=== PATIENT | male | born 1940 | race Caucasian/White ===

== ENCOUNTER 2016-09-14 12:00 | Inpatient (IN) | payer MEDICARE, OTHER ==
[2016-09-14] MEDS ORDERED: SODIUM CHLORIDE 0.9% 1,000 ML IV ONE ×4 (13:31→18:15)
[2016-09-14] MEDS ORDERED: HYDROmorphone 1 MG/ML SYRINGE IVP STA (13:32)
[2016-09-14] MEDS ORDERED: ONDANSETRON 4 MG/2 ML VIAL IVP STA (13:56)
[2016-09-14] MEDS ORDERED: ONDANSETRON 4 MG/2 ML VIAL ONE (14:01)
[2016-09-14] MEDS ORDERED: IOPAMIDOL-300 100 ML VIAL IVP ONE ×2 (15:03)
[2016-09-14] MEDS ORDERED: PIPERACILLIN/TAZOBACTAM 4.5 GM in SODIUM CHLORIDE 0.9% MINIBAG 100 ML IV STA (15:25)
[2016-09-14] MEDS ORDERED: HYDROmorphone PCA 10 MG IV PRN ×2 (16:23→18:52)
[2016-09-14] MEDS ORDERED: SODIUM CHLORIDE FLUSH 0.9% 10 ML SYRINGE IVP PRN (16:23)
[2016-09-14] MEDS ORDERED: ONDANSETRON 4 MG/2 ML VIAL IVP PRN ×2 (16:23→18:51)
[2016-09-14] MEDS ORDERED: LIDOCAINE MPF 1%-EPI 1:200000 30 ML VIAL SUBQ ONE ×2 (16:57)
[2016-09-14] MEDS ORDERED: BUPIVACAINE 0.25% PF 10 ML VIAL SUBQ ONE ×2 (16:57)
[2016-09-14] MEDS ORDERED: MIDAZOLAM 2 MG/2 ML VIAL IVP ONE (17:00)
[2016-09-14] MEDS ORDERED: LIDOCAINE-MPF 2% 5 ML VIAL IM ONE (17:00)
[2016-09-14] MEDS ORDERED: ONDANSETRON 4 MG/2 ML VIAL IVP ONE (17:00)
[2016-09-14] MEDS ORDERED: PROPOFOL 200 MG/20 ML VIAL IVP ONE (17:00)
[2016-09-14] MEDS ORDERED: fentaNYL 100 MCG/2 ML VIAL IVP ONE (17:00)
[2016-09-14] MEDS ORDERED: LACTATED RINGERS 1,000 ML IV SCH ×2 (17:00)
[2016-09-14] MEDS ORDERED: SUCCINYLCHOLINE 200 MG/10 ML VIAL IVP ONE (17:00)
[2016-09-14] MEDS ORDERED: DEXAMETHASONE 4 MG/ML VIAL IVP ONE (17:00)
[2016-09-14] MEDS ORDERED: ROCURONIUM 50 MG/5 ML VIAL IVP ONE (17:00)
[2016-09-14] MEDS ORDERED: PIPERACILLIN/TAZOBACTAM 3.375 GM in SODIUM CHLORIDE 0.9% MINIBAG 100 ML IV SCH ×4 (18:00)
[2016-09-14] MEDS ORDERED: HYDROmorphone 1 MG/ML SYRINGE ONE (18:45)
[2016-09-14] MEDS: HYDROmorphone 1 MG/ML SYRINGE ONE ×4 (18:46→19:11)
[2016-09-14] MEDS ORDERED: ALBUTEROL NEB 2.5 MG/3 ML INH ONE (18:52)
[2016-09-14] MEDS ORDERED: ALBUTEROL NEB 2.5 MG/3 ML INH PRN (18:53)
[2016-09-14] MEDS ORDERED: ALBUTEROL NEB 2.5 MG/3 ML INH STA (19:26)
[2016-09-14] MEDS: ACETAMINOPHEN 1,000 MG/100 ML 100 ML IV SCH (20:31)
[2016-09-14] MEDS ORDERED: LEVALBUTEROL 1.25 MG INH PRN (20:38)
[2016-09-14] MEDS: LACTATED RINGERS 1,000 ML IV SCH (20:41)
[2016-09-14] MEDS: PIPERACILLIN/TAZOBACTAM 3.375 GM in SODIUM CHLORIDE 0.9% MINIBAG 100 ML IV SCH (20:41)
[2016-09-14] MEDS: SODIUM CHLORIDE FLUSH 0.9% 10 ML SYRINGE IVP SCH (20:41)
[2016-09-14] MEDS: IPRATROPIUM 0.2 MG/ML NEB INH SCH (21:56)
[2016-09-14] MEDS ORDERED: SODIUM CHLORIDE FLUSH 0.9% 10 ML SYRINGE IVP SCH (22:00)
[2016-09-14] MEDS: HYDROmorphone PCA 10 MG IV PRN (22:22)
[2016-09-15] MEDS: PIPERACILLIN/TAZOBACTAM 3.375 GM in SODIUM CHLORIDE 0.9% MINIBAG 100 ML IV SCH ×4 (01:13→19:27)
[2016-09-15] MEDS: ACETAMINOPHEN 1,000 MG/100 ML 100 ML IV SCH ×4 (01:13→18:50)
[2016-09-15] MEDS: metroNIDAZOLE 500 MG/100 ML 100 ML IV SCH ×4 (06:11→23:59)
[2016-09-15] MEDS: SODIUM CHLORIDE FLUSH 0.9% 10 ML SYRINGE IVP SCH ×3 (06:11→19:30)
[2016-09-15] MEDS: BUDESONIDE 0.5 MG/2 ML NEB INH SCH ×2 (08:02→21:26)
[2016-09-15] MEDS: IPRATROPIUM 0.2 MG/ML NEB INH SCH ×4 (08:02→21:26)
[2016-09-15] MEDS: LACTATED RINGERS 1,000 ML IV SCH ×3 (09:23→20:53)
[2016-09-15] MEDS ORDERED: IPRATROPIUM 0.2 MG/ML NEB INH ONE (11:49)
[2016-09-15] MEDS ORDERED: LEVALBUTEROL 1.25 MG INH ONE (11:49)
[2016-09-15] MEDS: LEVALBUTEROL 1.25 MG INH SCH ×3 (11:51→21:41)
[2016-09-16] MEDS: ACETAMINOPHEN 1,000 MG/100 ML 100 ML IV SCH ×4 (00:28→20:16)
[2016-09-16] MEDS: PIPERACILLIN/TAZOBACTAM 3.375 GM in SODIUM CHLORIDE 0.9% MINIBAG 100 ML IV SCH ×4 (00:28→17:42)
[2016-09-16] MEDS: PANTOPRAZOLE 40 MG VIAL IVP SCH (06:25)
[2016-09-16] MEDS: metroNIDAZOLE 500 MG/100 ML 100 ML IV SCH ×4 (06:26→23:16)
[2016-09-16] MEDS: SODIUM CHLORIDE FLUSH 0.9% 10 ML SYRINGE IVP SCH ×3 (06:26→23:16)
[2016-09-16] MEDS: LACTATED RINGERS 1,000 ML IV SCH ×2 (06:27→20:16)
[2016-09-16] MEDS: HYDROmorphone PCA 10 MG IV PRN (07:07)
[2016-09-16] MEDS: BUDESONIDE 0.5 MG/2 ML NEB INH SCH ×2 (07:35→22:48)
[2016-09-16] MEDS: LEVALBUTEROL 1.25 MG INH SCH ×4 (07:35→22:48)
[2016-09-16] MEDS: IPRATROPIUM 0.2 MG/ML NEB INH SCH ×4 (07:36→22:48)
[2016-09-16] MEDS: SODIUM CHLORIDE FLUSH 0.9% 10 ML SYRINGE IVP PRN (12:44)
[2016-09-16] MEDS: ONDANSETRON 4 MG/2 ML VIAL IVP PRN (23:16)
[2016-09-17] MEDS: PIPERACILLIN/TAZOBACTAM 3.375 GM in SODIUM CHLORIDE 0.9% MINIBAG 100 ML IV SCH ×4 (00:45→19:57)
[2016-09-17] MEDS: ACETAMINOPHEN 1,000 MG/100 ML 100 ML IV SCH ×4 (00:45→19:56)
[2016-09-17] MEDS: metroNIDAZOLE 500 MG/100 ML 100 ML IV SCH ×4 (05:08→23:50)
[2016-09-17] MEDS: PANTOPRAZOLE 40 MG VIAL IVP SCH (06:21)
[2016-09-17] MEDS: LACTATED RINGERS 1,000 ML IV SCH ×3 (06:22→18:24)
[2016-09-17] MEDS: SODIUM CHLORIDE FLUSH 0.9% 10 ML SYRINGE IVP SCH ×3 (06:22→23:15)
[2016-09-17] MEDS: BUDESONIDE 0.5 MG/2 ML NEB INH SCH ×2 (07:00→22:03)
[2016-09-17] MEDS: IPRATROPIUM 0.2 MG/ML NEB INH SCH ×4 (07:00→22:03)
[2016-09-17] MEDS: LEVALBUTEROL 1.25 MG INH SCH ×4 (07:00→22:03)
[2016-09-17] MEDS: PHENOL THROAT SPRAY 177 ML MM PRN (08:53)
[2016-09-17] MEDS ORDERED: SODIUM PHOSPHATE 20 MMOL in SODIUM CHLORIDE 0.9% 250 ML IV ONE (10:30)
[2016-09-17] MEDS: diphenhydrAMINE 25 MG CAPSULE PO PRN (22:00)
[2016-09-18] MEDS: ACETAMINOPHEN 1,000 MG/100 ML 100 ML IV SCH ×4 (01:49→18:47)
[2016-09-18] MEDS: PIPERACILLIN/TAZOBACTAM 3.375 GM in SODIUM CHLORIDE 0.9% MINIBAG 100 ML IV SCH ×5 (02:42→19:09)
[2016-09-18] MEDS: LACTATED RINGERS 1,000 ML IV SCH ×4 (05:46→22:05)
[2016-09-18] MEDS: PANTOPRAZOLE 40 MG VIAL IVP SCH (07:03)
[2016-09-18] MEDS: SODIUM CHLORIDE FLUSH 0.9% 10 ML SYRINGE IVP SCH ×3 (07:04→22:06)
[2016-09-18] MEDS: metroNIDAZOLE 500 MG/100 ML 100 ML IV SCH ×3 (07:05→18:00)
[2016-09-18] MEDS: IPRATROPIUM 0.2 MG/ML NEB INH SCH ×3 (09:00→20:30)
[2016-09-18] MEDS: LEVALBUTEROL 1.25 MG INH SCH (09:00)
[2016-09-18] MEDS: BUDESONIDE 0.5 MG/2 ML NEB INH SCH (09:00)
[2016-09-18] MEDS ORDERED: IOPAMIDOL-300 100 ML VIAL IVP ONE (09:54)
[2016-09-18] MEDS ORDERED: LACTATED RINGERS 1,000 ML IV ONE ×4 (13:25→14:01)
[2016-09-18] MEDS ORDERED: PROPOFOL 200 MG/20 ML VIAL IVP ONE (13:30)
[2016-09-18] MEDS ORDERED: MIDAZOLAM 2 MG/2 ML VIAL IVP ONE (13:30)
[2016-09-18] MEDS ORDERED: ROCURONIUM 50 MG/5 ML VIAL IVP ONE (13:30)
[2016-09-18] MEDS ORDERED: fentaNYL 250 MCG/5 ML VIAL IVP ONE (13:30)
[2016-09-18] MEDS ORDERED: BUPIVACAINE 0.25%-EPI 1:200000 PF 30 ML VIAL SUBQ ONE (13:30)
[2016-09-18] MEDS ORDERED: SUCCINYLCHOLINE 200 MG/10 ML VIAL IVP ONE (13:30)
[2016-09-18] MEDS ORDERED: SUFENTA/BUPIV 0.4 MCG/0.0625% 150 ML EP ONE (15:19)
[2016-09-18] MEDS ORDERED: SUFENTA/BUPIV 0.4 MCG/0.0625% EPIDURAL 150 ML EP PRN (16:29)
[2016-09-18] MEDS ORDERED: ONDANSETRON 4 MG/2 ML VIAL IVP PRN (16:29)
[2016-09-18] MEDS ORDERED: NALBUPHINE 20 MG/ML AMP IVP PRN (16:29)
[2016-09-18] MEDS ORDERED: LORazepam 2 MG/ML SYRINGE IVP PRN (16:41)
[2016-09-18] MEDS: PROPOFOL 1000 MG/100 ML 100 ML IV SCH (17:20)
[2016-09-18] MEDS: TPN (CLINIMIX E 5/15) 2,000 ML with MULTIVITAMIN 10 ML, TRACE ELEMENTS V CONC 1 ML IV SCH ×3 (19:06)
[2016-09-18] MEDS: FAT EMULSION 20% 250 ML IV SCH (19:09)
[2016-09-18] MEDS ORDERED: LEVALBUTEROL 1.25 MG INH ONE (19:41)
[2016-09-18] MEDS ORDERED: FLUOCINONIDE 0.05% CREAM 15 GM TUBE TOP PRN (21:00)
[2016-09-19] MEDS: metroNIDAZOLE 500 MG/100 ML 100 ML IV SCH ×5 (00:06→23:47)
[2016-09-19] MEDS: INSULIN REGULAR HUMAN 100 UNIT/1 ML 10 ML MDV SUBQ SCH ×5 (00:14→23:52)
[2016-09-19] MEDS: ACETAMINOPHEN 1,000 MG/100 ML 100 ML IV SCH ×4 (01:14→18:07)
[2016-09-19] MEDS: PIPERACILLIN/TAZOBACTAM 3.375 GM in SODIUM CHLORIDE 0.9% MINIBAG 100 ML IV SCH ×4 (01:14→18:07)
[2016-09-19] MEDS: LACTATED RINGERS 1,000 ML IV SCH (01:20)
[2016-09-19] MEDS: SUFENTA/BUPIV 0.4 MCG/0.0625% 150 ML EP PRN ×2 (04:19→15:45)
[2016-09-19] MEDS: SODIUM CHLORIDE FLUSH 0.9% 10 ML SYRINGE IVP SCH ×3 (05:52→21:41)
[2016-09-19] MEDS ORDERED: POTASSIUM PHOSPHATE 21 MMOL in SODIUM CHLORIDE 0.9% 250 ML IV SCH (06:22)
[2016-09-19] MEDS: PROPOFOL 1000 MG/100 ML 100 ML IV SCH ×3 (06:40→20:12)
[2016-09-19] MEDS: PANTOPRAZOLE 40 MG VIAL IVP SCH ×2 (06:47→06:54)
[2016-09-19] MEDS: ALBUTEROL NEB 2.5 MG/3 ML INH PRN (07:40)
[2016-09-19] MEDS: IPRATROPIUM 0.2 MG/ML NEB INH SCH ×4 (07:40→20:19)
[2016-09-19] MEDS: TPN (CLINIMIX E 5/15) 2,000 ML with MULTIVITAMIN 10 ML, TRACE ELEMENTS V CONC 1 ML IV SCH ×6 (08:00→18:37)
[2016-09-19] MEDS: CHLORHEXIDINE GLUCONATE 15 ML UDC PO SCH ×3 (09:26→21:41)
[2016-09-19] MEDS: PHENOL THROAT SPRAY 177 ML MM PRN (15:29)
[2016-09-19] MEDS: FAT EMULSION 20% 250 ML IV SCH (18:37)
[2016-09-20] MEDS: ACETAMINOPHEN 1,000 MG/100 ML 100 ML IV SCH ×4 (01:15→18:28)
[2016-09-20] MEDS: PROPOFOL 1000 MG/100 ML 100 ML IV SCH ×4 (01:27→15:02)
[2016-09-20] MEDS: PIPERACILLIN/TAZOBACTAM 3.375 GM in SODIUM CHLORIDE 0.9% MINIBAG 100 ML IV SCH ×5 (01:28→17:45)
[2016-09-20] MEDS: LACTATED RINGERS 1,000 ML IV SCH (02:45)
[2016-09-20] MEDS: metroNIDAZOLE 500 MG/100 ML 100 ML IV SCH ×4 (05:39→23:47)
[2016-09-20] MEDS: SODIUM CHLORIDE FLUSH 0.9% 10 ML SYRINGE IVP SCH ×3 (06:55→21:30)
[2016-09-20] MEDS: PANTOPRAZOLE 40 MG VIAL IVP SCH (06:55)
[2016-09-20] MEDS: INSULIN REGULAR HUMAN 100 UNIT/1 ML 10 ML MDV SUBQ SCH ×3 (07:03→18:27)
[2016-09-20] MEDS: ALBUTEROL NEB 2.5 MG/3 ML INH PRN (07:12)
[2016-09-20] MEDS: IPRATROPIUM 0.2 MG/ML NEB INH SCH ×3 (07:12→15:09)
[2016-09-20] MEDS: SUFENTA/BUPIV 0.4 MCG/0.0625% 150 ML EP PRN ×2 (08:36→19:23)
[2016-09-20] MEDS: POTASSIUM CHLOR 20 MEQ/100 ML 100 ML IV SCH ×2 (08:42→09:40)
[2016-09-20] MEDS: CHLORHEXIDINE GLUCONATE 15 ML UDC PO SCH ×2 (09:40→21:26)
[2016-09-20] MEDS ORDERED: POTASSIUM PHOSPHATE 15 MMOL in SODIUM CHLORIDE 0.9% 250 ML IV ONE (10:00)
[2016-09-20] MEDS ORDERED: CALCIUM GLUCONATE 1,000 MG in SODIUM CHLORIDE 0.9% 50 ML IV ONE (10:20)
[2016-09-20] MEDS: SODIUM CHLORIDE FLUSH 0.9% 10 ML SYRINGE IVP PRN (15:03)
[2016-09-20] MEDS: HEPARIN 5,000 UNIT/ML VIAL SUBQ SCH ×2 (15:05→21:30)
[2016-09-20] MEDS ORDERED: ALTEPLASE 2 MG VIAL IC ONE (15:51)
[2016-09-20] MEDS: TPN (CLINIMIX E 5/15) 2,000 ML with MULTIVITAMIN 10 ML, TRACE ELEMENTS V CONC 1 ML, POT... IV SCH ×5 (19:33)
[2016-09-20] MEDS: diphenhydrAMINE INJ 50 MG/ML VIAL IVP PRN (21:30)
[2016-09-21] MEDS: INSULIN REGULAR HUMAN 100 UNIT/1 ML 10 ML MDV SUBQ SCH ×4 (00:03→19:22)
[2016-09-21] MEDS: HEPARIN 5,000 UNIT/ML VIAL SUBQ SCH ×3 (05:34→21:12)
[2016-09-21] MEDS: metroNIDAZOLE 500 MG/100 ML 100 ML IV SCH ×4 (05:34→23:10)
[2016-09-21] MEDS: LACTATED RINGERS 1,000 ML IV SCH (05:34)
[2016-09-21] MEDS: SODIUM CHLORIDE FLUSH 0.9% 10 ML SYRINGE IVP SCH ×3 (05:34→21:27)
[2016-09-21] MEDS: ACETAMINOPHEN 1,000 MG/100 ML 100 ML IV SCH ×4 (06:44→18:32)
[2016-09-21] MEDS: PANTOPRAZOLE 40 MG VIAL IVP SCH (06:44)
[2016-09-21] MEDS: PIPERACILLIN/TAZOBACTAM 3.375 GM in SODIUM CHLORIDE 0.9% MINIBAG 100 ML IV SCH ×5 (07:24→18:36)
[2016-09-21] MEDS: SUFENTA/BUPIV 0.4 MCG/0.0625% 150 ML EP PRN ×2 (07:24→18:25)
[2016-09-21] MEDS: POTASSIUM CHLOR 10 MEQ/100 ML 100 ML IV SCH ×4 (07:54→19:21)
[2016-09-21] MEDS: IPRATROPIUM 0.2 MG/ML NEB INH SCH ×5 (09:25→23:28)
[2016-09-21] MEDS: CHLORHEXIDINE GLUCONATE 15 ML UDC PO SCH ×2 (09:52→21:16)
[2016-09-21] MEDS: PHENOL THROAT SPRAY 177 ML MM PRN ×2 (11:17→15:11)
[2016-09-21] MEDS ORDERED: MIN OIL/DIMETHICON/COCONUT OIL 92 GM TUBE TOP ONE (12:02)
[2016-09-21] MEDS ORDERED: MIN OIL/DIMETHICON/COCONUT OIL 92 GM TUBE TOP PRN (12:15)
[2016-09-21] MEDS: TPN (CLINIMIX E 5/15) 2,000 ML with MULTIVITAMIN 10 ML, TRACE ELEMENTS V CONC 1 ML, POT... IV SCH ×5 (19:15)
[2016-09-21] MEDS: diphenhydrAMINE INJ 50 MG/ML VIAL IVP PRN (21:16)
[2016-09-21] MEDS ORDERED: SODIUM CHLORIDE INHALATION 3 ML NEB ONE (23:07)
[2016-09-22] MEDS: ACETAMINOPHEN 1,000 MG/100 ML 100 ML IV SCH ×4 (00:17→19:44)
[2016-09-22] MEDS: PIPERACILLIN/TAZOBACTAM 3.375 GM in SODIUM CHLORIDE 0.9% MINIBAG 100 ML IV SCH ×4 (00:30→19:44)
[2016-09-22] MEDS: INSULIN REGULAR HUMAN 100 UNIT/1 ML 10 ML MDV SUBQ SCH ×4 (00:42→18:34)
[2016-09-22] MEDS ORDERED: FUROSEMIDE 20 MG/2 ML VIAL IVP SCH (02:13)
[2016-09-22] MEDS ORDERED: VANCOMYCIN INJ 1.25 GM in SODIUM CHLORIDE 0.9% 500 ML IV SCH (03:00)
[2016-09-22] MEDS ORDERED: VANCOMYCIN PER PHARMACY 1 GM in SODIUM CHLORIDE 0.9% 250 ML IV SCH (03:00)
[2016-09-22] MEDS: HEPARIN 5,000 UNIT/ML VIAL SUBQ SCH ×3 (05:29→21:23)
[2016-09-22] MEDS: LACTATED RINGERS 1,000 ML IV SCH (05:31)
[2016-09-22] MEDS: SUFENTA/BUPIV 0.4 MCG/0.0625% 150 ML EP PRN ×2 (05:34→18:31)
[2016-09-22] MEDS: metroNIDAZOLE 500 MG/100 ML 100 ML IV SCH ×4 (05:37→23:24)
[2016-09-22] MEDS: SODIUM CHLORIDE FLUSH 0.9% 10 ML SYRINGE IVP SCH ×3 (06:26→21:24)
[2016-09-22] MEDS: PANTOPRAZOLE 40 MG VIAL IVP SCH (07:02)
[2016-09-22] MEDS ORDERED: POTASSIUM PHOSPHATE 15 MMOL in SODIUM CHLORIDE 0.9% 250 ML IV ONE (08:00)
[2016-09-22] MEDS: CHLORHEXIDINE GLUCONATE 15 ML UDC PO SCH ×2 (09:36→21:24)
[2016-09-22] MEDS: IPRATROPIUM 0.2 MG/ML NEB INH SCH ×4 (09:45→19:00)
[2016-09-22] MEDS: ALBUTEROL NEB 2.5 MG/3 ML INH PRN (09:45)
[2016-09-22] MEDS: LEVALBUTEROL 1.25 MG INH SCH (11:31)
[2016-09-22] MEDS: VANCOMYCIN INJ 1 GM, VANCOMYCIN INJ 500 MG in SODIUM CHLORIDE 0.9% 500 ML IV SCH (13:58)
[2016-09-22] MEDS: TPN (CLINIMIX E 5/15) 2,000 ML with MULTIVITAMIN 10 ML, TRACE ELEMENTS V CONC 1 ML, POT... IV SCH ×5 (18:30)
[2016-09-22] MEDS: diphenhydrAMINE INJ 50 MG/ML VIAL IVP PRN (21:24)
[2016-09-23] MEDS: PIPERACILLIN/TAZOBACTAM 3.375 GM in SODIUM CHLORIDE 0.9% MINIBAG 100 ML IV SCH ×4 (00:53→18:37)
[2016-09-23] MEDS: ACETAMINOPHEN 1,000 MG/100 ML 100 ML IV SCH ×4 (01:38→18:37)
[2016-09-23] MEDS: VANCOMYCIN INJ 1 GM, VANCOMYCIN INJ 500 MG in SODIUM CHLORIDE 0.9% 500 ML IV SCH ×2 (01:38→13:43)
[2016-09-23] MEDS: INSULIN REGULAR HUMAN 100 UNIT/1 ML 10 ML MDV SUBQ SCH ×4 (01:39→17:43)
[2016-09-23] MEDS: HEPARIN 5,000 UNIT/ML VIAL SUBQ SCH ×3 (06:00→21:39)
[2016-09-23] MEDS: metroNIDAZOLE 500 MG/100 ML 100 ML IV SCH ×3 (06:02→17:46)
[2016-09-23] MEDS: PANTOPRAZOLE 40 MG VIAL IVP SCH (06:59)
[2016-09-23] MEDS: SODIUM CHLORIDE FLUSH 0.9% 10 ML SYRINGE IVP SCH ×3 (06:59→21:39)
[2016-09-23] MEDS: PROPOFOL 1000 MG/100 ML 100 ML IV SCH ×2 (07:21→17:01)
[2016-09-23] MEDS ORDERED: FLUTICASONE NASAL SPRAY NAS SCH ×2 (09:00)
[2016-09-23] MEDS: IPRATROPIUM 0.2 MG/ML NEB INH SCH ×4 (09:58→19:00)
[2016-09-23] MEDS: CHLORHEXIDINE GLUCONATE 15 ML UDC PO SCH ×2 (09:59→20:29)
[2016-09-23] MEDS: NICOTINE 21 MG PATCH TOP SCH (10:09)
[2016-09-23] MEDS: SUFENTA/BUPIV 0.4 MCG/0.0625% 150 ML EP PRN ×2 (12:49→22:13)
[2016-09-23] MEDS: TPN (CLINIMIX E 5/15) 2,000 ML with MULTIVITAMIN 10 ML, TRACE ELEMENTS V CONC 1 ML, POT... IV SCH ×5 (18:37)
[2016-09-23] MEDS: LACTATED RINGERS 1,000 ML IV SCH (21:39)
[2016-09-23] MEDS: diphenhydrAMINE INJ 50 MG/ML VIAL IVP PRN (21:39)
[2016-09-24] MEDS: metroNIDAZOLE 500 MG/100 ML 100 ML IV SCH ×4 (00:02→18:15)
[2016-09-24] MEDS: ACETAMINOPHEN 1,000 MG/100 ML 100 ML IV SCH ×2 (00:02→06:10)
[2016-09-24] MEDS: INSULIN REGULAR HUMAN 100 UNIT/1 ML 10 ML MDV SUBQ SCH ×4 (00:06→18:16)
[2016-09-24] MEDS: PIPERACILLIN/TAZOBACTAM 3.375 GM in SODIUM CHLORIDE 0.9% MINIBAG 100 ML IV SCH ×4 (00:07→19:17)
[2016-09-24] MEDS: VANCOMYCIN INJ 1 GM, VANCOMYCIN INJ 500 MG in SODIUM CHLORIDE 0.9% 500 ML IV SCH ×2 (01:38→13:34)
[2016-09-24] MEDS: HEPARIN 5,000 UNIT/ML VIAL SUBQ SCH ×3 (06:10→22:17)
[2016-09-24] MEDS: PANTOPRAZOLE 40 MG VIAL IVP SCH (06:11)
[2016-09-24] MEDS: SODIUM CHLORIDE FLUSH 0.9% 10 ML SYRINGE IVP SCH ×3 (06:11→20:15)
[2016-09-24] MEDS ORDERED: MAGNESIUM SULFATE 2 GRAM 50 ML IV ONE (08:00)
[2016-09-24] MEDS ORDERED: oxyCOD/ACETAMIN 5 MG/325 MG TABLET PO PRN (08:07)
[2016-09-24] MEDS: IPRATROPIUM 0.2 MG/ML NEB INH SCH ×3 (08:44→20:00)
[2016-09-24] MEDS ORDERED: TRIAMCINOLONE 55 MCG NASAL SPRAY NAS SCH (09:00)
[2016-09-24] MEDS: CHLORHEXIDINE GLUCONATE 15 ML UDC PO SCH ×2 (09:02→20:27)
[2016-09-24] MEDS: NICOTINE 21 MG PATCH TOP SCH (09:17)
[2016-09-24] MEDS: oxyCOD/ACETAMIN 5 MG/325 MG TABLET PO PRN ×3 (13:10→20:27)
[2016-09-24] MEDS ORDERED: SODIUM CHLORIDE 0.9% 250 ML IV ONE (18:05)
[2016-09-24] MEDS: TPN (CLINIMIX E 5/15) 2,000 ML with MULTIVITAMIN 10 ML, TRACE ELEMENTS V CONC 1 ML, POT... IV SCH ×5 (19:06)
[2016-09-24] MEDS: SODIUM CHLORIDE FLUSH 0.9% 10 ML SYRINGE IVP PRN (19:08)
[2016-09-24] MEDS: FLUTICASONE NASAL SPRAY NAS SCH (20:28)
[2016-09-25] MEDS: oxyCOD/ACETAMIN 5 MG/325 MG TABLET PO PRN ×6 (00:09→19:57)
[2016-09-25] MEDS: metroNIDAZOLE 500 MG/100 ML 100 ML IV SCH ×4 (00:10→18:16)
[2016-09-25] MEDS ORDERED: FUROSEMIDE 20 MG/2 ML VIAL IVP SCH (01:12)
[2016-09-25] MEDS ORDERED: FUROSEMIDE 20 MG/2 ML VIAL IVP ONE (01:14)
[2016-09-25] MEDS: PIPERACILLIN/TAZOBACTAM 3.375 GM in SODIUM CHLORIDE 0.9% MINIBAG 100 ML IV SCH ×4 (01:16→19:26)
[2016-09-25] MEDS: INSULIN REGULAR HUMAN 100 UNIT/1 ML 10 ML MDV SUBQ SCH ×4 (01:19→18:21)
[2016-09-25] MEDS: VANCOMYCIN INJ 1 GM, VANCOMYCIN INJ 500 MG in SODIUM CHLORIDE 0.9% 500 ML IV SCH ×2 (01:48→14:15)
[2016-09-25] MEDS: SODIUM CHLORIDE FLUSH 0.9% 10 ML SYRINGE IVP PRN (04:40)
[2016-09-25] MEDS: HEPARIN 5,000 UNIT/ML VIAL SUBQ SCH ×3 (05:34→21:14)
[2016-09-25] MEDS: SODIUM CHLORIDE FLUSH 0.9% 10 ML SYRINGE IVP SCH ×3 (05:43→23:06)
[2016-09-25] MEDS: IPRATROPIUM 0.2 MG/ML NEB INH SCH ×4 (07:00→19:00)
[2016-09-25] MEDS: CHLORHEXIDINE GLUCONATE 15 ML UDC PO SCH ×2 (09:27→21:27)
[2016-09-25] MEDS: NICOTINE 21 MG PATCH TOP SCH (09:27)
[2016-09-25] MEDS: FUROSEMIDE 20 MG TABLET PO SCH (10:30)
[2016-09-25] MEDS: TPN (CLINIMIX E 5/15) 2,000 ML with MULTIVITAMIN 10 ML, TRACE ELEMENTS V CONC 1 ML, POT... IV SCH ×5 (19:26)
[2016-09-25] MEDS: FAT EMULSION 20% 250 ML IV SCH (19:26)
[2016-09-25] MEDS: FLUTICASONE NASAL SPRAY NAS SCH (21:15)
[2016-09-25] MEDS: diphenhydrAMINE 25 MG CAPSULE PO PRN (21:30)
[2016-09-26] MEDS: INSULIN REGULAR HUMAN 100 UNIT/1 ML 10 ML MDV SUBQ SCH ×5 (00:19→21:14)
[2016-09-26] MEDS: oxyCOD/ACETAMIN 5 MG/325 MG TABLET PO PRN ×6 (00:34→20:24)
[2016-09-26] MEDS: PIPERACILLIN/TAZOBACTAM 3.375 GM in SODIUM CHLORIDE 0.9% MINIBAG 100 ML IV SCH ×4 (01:05→18:37)
[2016-09-26] MEDS: VANCOMYCIN INJ 1 GM, VANCOMYCIN INJ 500 MG in SODIUM CHLORIDE 0.9% 500 ML IV SCH ×2 (01:30→13:38)
[2016-09-26] MEDS: HEPARIN 5,000 UNIT/ML VIAL SUBQ SCH ×3 (06:04→21:02)
[2016-09-26] MEDS: SODIUM CHLORIDE FLUSH 0.9% 10 ML SYRINGE IVP SCH ×3 (06:17→21:03)
[2016-09-26] MEDS: SODIUM CHLORIDE FLUSH 0.9% 10 ML SYRINGE IVP PRN (06:17)
[2016-09-26] MEDS: metroNIDAZOLE 500 MG/100 ML 100 ML IV SCH ×4 (06:38→17:31)
[2016-09-26] MEDS ORDERED: POLYETHYLENE GLYCOL 3350 17 GM PACKET PO PRN (09:04)
[2016-09-26] MEDS: IPRATROPIUM 0.2 MG/ML NEB INH SCH ×2 (09:07→16:55)
[2016-09-26] MEDS: NICOTINE 21 MG PATCH TOP SCH (09:15)
[2016-09-26] MEDS: FUROSEMIDE 20 MG TABLET PO SCH (09:15)
[2016-09-26] MEDS: CHLORHEXIDINE GLUCONATE 15 ML UDC PO SCH ×2 (09:15→20:25)
[2016-09-26] MEDS: MORPHINE 2 MG/ML SYRINGE IVP PRN ×3 (11:08→18:41)
[2016-09-26] MEDS: DOCUSATE SODIUM 100 MG CAPSULE PO SCH ×2 (14:43→20:27)
[2016-09-26] MEDS: METOCLOPRAMIDE 10 MG TABLET PO SCH ×2 (16:08→20:25)
[2016-09-26] MEDS ORDERED: DEXTROSE 5% 1,000 ML IV PRN (17:07)
[2016-09-26] MEDS ORDERED: DEXTROSE 50% ABBOJECT 25 GM/50 ML SYRINGE IVP PRN (17:07)
[2016-09-26] MEDS ORDERED: DEXTROSE GEL 37.5 GM TUBE PO PRN (17:07)
[2016-09-26] MEDS ORDERED: GLUCAGON 1 MG/ML VIAL SUBQ PRN (17:07)
[2016-09-26] MEDS: TPN (CLINIMIX E 5/15) 2,000 ML with MULTIVITAMIN 10 ML, TRACE ELEMENTS V CONC 1 ML, POT... IV SCH ×5 (18:32)
[2016-09-26] MEDS: FAT EMULSION 20% 250 ML IV SCH (18:34)
[2016-09-26] MEDS: FLUTICASONE NASAL SPRAY NAS SCH (20:28)
[2016-09-27] MEDS: metroNIDAZOLE 500 MG/100 ML 100 ML IV SCH ×4 (00:23→17:20)
[2016-09-27] MEDS: oxyCOD/ACETAMIN 5 MG/325 MG TABLET PO PRN ×3 (00:23→17:19)
[2016-09-27] MEDS: PIPERACILLIN/TAZOBACTAM 3.375 GM in SODIUM CHLORIDE 0.9% MINIBAG 100 ML IV SCH ×4 (00:23→18:40)
[2016-09-27] MEDS: SODIUM CHLORIDE FLUSH 0.9% 10 ML SYRINGE IVP PRN ×2 (00:24→04:23)
[2016-09-27] MEDS ORDERED: VANCOMYCIN 1 GM VIAL ONE (01:42)
[2016-09-27] MEDS ORDERED: SODIUM CHLORIDE 0.9% 500 ML IV ONE (01:43)
[2016-09-27] MEDS: VANCOMYCIN INJ 1 GM, VANCOMYCIN INJ 500 MG in SODIUM CHLORIDE 0.9% 500 ML IV SCH ×3 (01:57→14:56)
[2016-09-27] MEDS: DOCUSATE SODIUM 100 MG CAPSULE PO SCH ×3 (06:11→21:17)
[2016-09-27] MEDS: METOCLOPRAMIDE 10 MG TABLET PO SCH (06:31)
[2016-09-27] MEDS: SODIUM CHLORIDE FLUSH 0.9% 10 ML SYRINGE IVP SCH ×3 (06:31→21:17)
[2016-09-27] MEDS: HEPARIN 5,000 UNIT/ML VIAL SUBQ SCH ×3 (06:31→21:12)
[2016-09-27] MEDS: IPRATROPIUM 0.2 MG/ML NEB INH SCH ×2 (07:55→08:09)
[2016-09-27] MEDS ORDERED: IOPAMIDOL-300 100 ML VIAL IVP ONE (08:46)
[2016-09-27] MEDS: INSULIN REGULAR HUMAN 100 UNIT/1 ML 10 ML MDV SUBQ SCH ×2 (09:15→12:40)
[2016-09-27] MEDS: NICOTINE 21 MG PATCH TOP SCH (09:26)
[2016-09-27] MEDS: CHLORHEXIDINE GLUCONATE 15 ML UDC PO SCH ×2 (09:26→21:10)
[2016-09-27] MEDS: FUROSEMIDE 20 MG TABLET PO SCH (09:26)
[2016-09-27] MEDS ORDERED: IPRATROPIUM 0.2 MG/ML NEB INH PRN (10:04)
[2016-09-27] MEDS: FLUTICASONE NASAL SPRAY NAS SCH (21:12)
[2016-09-28] MEDS: VANCOMYCIN INJ 1 GM, VANCOMYCIN INJ 500 MG in SODIUM CHLORIDE 0.9% 500 ML IV SCH (01:26)
[2016-09-28] MEDS: PIPERACILLIN/TAZOBACTAM 3.375 GM in SODIUM CHLORIDE 0.9% MINIBAG 100 ML IV SCH ×4 (01:26→19:08)
[2016-09-28] MEDS: metroNIDAZOLE 500 MG/100 ML 100 ML IV SCH ×2 (01:28→05:53)
[2016-09-28] MEDS: DOCUSATE SODIUM 100 MG CAPSULE PO SCH ×3 (05:52→16:16)
[2016-09-28] MEDS: SODIUM CHLORIDE FLUSH 0.9% 10 ML SYRINGE IVP SCH ×3 (05:53→21:16)
[2016-09-28] MEDS: NICOTINE 21 MG PATCH TOP SCH (08:40)
[2016-09-28] MEDS: FUROSEMIDE 20 MG TABLET PO SCH (08:41)
[2016-09-28] MEDS: CHLORHEXIDINE GLUCONATE 15 ML UDC PO SCH ×2 (08:41→21:16)
[2016-09-28] MEDS: HEPARIN 5,000 UNIT/ML VIAL SUBQ SCH ×3 (08:41→21:12)
[2016-09-28] MEDS ORDERED: ACETAMINOPHEN 325 MG TABLET PO PRN (09:06)
[2016-09-28] MEDS: TAMSULOSIN 0.4 MG CAPSULE PO SCH (21:12)
[2016-09-28] MEDS: FLUTICASONE NASAL SPRAY NAS SCH (21:13)
[2016-09-29] MEDS: PIPERACILLIN/TAZOBACTAM 3.375 GM in SODIUM CHLORIDE 0.9% MINIBAG 100 ML IV SCH ×2 (01:47→06:42)
[2016-09-29] MEDS ORDERED: NICOTINE 14 MG PATCH TOP ONE (05:50)
[2016-09-29] MEDS: NICOTINE 14 MG PATCH TOP SCH (05:52)
[2016-09-29] MEDS: HEPARIN 5,000 UNIT/ML VIAL SUBQ SCH ×3 (06:42→21:01)
[2016-09-29] MEDS: SODIUM CHLORIDE FLUSH 0.9% 10 ML SYRINGE IVP SCH ×3 (06:43→21:03)
[2016-09-29] MEDS: DOCUSATE SODIUM 100 MG CAPSULE PO SCH ×3 (06:54→20:54)
[2016-09-29] MEDS: CHLORHEXIDINE GLUCONATE 15 ML UDC PO SCH ×2 (08:46→21:14)
[2016-09-29] MEDS ORDERED: TAMSULOSIN 0.4 MG CAPSULE PO SCH (09:00)
[2016-09-29] MEDS: CEFUROXIME AXETIL 250 MG TABLET PO SCH ×2 (10:55→21:03)
[2016-09-29] MEDS ORDERED: CHOLESTYRAMINE 4 GM PACKET PO SCH (12:00)
[2016-09-29] MEDS: FLUTICASONE NASAL SPRAY NAS SCH (21:02)
[2016-09-29] MEDS: TAMSULOSIN 0.4 MG CAPSULE PO SCH (21:03)
[2016-09-29] MEDS: SODIUM CHLORIDE FLUSH 0.9% 10 ML SYRINGE IVP PRN (21:03)
[2016-09-30] MEDS: diphenhydrAMINE 25 MG CAPSULE PO PRN (00:11)
[2016-09-30] MEDS: DOCUSATE SODIUM 100 MG CAPSULE PO SCH ×3 (05:38→22:39)
[2016-09-30] MEDS: SODIUM CHLORIDE FLUSH 0.9% 10 ML SYRINGE IVP SCH ×3 (06:38→21:03)
[2016-09-30] MEDS: CHLORHEXIDINE GLUCONATE 15 ML UDC PO SCH ×2 (09:26→21:08)
[2016-09-30] MEDS: CEFUROXIME AXETIL 250 MG TABLET PO SCH ×2 (09:28→21:01)
[2016-09-30] MEDS: NICOTINE 14 MG PATCH TOP SCH (09:28)
[2016-09-30] MEDS: KETOROLAC 10 MG TABLET PO PRN ×2 (11:02→17:05)
[2016-09-30] MEDS: ONDANSETRON 4 MG/2 ML VIAL IVP PRN (21:01)
[2016-09-30] MEDS: TAMSULOSIN 0.4 MG CAPSULE PO SCH (21:02)
[2016-09-30] MEDS: SODIUM CHLORIDE FLUSH 0.9% 10 ML SYRINGE IVP PRN (21:03)
[2016-09-30] MEDS: SODIUM/POTASSIUM/MAG SULFATES 354 ML PREP KIT PO SCH (21:39)
[2016-10-01] MEDS: SODIUM CHLORIDE FLUSH 0.9% 10 ML SYRINGE IVP SCH ×3 (00:50→17:41)
[2016-10-01] MEDS: FLUTICASONE NASAL SPRAY NAS SCH ×2 (05:23→20:37)
[2016-10-01] MEDS: SODIUM CHLORIDE FLUSH 0.9% 10 ML SYRINGE IVP PRN (06:24)
[2016-10-01] MEDS: DOCUSATE SODIUM 100 MG CAPSULE PO SCH ×3 (09:58→20:38)
[2016-10-01] MEDS: SODIUM/POTASSIUM/MAG SULFATES 354 ML PREP KIT PO SCH (12:19)
[2016-10-01] MEDS: CEFUROXIME AXETIL 250 MG TABLET PO SCH ×2 (12:20→20:36)
[2016-10-01] MEDS: NICOTINE 14 MG PATCH TOP SCH (12:20)
[2016-10-01] MEDS: CHLORHEXIDINE GLUCONATE 15 ML UDC PO SCH ×2 (12:21→20:37)
[2016-10-01] MEDS: ONDANSETRON 4 MG/2 ML VIAL IVP PRN (12:27)
[2016-10-01] MEDS ORDERED: LACTATED RINGERS 1,000 ML IV ONE (14:07)
[2016-10-01] MEDS ORDERED: KETAMINE 500 MG/10 ML VIAL IVP ONE (14:20)
[2016-10-01] MEDS ORDERED: MIDAZOLAM 2 MG/2 ML VIAL IVP ONE (14:20)
[2016-10-01] MEDS ORDERED: LIDOCAINE-MPF 2% 5 ML VIAL IM ONE (14:20)
[2016-10-01] MEDS: TAMSULOSIN 0.4 MG CAPSULE PO SCH (20:36)
[2016-10-01] MEDS: diphenhydrAMINE 25 MG CAPSULE PO PRN (20:45)
[2016-10-02] MEDS: DOCUSATE SODIUM 100 MG CAPSULE PO SCH (06:06)
[2016-10-02] MEDS: SODIUM CHLORIDE FLUSH 0.9% 10 ML SYRINGE IVP SCH (06:07)
[2016-10-02] MEDS: NICOTINE 14 MG PATCH TOP SCH (08:47)
[2016-10-02] MEDS: CEFUROXIME AXETIL 250 MG TABLET PO SCH (08:47)
[2016-10-02] MEDS: CHLORHEXIDINE GLUCONATE 15 ML UDC PO SCH (08:49)
== END 2016-10-02 11:59 | disposition home health service (06) | DRG 329 ==
PROC: 0DN80ZZ Release Small Intestine, Open Approach (ICD-10-PCS; principal; 2016-09-14 16:00)
PROC: 0DB80ZZ Excision of Small Intestine, Open Approach (ICD-10-PCS; principal; 2016-09-14 16:00)
PROC: 0DJD0ZZ Inspection of Lower Intestinal Tract, Open Approach (ICD-10-PCS; 2016-09-18)
PROC: 3E0436Z Introduction of Nutritional Substance into Central Vein, Percutaneous Approach (ICD-10-PCS; 2016-09-18)
PROC: 02H633Z Insertion of Infusion Device into Right Atrium, Percutaneous Approach (ICD-10-PCS; 2016-09-18)
PROC: 5A1945Z Respiratory Ventilation, 24-96 Consecutive Hours (ICD-10-PCS; 2016-09-18)
PROC: 0DJD8ZZ Inspection of Lower Intestinal Tract, Via Natural or Artificial Opening Endoscopic (ICD-10-PCS; 2016-09-18)
PROC: 0W3P8ZZ Control Bleeding in Gastrointestinal Tract, Via Natural or Artificial Opening Endoscopic (ICD-10-PCS; 2016-10-01)
DX: K65.9 Peritonitis, unspecified (principal); K56.5 Intestinal adhesions [bands] with obstruction (postinfection); F17.200 Nicotine dependence, unspecified, uncomplicated; K65.1 Peritoneal abscess; K63.1 Perforation of intestine (nontraumatic); Z79.82 Long term (current) use of aspirin; K55.021 Focal (segmental) acute infarction of small intestine; K55.21 Angiodysplasia of colon with hemorrhage; J96.21 Acute and chronic respiratory failure with hypoxia; T81.4XXA Infection following a procedure, initial encounter; J44.9 Chronic obstructive pulmonary disease, unspecified; Y83.8 Other surgical procedures as the cause of abnormal reaction of the patient, or of later complication, without mention of misadventure at the time of the procedure; B96.20 Unspecified Escherichia coli [E. coli] as the cause of diseases classified elsewhere; Z16.30 Resistance to unspecified antimicrobial drugs; K57.30 Diverticulosis of large intestine without perforation or abscess without bleeding; Y92.230 Patient room in hospital as the place of occurrence of the external cause; R00.0 Tachycardia, unspecified; G47.30 Sleep apnea, unspecified; Z99.81 Dependence on supplemental oxygen; F17.210 Nicotine dependence, cigarettes, uncomplicated; K21.9 Gastro-esophageal reflux disease without esophagitis; I72.2 Aneurysm of renal artery; R41.0 Disorientation, unspecified; T40.605A Adverse effect of unspecified narcotics, initial encounter; N50.89 Other specified disorders of the male genital organs; R19.7 Diarrhea, unspecified; D75.1 Secondary polycythemia; R91.8 Other nonspecific abnormal finding of lung field; Z79.2 Long term (current) use of antibiotics; Z79.891 Long term (current) use of opiate analgesic; Z79.51 Long term (current) use of inhaled steroids; Z79.899 Other long term (current) drug therapy; Z78.1 Physical restraint status

== ENCOUNTER 2016-10-22 09:20 | Outpatient (CLI) | payer MEDICARE, OTHER | END 2016-10-22 09:21 | disposition home or self-care (01) | DX: K63.1 Perforation of intestine (nontraumatic) (principal) ==

== ENCOUNTER 2017-01-31 11:52 | Inpatient (IN) | payer MEDICARE, OTHER ==
[2017-01-31 12:47] LABS: BASOPHILS # (AUTO) 0.1 10^3/uL (0.0-0.1); BASOPHILS % (AUTO) 0.3 %; EOSINOPHILS % (AUTO) 0.3 %; HCT - HEMATOCRIT 47.8 % (42.0-52.0); HGB - HEMOGLOBIN 15.5 g/dL (14.0-18.0); LYMPHOCYTES # (AUTO) 0.7 10^3/uL (1.5-3.5); LYMPHOCYTES % (AUTO) 4.6 %; MEAN CORPUSCULAR HEMOGLOBIN 27.4 pg (27.0-31.0); MEAN CORPUSCULAR HGB CONC 32.5 g/dL (32.0-36.0); MEAN CORPUSCULAR VOLUME 84.4 fL (80.0-94.0); MEAN PLATELET VOLUME 7.9 fL (7.4-11.4); MONOCYTES # (AUTO) 0.7 10^3/uL (0.0-1.0); MONOCYTES % (AUTO) 4.5 %; NEUTROPHILS % (AUTO) 90.3 %; RED BLOOD COUNT 5.67 10^6/uL (4.70-6.10); RED CELL DISTRIBUTION WIDTH 14.9 % (12.0-15.0); UNCORRECTED WHITE BLOOD COUNT 15.5 x10^3/uL; WHITE BLOOD COUNT 15.5 x10^3/uL (4.8-10.8)
[2017-01-31 13:02] LABS: ALBUMIN/GLOBULIN RATIO 1.2 (1.0-2.2); BILIRUBIN,TOTAL 1.4 mg/dL (0.2-1.0); CALCIUM 9.7 mg/dL (8.5-10.3); CREATININE 0.9 mg/dL (0.6-1.2); POTASSIUM 3.8 mmol/L (3.5-5.0); TOTAL PROTEIN 8.4 g/dL (6.7-8.2)
--- NOTE | 2017-01-31 13:27 | ED Physician Documentation ---
PD HPI ABD PAIN - Stated complaint Stated Complaint: ABD PX - Chief complaint Chief Complaint: Abd Pain - History obtained from History obtained from: Patient - History of Present Illness Timing - onset: Yesterday Timing - details: Gradual onset, Still present Quality: Cramping, Aching, Pain Location: Periumbilical, Other (upper abdomen) Radiation: No: Chest, Lower back Improved by: Vomiting. No: Eating Worsened by: Eating Associated symptoms: Nausea, Vomiting (twice). No: Fever, Hematemesis, Diarrhea , Constipation (last BM yeserday), Melena Recently seen: Surgery (September done here at [facility], for diverticular adhesions and bowel obstruction and had partial small bowel resection. Had been healing okay. Otherwise had normal diet recently.) Review of Systems Constitutional: denies: Fever, Chills Nose: denies: Rhinorrhea / runny nose, Congestion Throat: denies: Sore throat Respiratory: reports: Dyspnea (chronic, at baseline), Cough (chronic), Wheezing. denies: Hemoptysis GI: reports: Abdominal Pain, Abdominal Swelling, Nausea, Vomiting. denies: Diarrhea : denies: Dysuria, Frequency Neurologic: denies: Generalized weakness, Near syncope Endocrine: denies: Weight loss Immunocompromised: denies: Immunocompromised PD PAST MEDICAL HISTORY - Past Medical History Past Medical History: Yes Cardiovascular: None Respiratory: COPD (home oxygen and nebulizers; chronic cough and wheezing. ) Neuro: None Endocrine/Autoimmune: None GI: GERD : None HEENT: Chronic vision loss Psych: None Musculoskeletal: None Derm: None - Past Surgical History Past Surgical History: Yes General: Cholecystectomy - Present Medications Home Medications: Ambulatory Orders Medication Instructions Recorded Confirmed Albuterol [Proventil Hfa] 2 puffs INH Q4H PRN 12/18/12 01/31/17 Tiotropium [Spiriva] 1 puffs INH DAILY 12/18/12 01/31/17 Fluticasone/Salmeterol [Advair 1 puffs INH BID 10/14/15 01/31/17 500-50 Diskus] Albuterol 2.5 mg INH RTQ4H PRN 09/15/16 01/31/17 Fluticasone [Flonase] 2 sprays BHUPINDER BID 09/15/16 01/31/17 Guaifenesin [Guaifenesin ER] 600 mg PO Q12H PRN 09/15/16 01/31/17 Acetaminophen [Tylenol] 650 mg PO Q4HR PRN #0 tablet 10/02/16 01/31/17 Azithromycin 250 mg PO MOWEFR 01/31/17 01/31/17 Omeprazole [PriLOSEC] 20 mg PO QDAC 01/31/17 01/31/17 Trilogy 1 tab PO DAILY 01/31/17 01/31/17 - Allergies Allergies/Adverse Reactions: Allergies Allergy/AdvReac Type Severity Reaction Status Date / Time penicillin G Allergy Unknown Rash Verified 01/31/17 12:02 - Social History Does the pt smoke?: Yes Smoking Status: Current every day smoker Does the pt drink ETOH?: No Does the pt have substance abuse?: No - Immunizations Immunizations are current?: No - POLST Patient has POLST: No PD ED PE NORMAL - Vitals Vital signs reviewed: Yes - General General: Alert and oriented X 3, No acute distress, Well developed/nourished - HEENT HEENT: Atraumatic, PERRL (nonicteric), Ears normal, Pharynx benign - Neck Neck: Supple, no meningeal sign, No adenopathy - Cardiac Cardiac: RRR, No murmur - Respiratory Respiratory: No: Clear bilaterally (diffuse wheezing without wet sounds. ) - Abdomen Abdomen: Soft, No organomegaly, Other (mild distendsion upper abd with increased bowel sounds. Tender upper to mid abdomen without guarding nor percussion tenderness. Not tender lower abd. ) - Male Male : Deferred - Rectal Rectal: Deferred - Back Back: No CVA TTP - Derm Derm: Normal color, Warm and dry - Extremities Extremities: Normal ROM s pain, No edema, No calf tenderness / cord - Neuro Neuro: Alert and oriented X 3, No motor deficit, Normal speech Results - Vitals Vitals: Vital Signs - 24 hr 01/31/17 01/31/17 01/31/17 11:59 13:30 14:21 Temperature 36.8 C Heart Rate 101 H 90 92 Respiratory 20 18 18 Rate Blood Pressure 155/100 H 135/78 H O2 Saturation 90 L 96 01/31/17 15:00 Temperature Heart Rate 90 Respiratory 18 Rate Blood Pressure 134/75 H O2 Saturation 94 Oxygen O2 Source [With Activity] 11L via oxymizer O2 Source [Without Activity] Oxymizer O2 Source Nasal cannula - Labs Labs: Laboratory Tests 01/31/17 01/31/17 01/31/17 12:35 12:35 13:55 WBC 15.5 H RBC 5.67 Hgb 15.5 Hct 47.8 MCV 84.4 MCH 27.4 MCHC 32.5 RDW 14.9 Plt Count 249 MPV 7.9 Neut # 14.0 H Lymph # 0.7 L [place] # 0.7 Eos # 0.0 Baso # 0.1 Absolute Nucleated RBC 0.01 Nucleated RBCs 0.0 Sodium 142 Potassium 3.8 Chloride 101 Carbon Dioxide 32 Anion Gap 9.0 BUN 15 Creatinine 0.9 Estimated GFR (MDRD) 82 L Glucose 151 H Lactic Acid Calcium 9.7 Magnesium 1.9 Total Bilirubin 1.4 H AST 24 ALT 24 Alkaline Phosphatase 86 Total Protein 8.4 H Albumin 4.5 Globulin 4.0 Albumin/Globulin Ratio 1.2 Lipase 22 01/31/17 14:05 WBC RBC Hgb Hct MCV MCH MCHC RDW Plt Count MPV Neut # Lymph # [place] # Eos # Baso # Absolute Nucleated RBC Nucleated RBCs Sodium Potassium Chloride Carbon Dioxide Anion Gap BUN Creatinine Estimated GFR (MDRD) Glucose Lactic Acid 0.8 Calcium Magnesium Total Bilirubin AST ALT Alkaline Phosphatase Total Protein Albumin Globulin Albumin/Globulin Ratio Lipase - Rads (name of study) abd CT Radiology: Prelim report reviewed (partial small bowel obstruction with transition at prior anastomosis. some omental dedma. Diverticulosis without obvious -itis. No abscess nor fluid collection. ) PD MEDICAL DECISION MAKING - ED course Complexity details: considered differential (partial SBO with transition at anastomosis site. Some omental edema. Elevated WBC but normal lactate. Presume medical treatment initially, will consult Janee, dry wall installations mechanic. ), d/w patient, d/ w window covering sales consultant (Dr. Weller, then hospitalist. ) Departure - Departure Disposition: 66 [facility] DC/Xfer Clinical Impression: Partial small bowel obstruction, Severe chronic obstructive pulmonary disease Abdominal pain Qualifiers: Abdominal location: upper abdomen, unspecified Qualified Code(s): R10.10 - Upper abdominal pain, unspecified Condition: Stable Record reviewed to determine appropriate education?: Yes
[2017-01-31] MEDS ORDERED: HYDROmorphone 1 MG/ML SYRINGE IVP STA (13:55)
[2017-01-31] MEDS ORDERED: ONDANSETRON 4 MG/2 ML VIAL IVP STA (13:55)
[2017-01-31] MEDS ORDERED: IPRATROPIUM/ALBUTEROL 3 ML NEB INH STA (13:56)
[2017-01-31] MEDS ORDERED: IPRATROPIUM/ALBUTEROL 3 ML NEB INH ONE (14:09)
[2017-01-31] MEDS ORDERED: HYDROmorphone 1 MG/ML SYRINGE ONE (14:10)
[2017-01-31] MEDS ORDERED: ONDANSETRON 4 MG/2 ML VIAL ONE (14:10)
[2017-01-31] MEDS ORDERED: IOPAMIDOL-300 100 ML VIAL IVP ONE (14:44)
--- NOTE | 2017-01-31 15:15 | CT Preliminary Report ---
Exam: CT Abdomen/Pelvis W/ IMPRESSION: 1. Partial small bowel obstruction mid small bowel, transition point at the anastomotic site subjacen t to the umbilicus. 2. Colonic diverticulosis. 3. Small amount of edema or fibrosis anterior lateral left omentum. 4. No abscess nor focal fluid collections. 5. Left nephrolithiasis. 6. Right posterior lung base infiltrate. [facility] SITE ID: [id number]
--- NOTE | 2017-01-31 15:31 | CT Report ---
EXAM: CT ABDOMEN AND PELVIS EXAM DATE: 01/31/2017 02:52 PM. CLINICAL HISTORY: Abdominal pain since yesterday, worsening, mid/upper abdomen. COMPARISONS: 09/27/2016. TECHNIQUE: Routine helical CT imaging was performed through the abdomen and pelvis. IV contrast: 100 mL Isovue-300. Enteric contrast: No. Reconstructions: Coronal and sagittal. In accordance with CT protocol optimization, one or more of the following dose reduction techniques w ere utilized for this exam: automated exposure control, adjustment of mA and/or KV based on patient s ize, or use of iterative reconstructive technique. FINDINGS: Lung Bases: Segmental reticular nodular infiltrate posterior basilar segment right lower lobe. Liver: Normal. No masses. Gallbladder/Bile Ducts: Cholecystectomy. No biliary duct dilatation. Spleen: Normal. Pancreas: Normal. Adrenal Glands: Normal. Kidneys: No hydronephrosis. Several 2 cm and smaller renal cysts bilaterally. 2 mm stone left mid charlee al calyx. Peritoneal Cavity/Bowel: Interval removal of the percutaneous drains and resolution of the postoperat luann omental, mesenteric and subcutaneous edema at the infraumbilical operative site. Interval development of moderate dilatation proximal half of the small bowel measuring 3.6 cm in diam eter, without bowel wall thickening. Transition point is at the level of the sutures subjacent to the anterior ventral wall, level of the umbilicus, axial image 48, sagittal image 43. Small bowel distal to this region is very small in caliber. Colon is of normal caliber. Multiple diverticuli. No free air nor free fluid. Small amount of stable linear omental stranding anterior left lateral region. No focal fluid collecti ons. The appendix is well visualized and normal. Pelvic Organs: Normal. The bladder and visualized pelvic organs are within normal limits. Vasculature: Stable 3.2 cm infrarenal abdominal aortic aneurysm over 5 cm length. Bones: No significant abnormality. Other: None. IMPRESSION: 1. Partial small bowel obstruction mid small bowel, transition point at the anastomotic site subjacen t to the umbilicus. 2. Colonic diverticulosis. 3. Small amount of edema or fibrosis anterior lateral left omentum. 4. No abscess nor focal fluid collections. 5. Left nephrolithiasis. 6. Right posterior lung base infiltrate. [facility] Referring Provider Line: [phone] SITE ID: [id number]
[2017-01-31] MEDS ORDERED: cefTRIAXone 1 GM in SODIUM CHLORIDE 0.9% MINIBAG 100 ML IV STA (15:34)
[2017-01-31] MEDS ORDERED: cefTRIAXone 1 GM VIAL ONE (15:43)
[2017-01-31] MEDS ORDERED: SODIUM CHLORIDE FLUSH 0.9% 10 ML SYRINGE IVP PRN (16:08)
--- NOTE | 2017-01-31 17:04 | CONSULTATION NOTE ---
Surgery Consult - Admit Date Hospital Admission Date: 01/31/17 - Consult Date Consult Date: 01/31/17 Requesting Provider: ED Attending - Home Meds/Allergies Home Medications: Patient History Medication Instructions Recorded Confirmed Albuterol [Proventil Hfa] 2 puffs INH Q4H PRN 12/18/12 01/31/17 Tiotropium [Spiriva] 1 puffs INH DAILY 12/18/12 01/31/17 Fluticasone/Salmeterol [Advair 1 puffs INH BID 10/14/15 01/31/17 500-50 Diskus] Albuterol 2.5 mg INH RTQ4H PRN 09/15/16 01/31/17 Fluticasone [Flonase] 2 sprays BHUPINDER BID 09/15/16 01/31/17 Guaifenesin [Guaifenesin ER] 600 mg PO Q12H PRN 09/15/16 01/31/17 Azithromycin 1 tab PO DAILY 01/31/17 01/31/17 Omeprazole [PriLOSEC] 20 mg PO QDAC 01/31/17 01/31/17 Trilogy 1 tab PO DAILY 01/31/17 Allergies/Adverse Reactions: Allergies Allergy/AdvReac Type Severity Reaction Status Date / Time penicillin G Allergy Unknown Rash Verified 01/31/17 12:02 - Consultation Note Consultation Note: PD HPI ABD PAIN - Stated complaint Stated Complaint: ABD PX - Chief complaint Chief Complaint: Abd Pain - History obtained from History obtained from: Patient, Spouse - History of Present Illness 76 yo male with pmhx of COPD on O2, s/p Ex lab with small bowel resection & anastomosis 2nd to small bowel obstruction with perforation 09/14/16. Patient has been doing well until around 2 weeks ago when he started feeling tired. As per his , the respiratory therapist who he sees thought he heard some abnormal lung sounds and instructed patient to see customer service analyst which he did not. Patient states difficulty breathing did not worsen, and abdominal pain began yesterday with some nausea without vomiting. last BM yesterday- Loose. reports since previous cholecystectomy stools had been hard and then was placed on stool softeners and had had loose stools since even after he stopped taking the stool softener which was around Sep 2016. He denies fevers, no chills or NS, notes mild SOB. States abdominal pain gone since ER gave pain medication. Previous pain described as constant 8/10 constant B/L mid abdomen x 1 day. No new foods or recent travels. Review of Systems Constitutional: denies: Fever, Chills Nose: denies: Rhinorrhea / runny nose, Congestion Throat: denies: Sore throat Respiratory: reports: Dyspnea (chronic, at baseline), Cough (chronic), Wheezing. denies: Hemoptysis GI: reports: Abdominal Pain, Abdominal Swelling, Nausea, Vomiting. denies: Diarrhea : denies: Dysuria, Frequency Neurologic: denies: Generalized weakness, Near syncope Endocrine: denies: Weight loss Immunocompromised: denies: Immunocompromised PD PAST MEDICAL HISTORY - Past Medical History Past Medical History: Yes Cardiovascular: None Respiratory: COPD (home oxygen and nebulizers; chronic cough and wheezing. ) Neuro: None Endocrine/Autoimmune: None GI: GERD : None HEENT: Chronic vision loss Psych: None Musculoskeletal: None Derm: None - Past Surgical History Past Surgical History: Yes General: Cholecystectomy - Present Medications Home Medications: Ambulatory Orders Medication Instructions Recorded Confirmed Albuterol [Proventil Hfa] 2 puffs INH Q4H PRN 12/18/12 01/31/17 Tiotropium [Spiriva] 1 puffs INH DAILY 12/18/12 01/31/17 Fluticasone/Salmeterol [Advair 50 - 500 mcg INH BID 10/14/15 01/31/17 500-50 Diskus] Albuterol 1 vial INH RTQ4H PRN 09/15/16 01/31/17 Fluticasone [Flonase] 2 sprays BHUPINDER BID 09/15/16 01/31/17 Guaifenesin [Guaifenesin ER] 600 mg PO Q12H PRN 09/15/16 01/31/17 Acetaminophen [Tylenol] 650 mg PO Q4HR PRN #0 tablet 10/02/16 01/31/17 Ipratropium [Atrovent] 0.5 mg INH Q6H PRN #0 neb 10/02/16 01/31/17 Omeprazole [PriLOSEC] 20 mg PO BID #0 10/02/16 01/31/17 Azithromycin 1 tab PO DAILY 01/31/17 01/31/17 Trilogy 1 tab PO DAILY 01/31/17 - Allergies Allergies/Adverse Reactions: Allergies Allergy/AdvReac Type Severity Reaction Status Date / Time penicillin G Allergy Unknown Rash Verified 01/31/17 12:02 - Social History Does the pt smoke?: Yes Smoking Status: Current every day smoker Does the pt drink ETOH?: No Does the pt have substance abuse?: No - Immunizations Immunizations are current?: No - POLST Patient has POLST: No PD ED PE NORMAL - Vitals Vital signs reviewed: Yes - General General: Alert and oriented X 3, NAD - HEENT HEENT: Atraumatic, PERRL (nonicteric), Ears normal, Pharynx benign - Neck Neck: Supple, no meningeal sign, No adenopathy - Cardiac Cardiac: RRR, No murmur - Respiratory Respiratory: No: Clear bilaterally (diffuse wheezing without wet sounds. ) - Abdomen Abdomen: +Bs, Obese, mild distention, NTTP no rebound or guarding - Male Male : No gross deformities - Rectal Rectal: Good tone, Stool in vault, Guaiac negative - Back Back: No CVA TTP - Derm Derm: Normal color, Warm and dry - Extremities Extremities: Normal ROM s pain, No edema, No calf tenderness / cord - Neuro Neuro: Alert and oriented X 3, No motor deficit, Normal speech Results - Vitals Vitals: Vital Signs - 24 hr 01/31/17 01/31/17 11:59 14:21 Temperature 36.8 C Heart Rate 101 H 92 Respiratory 20 18 Rate Blood Pressure 155/100 H O2 Saturation 90 L Oxygen O2 Source [With Activity] 11L via oxymizer O2 Source [Without Activity] Oxymizer O2 Source Nasal cannula - Labs Labs: Laboratory Tests 01/31/17 01/31/17 01/31/17 12:35 12:35 13:55 WBC 15.5 H RBC 5.67 Hgb 15.5 Hct 47.8 MCV 84.4 MCH 27.4 MCHC 32.5 RDW 14.9 Plt Count 249 MPV 7.9 Neut # 14.0 H Lymph # 0.7 L [place] # 0.7 Eos # 0.0 Baso # 0.1 Absolute Nucleated RBC 0.01 Nucleated RBCs 0.0 Sodium 142 Potassium 3.8 Chloride 101 Carbon Dioxide 32 Anion Gap 9.0 BUN 15 Creatinine 0.9 Estimated GFR (MDRD) 82 L Glucose 151 H Lactic Acid Calcium 9.7 Magnesium 1.9 Total Bilirubin 1.4 H AST 24 ALT 24 Alkaline Phosphatase 86 Total Protein 8.4 H Albumin 4.5 Globulin 4.0 Albumin/Globulin Ratio 1.2 Lipase 22 01/31/17 14:05 WBC RBC Hgb Hct MCV MCH MCHC RDW Plt Count MPV Neut # Lymph # [place] # Eos # Baso # Absolute Nucleated RBC Nucleated RBCs Sodium Potassium Chloride Carbon Dioxide Anion Gap BUN Creatinine Estimated GFR (MDRD) Glucose Lactic Acid 0.8 Calcium Magnesium Total Bilirubin AST ALT Alkaline Phosphatase Total Protein Albumin Globulin Albumin/Globulin Ratio Lipase - Rads (name of study) abd CT Radiology: IMPRESSION: 1. Partial small bowel obstruction mid small bowel, transition point at the anastomotic site subjacent to the umbilicus. 2. Colonic diverticulosis. 3. Small amount of edema or fibrosis anterior lateral left omentum. 4. No abscess nor focal fluid collections. 5. Left nephrolithiasis. 6. Right posterior lung base infiltrate. A/p 76 male with multiple medical problems with partial small bowel obstruction and right posterior lung base infiltrate, leukocytosis with normalized lactic acid Recommend NPO IVF NG tube to low wall suction Small Bowel Follow Through with gastrograffin in am. ABX for infiltrate Primary medical team to manage AM labs Surgery will follow
[2017-01-31] MEDS ORDERED: guaiFENesin 600 MG TABLET PO PRN (17:46)
[2017-01-31] MEDS ORDERED: ALBUTEROL NEB 2.5 MG/3 ML INH PRN (17:46)
[2017-01-31] MEDS: SODIUM CHLORIDE FLUSH 0.9% 10 ML SYRINGE IVP SCH (18:25)
[2017-01-31] MEDS: SODIUM CHLORIDE 0.9% 1,000 ML IV SCH (18:25)
[2017-01-31] MEDS: ONDANSETRON 4 MG/2 ML VIAL IVP PRN (18:30)
[2017-01-31] MEDS: IPRATROPIUM 0.2 MG/ML NEB INH SCH (20:40)
[2017-01-31] MEDS: BUDESONIDE 0.5 MG/2 ML NEB INH SCH (20:40)
[2017-01-31] MEDS: FAMOTIDINE 20 MG/50 ML 50 ML IV SCH (20:58)
[2017-01-31] MEDS: FLUTICASONE NASAL SPRAY NAS SCH (20:58)
[2017-01-31] MEDS ORDERED: FAMOTIDINE 20 MG in SODIUM CHLORIDE 0.9% 50 ML IV SCH (21:00)
[2017-01-31] MEDS ORDERED: MIN OIL/DIMETHICON/COCONUT OIL 92 GM TUBE TOP PRN (23:23)
[2017-02-01] MEDS: HYDROmorphone 1 MG/ML SYRINGE IVP PRN ×3 (04:40→17:35)
[2017-02-01] MEDS: ONDANSETRON 4 MG/2 ML VIAL IVP PRN ×3 (04:49→17:41)
[2017-02-01] MEDS: SODIUM CHLORIDE 0.9% 1,000 ML IV SCH ×2 (04:53→17:35)
[2017-02-01] MEDS: SODIUM CHLORIDE FLUSH 0.9% 10 ML SYRINGE IVP SCH ×3 (05:11→23:01)
--- NOTE | 2017-02-01 06:49 | HISTORY & PHYSICAL EXAMINATION ---
DATE OF ADMISSION: 01/31/2017 CHIEF COMPLAINT: Developed abdominal pain yesterday and had nausea without vomiting starting today. HISTORY OF PRESENT ILLNESS: The patient is a 76-year-old male who was inpatient herein 09/2016 and had a small bowel resection and anastomosis due to a bowel obstruction with a perforation. This was on 09/14/2016. He had been discharged home and was doing fine with normal daily loose bowel movements, which he says has been loose ever since Dr. Ray stopped his cholestyramine (status post cholecystectomy). Evidently he had some lower GI bleeding, and in exploring possible causes, evidently cholestyramine can cause this and Dr. Ray advised stopping. His last bowel movement was yesterday, which he describes as explosive, loose material with some solid material, which is his baseline now. As noted, later in day he developed diffuse abdominal pain and nausea today. All he had to eat today was a mandarin orange. He reports that he does continue to have flatus, although he has not had a bowel movement today. He had no associated fever, denies rigoberto blood or black stool. He had not had any vomiting until transfer from the ER to the med/surg floor and during the stretcher ride, he did vomit approximately 50 mL of very light brown clear liquid, which he denied was feculent tasting; however, the nurses indicated that it was feculent smelling. In the emergency room, a CT of the abdomen and pelvis showed moderate dilatation in the proximal half of the small bowel, 3.6 cm in diameter with no bowel wall thickening. There is a transition point at the level of suture, adjacent to the anterior ventral wall. The distal bowel is decompressed. There is no free air or free fluid. There is also a small amount of omental stranding that is stable in the left lateral region with no fluid collections. He had a mild leukocytosis with a white count of 15.5 . In the emergency room, he was nontoxic appearing with stable vital signs with a heart rate near 90 and systolic blood pressure actually elevated at 155/100. The patient is admitted to the floor for management of the small bowel obstruction, initially to be conservative management with n.p.o. and ideally nasogastric tube. At this time, the patient is very resistant to a nasogastric tube, so Dr. Weller has ordered a small bowel through tomorrow's Gastrografin. PAST MEDICAL HISTORY Includes 1. Advanced COPD with most recent FEV-1 in our system of 3.06, which is 38% predicted. FEV/FVC 35%. This was done in 2012. I do not know if there are more recent ones. He is home O2 6 liters and has been increased from 5 liters since the time of his abdominal surgery in 09/2016. 2. He is on home triology 100 at night for the advanced COPD with hypercarbia. 3. Chronic tobacco use. He continues with at least 1 pack per day WHILE wearing 02 4. Gastroesophageal reflux disease. 5. History of erythrocytosis and leukocytosis, RAMONA-2 negative. SURGICAL HISTORY 1. Cholecystectomy. 2. Small bowel resection. 3. Lysis of adhesions as above in 09/2016. ALLERGIES 1. HE IS ALLERGIC TO PENICILLIN. 2. HE ALSO REPORTS HAVING BEEN TOLD BY DR. RAY TO "NEVER TAKE ASPIRIN," ALTHOUGH HE HAS HAD NO UPPER GI BLEEDS. HABITS: He smokes at least a pack a day. He has been smoking since he was 11. He never drank alcohol ever despite having been in the , in the [place], for many years. 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 He was born in [place]. He has been to his for nearly 50 years and has lived on [facility] for over 30 years. He has a son in [place]. There is no history of illicit use. FAMILY HISTORY: His parents, both mom and dad, in their 80s. Mother had ovarian cancer and father reportedly had stomach cancer. His son has type 1 diabetes and he has no siblings. REVIEW OF SYSTEMS GENERAL: He reports an unintentional weight loss of approximately 30 pounds over an unclear time period, although he is still very klein. No fever, night sweats, or lymphadenopathy. HEAD, EYES, EARS, NOSE, THROAT: He does have trifocals at home. Denies any vision changes. CARDIOVASCULAR: He denies any chest pain or near syncope. No edema or orthopnea and he denies any history of vascular disease despite his long history of smoking. RESPIRATORY: Prolonged smoking history as above. He denies any change in his chronic cough. He denies having a daily sputum production. What he does cough, he swallows. When he has had exacerbations in the past, he has had change in his sputum color and amount. He denies any increased wheezing or change in his baseline dyspnea. Per his , he ambulates only short distances. He has been on prophylactic azithromycin per Dr. Barber of Pulmonary. He evidently is supposed to be only taking it Saturday, Saturday, and Saturday; however, he has been taking it daily with the reporting he feels better taking it daily, although it was not prescribed that way. GASTROINTESTINAL: As per the HPI. GENITOURINARY: He denies any dysuria, frequency, or hesitancy. MUSCULOSKELETAL: He reports having some paresthesias in his left lower extremity ever since being in an ICU bed for approximately 10 days last September or October. There have been no associated falls or stumbles. SKIN: He denies any rash. NEUROLOGICAL: No weakness, discoordination, or paresthesia other than that mentioned above in the left lower extremity. No memory confusion or loss of consciousness. PSYCHIATRIC: Denies any mood disturbance. ENDOCRINE: No polyuria or polydipsia. HEME: No easy bruising or bleeding. PHYSICAL EXAMINATION VITAL SIGNS: In the emergency room, afebrile at 36.8, heart rate at noon of 101 , blood pressure 135/100, respiratory rate 20 with an oxygen saturation of 90% on 5 liters of nasal canula. On presentation to the floor, 37.2, heart rate 94, blood pressure 180/103. That is shortly after vomiting. Respiratory rate 24, oxygen saturation 94% on 6 liters. GENERAL: The patient was initially seen being wheeled down the hallway on a stretcher requesting a bag to vomit into and he was seen vomiting approximately 50-75 mL of clear light brown fluid. He was in no acute distress. Once he was seen in his room, he was able to stand up for a weight with no acute distress. He is a short, balding older gentleman who is quite animated. His is at bedside. HEAD, EYES, EARS, NOSE, THROAT: His pupils are equal. Extraocular movements are intact. His sclerae are anicteric. His oral mucosa is slightly dry, particularly his tongue. He does have both upper and lower dentures. NECK: Supple. There is no appreciable lymphadenopathy. His carotids bilaterally are +2 with no appreciable bruits. LUNGS: His respirations at rest are unlabored at 6 liters nasal canula. There is no audible wheezing. His breath sounds are quite distant to auscultation with no appreciable crackles or rhonchi. ABDOMEN: His abdomen is very generous and rounded. When asked if he feels distended or if this is "his normal belly," he laughs and says he has actually lost weight, but denies any distention. He has rare, but occasional bowel sounds. He is nontender to palpation. Emesis is as noted above. EXTREMITIES: Notable for no edema. Peripheral pulses including dorsalis pedis bilaterally are +2. SKIN: Warm and dry. DIAGNOSTIC IMAGING STUDIES CT of the abdomen on 01/31/2017: 1. Partial small bowel obstruction, mid small bowel with transition point, anastomotic site, subadjacent to the umbilicus. 2. Colonic diverticulosis. 3. A small amount of edema or fibrosis anterolateral omentum. 4. No abscess. 5. Left nephrolithiasis. Note, the nephrolithiasis is a 2 mm stone in the left mid renal calyx. 6. A right posterior lung base infiltrate. There is no EKG done today. Prior EKG from 09/2016 was normal sinus tach at the time with a left anterior fascicular block. An echocardiogram from 10/2015 shows normal LV size and function with an EF of 60-65%, grade 1 diastolic dysfunction. No wall motion abnormalities. Trace mitral regurg, trace to mild tricuspid regurg. DIAGNOSTIC LABORATORY STUDIES TODAY: White count 15.5, hemoglobin 15.5, hematocrit 47.8, platelets 249,000. Chemistry: Sodium 142, potassium 3.8, chloride 101, bicarb 32, BUN 15, creatinine 0.9, glucose 151, lactate 0.8, mag 1.9. Total bili was 1.4, AST 24, ALT 24, alkaline phosphatase 86. Total protein is slightly elevated at 8.4. Albumin is 4.5. No UA was done. ASSESSMENT AND PLAN 1. partial bowel obstruction, very close to the prior anastomotic site. This has already been evaluated by Dr. Wleler. Initially, he is being managed conservatively with bowel rest and ideally a NG-tube, which he is currently refusing, and he will have a small bowel followthrough with Gastrografin tomorrow. He will receive IV fluid overnight and will have serial abdominal exams. 2. Advanced chronic obstructive pulmonary disease. He will continue on his home flow of 6 liters nasal canula. He is on prophylactic azithromycin, which he has been taking daily, but is supposed to be Saturday, Saturday, Saturday. We will revert to the Saturday, Saturday, Saturday dosing, which the pharmacist has confirmed and reconciled with his lead sustainability specialist. He will continue on his home triology and his is bringing that in. At home, he is on Spiriva and he will be on Atrovent nebs scheduled here with nena Zhang. At this time, he does not have change in his respiratory status nor in his sputum production. Has no fevers or no changes suggestive of a COPD exacerbation or pneumonia although the chest xray suggests an infiltrate. He will be watched closely; however, his condition does not warrant antibiotics at this time. I suspect that his leukocytosis is related to problem #1, small bowel obstruction. 3. Leukocytosis. As above. Suspect this is related to small bowel obstruction. We will recheck a CBC in the morning. 4. Gastroesophageal reflux disease. He will continue on proton pump inhibitor with our formulary being Protonix here rather than omeprazole. 5. Chronic tobacco use. The patient is well aware of the risks of smoking with oxygen on, as well as of the progressive changes in his pulmonary status with continued smoking. However, he elects to continue doing this. 6. COR STATUS. AT THIS TIME, HE IS STILL A FULL COR AND WOULD LIKE A TRIAL OF INTUBATION, BUT WOULD NOT "WANT TO BE ON IT FOR LONG-TERM." 7. Deep venous thrombosis prophylaxis. He will be on SCDs, as he has had a history of a lower GI bleed in the past. JOB #: [id number] EXT JOB #:[id number] MTDKenneth
[2017-02-01] MEDS: BUDESONIDE 0.5 MG/2 ML NEB INH SCH ×2 (07:50→20:20)
[2017-02-01] MEDS: IPRATROPIUM/ALBUTEROL 3 ML NEB INH PRN (07:50)
[2017-02-01 08:00] LABS: HGB - HEMOGLOBIN 14.4 g/dL (14.0-18.0); MEAN CORPUSCULAR HEMOGLOBIN 27.4 pg (27.0-31.0); MEAN CORPUSCULAR VOLUME 85.8 fL (80.0-94.0); MEAN PLATELET VOLUME 8.2 fL (7.4-11.4); RED BLOOD COUNT 5.25 10^6/uL (4.70-6.10); RED CELL DISTRIBUTION WIDTH 14.7 % (12.0-15.0); WHITE BLOOD COUNT 18.3 x10^3/uL (4.8-10.8)
[2017-02-01 08:01] LABS: CREATININE 0.8 mg/dL (0.6-1.2); POTASSIUM 4.4 mmol/L (3.5-5.0)
[2017-02-01] MEDS ORDERED: TRILOGY PO SCH (09:00)
[2017-02-01] MEDS ORDERED: AZITHROMYCIN 250 MG TABLET PO SCH (09:00)
[2017-02-01] MEDS ORDERED: POLYETHYLENE GLYCOL 3350 17 GM PACKET PO SCH (09:00)
[2017-02-01] MEDS ORDERED: ENOXAPARIN 30 MG/0.3 ML SYRINGE SUBQ SCH (09:00)
[2017-02-01] MEDS: FAMOTIDINE 20 MG/50 ML 50 ML IV SCH ×2 (09:17→20:47)
[2017-02-01] MEDS: ENOXAPARIN 40 MG/0.4 ML SYRINGE SUBQ SCH (09:19)
--- NOTE | 2017-02-01 09:28 | PROVIDER PROGRESS NOTE ---
Subjective - Prog Note Date Prog Note Date: 02/01/17 Prog Note Time: 09:23 - Subjective Subjective: Denies any further emesis overnight (declined NG tube last pm after admit) reports flatus, no stool overnight No abdominal pain, does not feel distended "I could use a neb, but not urgently (when I mentioned he sounded alittle wheezy ) Asking if Dr Holbrook will see him Current Medications - Current Medications Current Medications: Active Medications Generic Name Dose Route Start Last Admin Trade Name Freq PRN Reason Stop Dose Admin Albuterol 2.5 mg 01/31/17 17:46 INH Q4H PRN Wheezing Albuterol/Ipratropium 3 ml 01/31/17 18:10 02/01/17 07:50 Duoneb INH 3 ml Q4HR PRN Administration Wheezing Budesonide 0.5 mg 01/31/17 19:00 02/01/17 07:50 Pulmicort INH 0.5 mg RTBID ROM Administration Enoxaparin Sodium 40 mg 02/01/17 09:00 02/01/17 09:19 Lovenox SUBQ 40 mg DAILY ROM Administration Fluticasone Propionate 2 sprays 01/31/17 21:00 01/31/17 20:58 Flonase BHUPINDER Not Given QPM ROM Hydromorphone HCl 1 mg 01/31/17 22:42 02/01/17 04:40 Dilaudid Inj IVP 1 mg Q4H PRN Administration PAIN Sodium Chloride 1,000 mls @ 100 mls/hr 01/31/17 16:11 02/01/17 04:53 Normal Saline 0.9% IV 100 mls/hr .Q10H ROM Administration Famotidine 50 mls @ 100 mls/hr 01/31/17 21:00 02/01/17 09:17 Pepcid 20 Mg/50 Ml IV 100 mls/hr Q12H ROM Administration Azithromycin 250 mg/ Sodium 250 mls @ 83.33 mls/hr 02/01/17 09:00 Chloride IV DAILY ROM Ipratropium [place] 0.5 mg 01/31/17 19:00 01/31/17 20:40 Atrovent INH Not Given RTQID ROM Mineral Oil 1 applic 01/31/17 23:23 Cavilon TOP PRN PRN Skin Care Nicotine 1 patch 02/01/17 19:00 Nicoderm TOP DAILY ROM Ondansetron HCl 4 mg 01/31/17 16:12 02/01/17 04:49 Zofran Inj IVP 4 mg Q6HR PRN Administration Nausea / Vomiting Sodium Chloride 10 ml 01/31/17 16:08 Normal Saline Flush 0.9% IVP PRN PRN NEEDED PER PROVIDER ORDERS Sodium Chloride 10 ml 01/31/17 22:00 02/01/17 05:11 Normal Saline Flush 0.9% IVP Not Given Q8HR ROM Albuterol [Proventil Hfa] 2 puffs INH Q4H PRN 12/18/12 Tiotropium [Spiriva] 1 puffs INH DAILY 12/18/12 Fluticasone/Salmeterol [Advair 500-50 Diskus] 1 puffs INH BID 10/14/15 Albuterol 2.5 mg INH RTQ4H PRN 09/15/16 Fluticasone [Flonase] 2 sprays BHUPINDER QPM 09/15/16 Guaifenesin [Guaifenesin ER] 600 mg PO Q12H PRN 09/15/16 Azithromycin 250 mg PO MOWEFR 01/31/17 Omeprazole [PriLOSEC] 20 mg PO QDAC 01/31/17 Trilogy 1 tab PO DAILY 01/31/17 Objective - Vital Signs/Intake & Output Reviewed Vital Signs: Yes Vital Signs: Vital Signs x48h Temp Pulse Resp BP Pulse Ox 02/01/17 08:00 36.6 C 92 20 137/82 H 93 02/01/17 04:52 37.1 C 101 H 20 153/82 H 93 Intake & Output: Intake & Output 01/29/17 01/30/17 01/31/17 02/01/17 23:59 23:59 23:59 23:59 Intake Total 795 Output Total 650 225 Balance -650 570 - Objective General Appearance: positive: No acute distress, Alert, Other (doesnt really remember me from yesterday,) Respiratory: positive: No respiratory distress, Breath sounds nml (trilogy machine (from home) at bedside) Cardiovascular: positive: Regular rate & rhythm, No murmur Abdomen: positive: Other (obese protuberant abdomen but not taut , not distended (per patient), infrequent but positive bowel sounds, no high pitched rushing, no pain on palpation.) Skin: positive: Warm, Dry Neurologic/Psychiatric: positive: Oriented x3 (although he doesnt much remember me from yesterday) - Lab Results Fish Bones: 02/01/17 07:35 02/01/17 07:35 Other Labs: Lab Results x24hrs 02/01/17 02/01/17 Range/Units 07:35 07:35 WBC 18.3 H (4.8-10.8) x10^3/uL RBC 5.25 (4.70-6.10) 10^6/uL Hgb 14.4 (14.0-18.0) g/dL Hct 45.0 (42.0-52.0) % MCV 85.8 (80.0-94.0) fL MCH 27.4 (27.0-31.0) pg MCHC 32.0 (32.0-36.0) g/dL RDW 14.7 (12.0-15.0) % Plt Count 239 (130-450) 10^3/uL MPV 8.2 (7.4-11.4) fL Sodium 141 (135-145) mmol/L Potassium 4.4 (3.5-5.0) mmol/L Chloride 102 (101-111) mmol/L Carbon Dioxide 32 (21-32) mmol/L Anion Gap 7.0 (6-13) BUN 21 H (6-20) mg/dL Creatinine 0.8 (0.6-1.2) mg/dL Estimated GFR (MDRD) 94 (>89) Glucose 133 H (70-100) mg/dL Calcium 9.0 (8.5-10.3) mg/dL Assessment/Plan - Problem List (1) Partial small bowel obstruction Impression: After discussion with Dr. Batista/ general surgery, patient did agree to NG tube , ~ 300 cc output initially followed by gastrograffin Small bowel follow thru still in progress Dr. Batista following (2) Severe chronic obstructive pulmonary disease Impression: stable, continues home Trilogy (chronic hypoxemic and hypercarbic respiratory failure ) continue home flow 02 6liters continue M/W/F azithromycin (NOT daily as he was taking; [facility] and re:long half life etc. and Dr Montesinos recs Do NOT suspect COPD exacerbation/ nor pneumonia at this time (3) Leukocytosis Impression: slightly increased today still supsect r/t bowel process (little improvement overnight since refused NG ) rather than pneumonia or COPD exacerbation recheck in am now that had definitive treatament for #1 (4) Tobacco use Impression: smokes 1-1.5 ppd doing fine with 14 mg nicoderm patch well aware he shouldnt be smoking (5) GERD (gastroesophageal reflux disease) Impression: stable on PPI (on omeprazole at home) (6) DVT prophylaxis Impression: SCD's (reports hx of GI Bleed,was told not to be on ASA(not entirely clear on this as he says it was lower abdomen)
[2017-02-01] MEDS: AZITHROMYCIN INJ 250 MG in SODIUM CHLORIDE 0.9% 250 ML IV SCH (09:47)
--- NOTE | 2017-02-01 12:30 | PROVIDER PROGRESS NOTE ---
Subjective - General Admit Date: 01/31/17 Procedure Date: 09/14/16 Post Op Days: 140 - Review of Systems General: positive: Malaise Pulmonary: positive: No symptoms Cardiovascular: positive: No symptoms Gastrointestinal: positive: Nausea, Abdominal pain, Flatus, Other (burping, but also passing flatus; refused NG and now has nausea unrelieved by meds, but no emesis; also starting to have some mild abdominal pain.). negative: Vomiting Objective - Patient Data Reviewed Vital Signs: Yes Vital Signs: Vital Signs x48h Temp Pulse Pulse Resp BP Pulse Ox 02/01/17 08:00 36.6 C 92 20 137/82 H 93 02/01/17 07:50 92 16 02/01/17 04:52 37.1 C 101 H 20 153/82 H 93 Weight: Weight 01/30/17 01/31/17 02/01/17 23:59 23:59 23:59 Weight (kg) 90 kg Intake & Output: Intake and Output Totals x24h 01/30/17 01/31/17 02/01/17 23:59 23:59 23:59 Intake Total 795 Output Total 650 425 Balance -650 370 - Lab Results Lab Results: 02/01/17 07:35 02/01/17 07:35 Other Lab Results: Lab Results x24hrs 02/01/17 02/01/17 Range/Units 07:35 07:35 WBC 18.3 H (4.8-10.8) x10^3/uL RBC 5.25 (4.70-6.10) 10^6/uL Hgb 14.4 (14.0-18.0) g/dL Hct 45.0 (42.0-52.0) % MCV 85.8 (80.0-94.0) fL MCH 27.4 (27.0-31.0) pg MCHC 32.0 (32.0-36.0) g/dL RDW 14.7 (12.0-15.0) % Plt Count 239 (130-450) 10^3/uL MPV 8.2 (7.4-11.4) fL Sodium 141 (135-145) mmol/L Potassium 4.4 (3.5-5.0) mmol/L Chloride 102 (101-111) mmol/L Carbon Dioxide 32 (21-32) mmol/L Anion Gap 7.0 (6-13) BUN 21 H (6-20) mg/dL Creatinine 0.8 (0.6-1.2) mg/dL Estimated GFR (MDRD) 94 (>89) Glucose 133 H (70-100) mg/dL Calcium 9.0 (8.5-10.3) mg/dL - Current Medications Current Medications: Current Medications Generic Name Dose Route Start Last Admin Trade Name Freq PRN Reason Stop Dose Admin Albuterol/Ipratropium 3 ml 01/31/17 18:10 02/01/17 07:50 Duoneb INH 3 ml Q4HR PRN Administration Wheezing Budesonide 0.5 mg 01/31/17 19:00 02/01/17 07:50 Pulmicort INH 0.5 mg RTBID ROM Administration Enoxaparin Sodium 40 mg 02/01/17 09:00 02/01/17 09:19 Lovenox SUBQ 40 mg DAILY ROM Administration Fluticasone Propionate 2 sprays 01/31/17 21:00 01/31/17 20:58 Flonase BHUPINDER Not Given QPM ROM Hydromorphone HCl 1 mg 01/31/17 22:42 02/01/17 10:27 Dilaudid Inj IVP 1 mg Q4H PRN Administration PAIN Sodium Chloride 1,000 mls @ 100 mls/hr 01/31/17 16:11 02/01/17 04:53 Normal Saline 0.9% IV 100 mls/hr .Q10H ROM Administration Famotidine 50 mls @ 100 mls/hr 01/31/17 21:00 02/01/17 09:17 Pepcid 20 Mg/50 Ml IV 100 mls/hr Q12H ROM Administration Azithromycin 250 mg/ Sodium 250 mls @ 83.33 mls/hr 02/01/17 09:00 02/01/17 09: 47 Chloride IV 83.33 mls/hr DAILY ROM Administration Ipratropium [place] 0.5 mg 01/31/17 19:00 01/31/17 20:40 Atrovent INH Not Given RTQID ROM Ondansetron HCl 4 mg 01/31/17 16:12 02/01/17 10:27 Zofran Inj IVP 4 mg Q6HR PRN Administration Nausea / Vomiting Sodium Chloride 10 ml 01/31/17 16:08 02/01/17 10:28 Normal Saline Flush 0.9% IVP 10 ml PRN PRN Administration NEEDED PER PROVIDER ORDERS Sodium Chloride 10 ml 01/31/17 22:00 02/01/17 05:11 Normal Saline Flush 0.9% IVP Not Given Q8HR ROM - Physical Exam General Appearance: positive: No acute distress Abdomen: positive: Tenderness (mild diffuse tenderness, no peritoneal signs; obese, appears somewhat distended although he states not much different from normal;), Abnml bowel sounds (few faint hypoactive BS). negative: Guarding, Rebound Neurologic/Psychiatric: positive: Oriented x3 Impression/Plan - Problem List Problem List: A/P: SBO After lengthy discussion with him and his , he has agreed to go ahead with NGT placement. Will give him a dose of Ativan before hand. He will then have the gastrograffin SBFT done. I explained to him and his that this is both therapeutic and diagnostic. He should also be ambulating in the halls as much as possible.
[2017-02-01] MEDS ORDERED: PHENOL THROAT SPRAY 177 ML MM PRN (12:44)
[2017-02-01] MEDS ORDERED: LORazepam 2 MG/ML SYRINGE IVP SCH (13:00)
--- NOTE | 2017-02-01 14:41 | XRAY Report ---
UPRIGHT ABDOMEN: 02/01/2017 CLINICAL INDICATION: Nasogastric tube placement. COMPARISON: CT of 01/31/2017. FINDINGS: Frontal view of the lower chest and upper abdomen demonstrates a nasogastric tube terminat ing in the stomach. Linear atelectasis is seen at the bases. Postoperative changes are noted in the u pper abdomen. IMPRESSION: NASOGASTRIC TUBE TERMINATING IN THE STOMACH. JOB #: [id number] EXT JOB #:[id number]
[2017-02-01] MEDS: NICOTINE 14 MG PATCH TOP SCH (18:56)
[2017-02-01] MEDS: IPRATROPIUM 0.2 MG/ML NEB INH SCH ×3 (20:20→22:31)
[2017-02-01] MEDS: FLUTICASONE NASAL SPRAY NAS SCH (20:47)
[2017-02-01] MEDS ORDERED: DIATR MEGLU/DIATRIZOATE SODIUM 120 ML BOTTLE PO ONE (22:16)
--- NOTE | 2017-02-01 22:34 | XRAY Preliminary Report ---
Exam: [place] Small Bowel Follow Through IMPRESSION: High-grade mid small bowel obstruction. These findings were reported to Dr. Castillo at 22:[address] [place] [address] SITE ID: [id number]
--- NOTE | 2017-02-01 22:52 | XRAY Report ---
EXAM: SMALL BOWEL FOLLOW-THROUGH EXAM DATE: 02/01/2017 03:00 PM. CLINICAL HISTORY: Partial small bowel obstruction. COMPARISONS: CT abdomen and pelvis . TECHNIQUE: Routine small bowel follow-through technique. FINDINGS: There is a nasogastric tube with the tip in the proximal stomach. Surgical clips seen in th e right upper quadrant. Gastrografin was given through the nasogastric tube. Reflux of contrast was s een in the esophagus. At 15 minutes, the majority of contrast was still in the proximal stomach with increased reflux of contrast into the esophagus. There appears to be a small hiatal hernia seen on th e 30-minute image. On the 30-minute image, there are multiple proximal small bowel loops which are fi lled with contrast and these are moderately dilated. On the 60-minute image the contrast was still in the stomach and in the dilated small bowel loops in the upper abdomen and left side of the abdomen, appear to progress to the small bowel, only a small amount compared to the prior. At the 120-minute i mage, there is still contrast in the stomach. The contrast had progressed more distally in the small bowel loops with more small bowel loops opacified in the pelvis. On the 360-minute image, there is st ill contrast in the stomach. Multiple moderately dilated small bowel loops are seen in the abdomen an d pelvis more on the left side. This appears similar compared to the 120-minute image without signifi cant progression of contrast. No contrast is seen in the distal small bowel loops. No contrast is see n in the colon. These findings are consistent with high-grade mid small bowel obstruction. The small bowel follow-through was ended after viewing the 360-minute image. IMPRESSION: 1. High-grade mid small bowel obstruction. These findings were reported to Dr. Castillo at 22:24 on 01/05 [facility] Referring Provider Line: [phone] SITE ID: [id number]
[2017-02-02] MEDS: SODIUM CHLORIDE 0.9% 1,000 ML IV SCH ×3 (06:15→22:08)
[2017-02-02] MEDS: SODIUM CHLORIDE FLUSH 0.9% 10 ML SYRINGE IVP SCH ×3 (06:21→20:37)
--- NOTE | 2017-02-02 07:31 | XRAY Preliminary Report ---
Exam: XR Abdomen 2 View IMPRESSION: 1. Dilated small bowel within the left hemiabdomen. This may be due to ileus and/or partial obstructi on. 2. [place] of gas projecting underneath the right hemidiaphragm. I suspect that this is gas within t he right lower lobe outlined by atelectasis. Pneumoperitoneum difficult to exclude with certainty. Fu rther assessment could be considered with a CT abdomen and pelvis. 3. Bibasilar airspace disease, left greater than right. [facility] SITE ID: [id number]
--- NOTE | 2017-02-02 07:34 | XRAY Report ---
EXAM: ABDOMEN RADIOGRAPHY EXAM DATE: 02/02/2017 07:00 AM. CLINICAL HISTORY: Small bowel obstruction . COMPARISON: None. TECHNIQUE: 2 views. A total of 5 exposures are provided for review. FINDINGS: Lung Bases: There is bibasilar airspace disease, left greater than right. Bowel Gas Pattern: Dilated loops of bowel with no within the left lower quadrant. Differential air-fl uid levels are seen. Oral contrast material opacifies the colon and rectum. Free Air: There is collection of gas underneath the right hemidiaphragm. I suspect that this is gas w ithin the right lung base region outlined by atelectasis. However, pneumoperitoneum difficult to excl ude with certainty. Other: Orogastric tube tip projects over the upper stomach. Right upper quadrant clips indicate prio r cholecystectomy. IMPRESSION: 1. Dilated small bowel within the left hemiabdomen. This may be due to ileus and/or partial obstructi on. 2. Dickens of gas projecting underneath the right hemidiaphragm. I suspect that this is gas within t he right lower lobe outlined by atelectasis. Pneumoperitoneum difficult to exclude with certainty. Fu rther assessment could be considered with a CT abdomen and pelvis. 3. Bibasilar airspace disease, left greater than right. [facility] Referring Provider Line: [phone] SITE ID: [id number]
[2017-02-02] MEDS: IPRATROPIUM 0.2 MG/ML NEB INH SCH ×4 (07:55→20:54)
[2017-02-02] MEDS: IPRATROPIUM/ALBUTEROL 3 ML NEB INH PRN ×4 (07:55→20:54)
[2017-02-02] MEDS: BUDESONIDE 0.5 MG/2 ML NEB INH SCH ×2 (07:55→20:54)
[2017-02-02] MEDS: FAMOTIDINE 20 MG/50 ML 50 ML IV SCH ×2 (08:11→20:37)
[2017-02-02] MEDS: NICOTINE 14 MG PATCH TOP SCH (08:27)
[2017-02-02] MEDS: ENOXAPARIN 40 MG/0.4 ML SYRINGE SUBQ SCH (08:27)
--- NOTE | 2017-02-02 08:46 | PROVIDER PROGRESS NOTE ---
Subjective - General Admit Date: 01/31/17 Procedure Date: 09/14/16 Post Op Days: 141 - Review of Systems General: positive: Other (thirsty; feeling much better than yesterday) Pulmonary: positive: No symptoms Cardiovascular: positive: No symptoms Gastrointestinal: positive: Flatus, Other (He had several episodes of emesis during the SBFT, but then had 14 BM's last night; is pain free today and feeling much better. No further emesis after his bowels started to move.). negative: Vomiting Objective - Patient Data Reviewed Vital Signs: Yes Vital Signs: Vital Signs x48h Temp Pulse Pulse Resp BP Pulse Ox 02/02/17 08:04 84 20 02/02/17 07:28 36.9 C 81 16 117/66 94 02/02/17 05:00 37.0 C 85 16 137/83 H 92 02/02/17 01:00 37.3 C 109 H 16 146/92 H 93 Weight: Weight 01/31/17 02/01/17 02/02/17 23:59 23:59 23:59 Weight (kg) 90 kg Intake & Output: Intake and Output Totals x24h 01/31/17 02/01/17 02/02/17 23:59 23:59 23:59 Intake Total 1681 772 Output Total 650 825 850 Balance -650 708 -78 - Lab Results Lab Results: 02/01/17 07:35 02/01/17 07:35 - Imaging Results Radiology Imaging: positive: Final report received (still with some mild dilation and air fluid levels, but now has contrast through to rectum (I agree that the air seen at the R hemidiaphragm is in the lung because pts abdomen is completely benign)) - Current Medications Current Medications: Current Medications Generic Name Dose Route Start Last Admin Trade Name Freq PRN Reason Stop Dose Admin Albuterol/Ipratropium 3 ml 01/31/17 18:10 02/02/17 07:55 Duoneb INH 3 ml Q4HR PRN Administration Wheezing Budesonide 0.5 mg 01/31/17 19:00 02/02/17 07:55 Pulmicort INH 0.5 mg RTBID ROM Administration Enoxaparin Sodium 40 mg 02/01/17 09:00 02/02/17 08:27 Lovenox SUBQ Not Given DAILY ROM Fluticasone Propionate 2 sprays 01/31/17 21:00 02/01/17 20:47 Flonase BHUPINDER 2 sprays QPM ROM Administration Hydromorphone HCl 1 mg 01/31/17 22:42 02/01/17 17:35 Dilaudid Inj IVP 1 mg Q4H PRN Administration PAIN Sodium Chloride 1,000 mls @ 100 mls/hr 01/31/17 16:11 02/02/17 07:44 Normal Saline 0.9% IV Not Given .Q10H ROM Famotidine 50 mls @ 100 mls/hr 01/31/17 21:00 02/02/17 08:11 Pepcid 20 Mg/50 Ml IV 100 mls/hr Q12H ROM Administration Azithromycin 250 mg/ Sodium 250 mls @ 83.33 mls/hr 02/01/17 09:00 02/01/17 09: 47 Chloride IV 83.33 mls/hr DAILY ROM Administration Ipratropium [place] 0.5 mg 01/31/17 19:00 02/02/17 07:55 Atrovent INH Not Given RTQID [facility] Nicotine 1 patch 02/01/17 19:00 02/02/17 08:27 Nicoderm TOP Not Given DAILY [facility] Ondansetron HCl 4 mg 01/31/17 16:12 02/01/17 17:41 Zofran Inj IVP 4 mg Q6HR PRN Administration Nausea / Vomiting Sodium Chloride 10 ml 01/31/17 16:08 02/01/17 10:28 Normal Saline Flush 0.9% IVP 10 ml PRN PRN Administration NEEDED PER PROVIDER ORDERS Sodium Chloride 10 ml 01/31/17 22:00 02/02/17 06:21 Normal Saline Flush 0.9% IVP Not Given Q8HR [facility] - Physical Exam General Appearance: positive: No acute distress, Alert Abdomen: positive: Non-tender (soft, less distended from yesterday; not tender even to deep palpation; bowel sounds improved) Impression/Plan - Problem List Problem List: A/P: Resolving SBO Would continue to decompress today and encourage ambulation in the halls, since there is still some dilation of the bowel on today's xray. D/C NGT tomorrow morning if still doing well and can start clears when NGT is out.
[2017-02-02 08:50] LABS: BASOPHILS # (AUTO) 0.1 10^3/uL (0.0-0.1); BASOPHILS % (AUTO) 0.4 %; EOSINOPHILS % (AUTO) 0.1 %; HCT - HEMATOCRIT 42.3 % (42.0-52.0); HGB - HEMOGLOBIN 13.5 g/dL (14.0-18.0); LYMPHOCYTES # (AUTO) 0.8 10^3/uL (1.5-3.5); LYMPHOCYTES % (AUTO) 6.9 %; MEAN CORPUSCULAR HEMOGLOBIN 27.2 pg (27.0-31.0); MEAN CORPUSCULAR HGB CONC 31.9 g/dL (32.0-36.0); MEAN CORPUSCULAR VOLUME 85.3 fL (80.0-94.0); MEAN PLATELET VOLUME 7.8 fL (7.4-11.4); MONOCYTES # (AUTO) 0.8 10^3/uL (0.0-1.0); MONOCYTES % (AUTO) 6.7 %; NEUTROPHILS # (AUTO) 10.5 10^3/uL (1.5-6.6); NEUTROPHILS % (AUTO) 85.9 %; RED BLOOD COUNT 4.96 10^6/uL (4.70-6.10); RED CELL DISTRIBUTION WIDTH 15.1 % (12.0-15.0); UNCORRECTED WHITE BLOOD COUNT 12.2 x10^3/uL; WHITE BLOOD COUNT 12.2 x10^3/uL (4.8-10.8)
[2017-02-02] MEDS: AZITHROMYCIN INJ 250 MG in SODIUM CHLORIDE 0.9% 250 ML IV SCH (09:09)
--- NOTE | 2017-02-02 13:54 | PROVIDER PROGRESS NOTE ---
Subjective - Prog Note Date Prog Note Date: 02/02/17 Prog Note Time: 08:50 - Subjective Pt reports feeling: Improved Subjective: Patient reports feelin gMUCH better and wanting NGT out and hoping to go home. D/W surgery and want to keep NGT x1 more day, pt agreeable. He reports no nausea. Had 14+ BMs last night. No CP, SOB or fever/chills. Tolerating NG discomfort. Current Medications - Current Medications Current Medications: Current Medications Generic Name Dose Route Start Last Admin Trade Name Freq PRN Reason Stop Dose Admin Albuterol/Ipratropium 3 ml 01/31/17 18:10 02/02/17 11:19 Duoneb INH 3 ml Q4HR PRN Administration Wheezing Budesonide 0.5 mg 01/31/17 19:00 02/02/17 07:55 Pulmicort INH 0.5 mg RTBID ROM Administration Enoxaparin Sodium 40 mg 02/01/17 09:00 02/02/17 08:27 Lovenox SUBQ Not Given DAILY ROM Fluticasone Propionate 2 sprays 01/31/17 21:00 02/01/17 20:47 Flonase BHUPINDER 2 sprays QPM ROM Administration Hydromorphone HCl 1 mg 01/31/17 22:42 02/01/17 17:35 Dilaudid Inj IVP 1 mg Q4H PRN Administration PAIN Sodium Chloride 1,000 mls @ 100 mls/hr 01/31/17 16:11 02/02/17 07:44 Normal Saline 0.9% IV Not Given .Q10H ROM Famotidine 50 mls @ 100 mls/hr 01/31/17 21:00 02/02/17 08:11 Pepcid 20 Mg/50 Ml IV 100 mls/hr Q12H ROM Administration Azithromycin 250 mg/ Sodium 250 mls @ 83.33 mls/hr 02/01/17 09:00 02/02/17 09: 09 Chloride IV 83.33 mls/hr DAILY ROM Administration Ipratropium [place] 0.5 mg 01/31/17 19:00 02/02/17 11:19 Atrovent INH Not Given RTQID ROM Nicotine 1 patch 02/01/17 19:00 02/02/17 08:27 Nicoderm TOP Not Given DAILY ROM Ondansetron HCl 4 mg 01/31/17 16:12 02/01/17 17:41 Zofran Inj IVP 4 mg Q6HR PRN Administration Nausea / Vomiting Sodium Chloride 10 ml 01/31/17 16:08 02/01/17 10:28 Normal Saline Flush 0.9% IVP 10 ml PRN PRN Administration NEEDED PER PROVIDER ORDERS Sodium Chloride 10 ml 01/31/17 22:00 02/02/17 13:38 Normal Saline Flush 0.9% IVP Not Given Q8HR [facility] Objective - Vital Signs/Intake & Output Reviewed Vital Signs: Yes Vital Signs: Vital Signs x48h Temp Pulse Pulse Resp BP Pulse Ox 02/02/17 11:29 86 20 02/02/17 11:23 37.1 C 82 20 117/68 93 02/02/17 08:04 84 20 02/02/17 07:28 36.9 C 81 16 117/66 94 Intake & Output: Intake & Output 01/30/17 01/31/17 02/01/17 02/02/17 23:59 23:59 23:59 23:59 Intake Total 1681 1022 Output Total 650 825 850 Balance -650 856 172 - Objective General Appearance: positive: No acute distress, Alert Eyes Bilateral: positive: PERRL, EOMI ENT: positive: Pharynx nml Neck: positive: Nml inspection, No JVD Respiratory: positive: Chest non-tender, No respiratory distress, Breath sounds nml Cardiovascular: positive: Regular rate & rhythm, No murmur. negative: Tachycardia Peripheral Pulses: 2+ Radial (R), 2+ Radial (L) Abdomen: positive: Non-tender, Nml bowel sounds, No distention, Other (NGT to LIS with scant green output) Skin: positive: Color nml, Warm, Dry. negative: Skin rash Extremities: positive: Non-tender, Full ROM, Nml appearance. negative: Pedal edema, Calf tenderness, Joint swelling Neurologic/Psychiatric: positive: Oriented x3, CN's nml (2-12), Motor nml, Sensation nml, Mood/affect nml - Lab Results Fish Bones: 02/02/17 08:45 02/01/17 07:35 Other Labs: Lab Results x24hrs 02/02/17 Range/Units 08:45 WBC 12.2 H (4.8-10.8) x10^3/uL RBC 4.96 (4.70-6.10) 10^6/uL Hgb 13.5 L (14.0-18.0) g/dL Hct 42.3 (42.0-52.0) % MCV 85.3 (80.0-94.0) fL MCH 27.2 (27.0-31.0) pg MCHC 31.9 L (32.0-36.0) g/dL RDW 15.1 H (12.0-15.0) % Plt Count 220 (130-450) 10^3/uL MPV 7.8 (7.4-11.4) fL Neut # 10.5 H (1.5-6.6) 10^3/uL Lymph # 0.8 L (1.5-3.5) 10^3/uL [place] # 0.8 (0.0-1.0) 10^3/uL Eos # 0.0 (0.0-0.7) 10^3/uL Baso # 0.1 (0.0-0.1) 10^3/uL Absolute Nucleated RBC 0.00 x10^3/uL Nucleated RBCs 0.0 /100WBC - Diagnostic Imaging Diagnostic Imaging Results: positive: See rad report Assessment/Plan - Problem List (1) Partial small bowel obstruction Impression: S/P bowel resection 09/2016 for SBO with perforation. Returend with abdominal distention and constipation - initially resistant to NGT. Had small bwoel follow-though on 02/01 with large # of BMs produced that night. Now tih active to hyperactive bowel sounds, no nausea. CXR wiht a small amount of gas above the anastamosis - Gen surgery would like 1more day of NGT to LIS -ok for ice chips -NGT to LIS -Walk as much as possible (2) End stage chronic obstructive pulmonary disease Impression: No acute exacerabtion, on triology and 5-6liter O2 at home. -Continue O2 and triology (at bedside) -M/W/F Azith -Encourage smoking cessation (smokes 1-1/5ppd) -Nicotine patch daily -Follow-up with pulm as outpt (3) GERD (gastroesophageal reflux disease) Impression: No acute flare, no abdomianl pain or heartburn. -Continue PPI
[2017-02-02] MEDS: FLUTICASONE NASAL SPRAY NAS SCH (20:37)
[2017-02-03] MEDS: IPRATROPIUM 0.2 MG/ML NEB INH SCH ×3 (02:33→11:43)
[2017-02-03] MEDS: SODIUM CHLORIDE 0.9% 1,000 ML IV SCH (02:55)
[2017-02-03] MEDS: SODIUM CHLORIDE FLUSH 0.9% 10 ML SYRINGE IVP SCH ×2 (05:09→11:52)
[2017-02-03] MEDS: BUDESONIDE 0.5 MG/2 ML NEB INH SCH (07:20)
[2017-02-03] MEDS: IPRATROPIUM/ALBUTEROL 3 ML NEB INH PRN ×2 (07:20→11:43)
--- NOTE | 2017-02-03 08:50 | PROVIDER PROGRESS NOTE ---
Subjective - General Admit Date: 01/31/17 Procedure Date: 09/14/16 Post Op Days: 142 - Review of Systems General: positive: Other (tolerated NG clamped, then removed. Feels good, no complaints) Pulmonary: positive: No symptoms Cardiovascular: positive: No symptoms Gastrointestinal: positive: Flatus, Other (Has had additional BM yesterday and today. No N/V and no abdominal pain; has been tolerating apple juice). negative: Nausea, Vomiting Objective - Patient Data Reviewed Vital Signs: Yes Vital Signs: Vital Signs x48h Temp Pulse Pulse Resp BP Pulse Ox 02/03/17 07:56 37.1 C 79 18 146/78 H 94 02/03/17 07:26 65 22 02/03/17 04:03 36.8 C 69 18 153/82 H 94 Intake & Output: Intake and Output Totals x24h 02/01/17 02/02/17 02/03/17 23:59 23:59 23:59 Intake Total 1681 1828 1980 Output Total 825 950 Balance 237 449 0287 - Lab Results Lab Results: 02/02/17 08:45 02/01/17 07:35 Other Lab Results: Lab Results x24hrs 02/02/17 Range/Units 08:45 WBC 12.2 H (4.8-10.8) x10^3/uL RBC 4.96 (4.70-6.10) 10^6/uL Hgb 13.5 L (14.0-18.0) g/dL Hct 42.3 (42.0-52.0) % MCV 85.3 (80.0-94.0) fL MCH 27.2 (27.0-31.0) pg MCHC 31.9 L (32.0-36.0) g/dL RDW 15.1 H (12.0-15.0) % Plt Count 220 (130-450) 10^3/uL MPV 7.8 (7.4-11.4) fL Neut # 10.5 H (1.5-6.6) 10^3/uL Lymph # 0.8 L (1.5-3.5) 10^3/uL [place] # 0.8 (0.0-1.0) 10^3/uL Eos # 0.0 (0.0-0.7) 10^3/uL Baso # 0.1 (0.0-0.1) 10^3/uL Absolute Nucleated RBC 0.00 x10^3/uL Nucleated RBCs 0.0 /100WBC - Current Medications Current Medications: Current Medications Generic Name Dose Route Start Last Admin Trade Name Freq PRN Reason Stop Dose Admin Albuterol/Ipratropium 3 ml 01/31/17 18:10 02/03/17 07:20 Duoneb INH 3 ml Q4HR PRN Administration Wheezing Budesonide 0.5 mg 01/31/17 19:00 02/03/17 07:20 Pulmicort INH 0.5 mg RTBID ROM Administration Enoxaparin Sodium 40 mg 02/01/17 09:00 02/02/17 08:27 Lovenox SUBQ Not Given DAILY ROM Fluticasone Propionate 2 sprays 01/31/17 21:00 02/02/17 20:37 Flonase BHUPINDER 2 sprays QPM ROM Administration Hydromorphone HCl 1 mg 01/31/17 22:42 02/01/17 17:35 Dilaudid Inj IVP 1 mg Q4H PRN Administration PAIN Sodium Chloride 1,000 mls @ 100 mls/hr 01/31/17 16:11 02/03/17 02:55 Normal Saline 0.9% IV 100 mls/hr .Q10H ROM Administration Famotidine 50 mls @ 100 mls/hr 01/31/17 21:00 02/02/17 20:37 Pepcid 20 Mg/50 Ml IV 100 mls/hr Q12H ROM Administration Azithromycin 250 mg/ Sodium 250 mls @ 83.33 mls/hr 02/01/17 09:00 02/02/17 09: 09 Chloride IV 83.33 mls/hr DAILY ROM Administration Ipratropium [place] 0.5 mg 01/31/17 19:00 02/03/17 07:20 Atrovent INH Not Given RTQID ROM Nicotine 1 patch 02/01/17 19:00 02/02/17 08:27 Nicoderm TOP Not Given DAILY ROM Ondansetron HCl 4 mg 01/31/17 16:12 02/01/17 17:41 Zofran Inj IVP 4 mg Q6HR PRN Administration Nausea / Vomiting Sodium Chloride 10 ml 01/31/17 16:08 06/30/17 10:28 Normal Saline Flush 0.9% IVP 10 ml PRN PRN Administration NEEDED PER PROVIDER ORDERS Sodium Chloride 10 ml 01/31/17 22:00 02/03/17 05:09 Normal Saline Flush 0.9% IVP Not Given Q8HR ROM - Physical Exam General Appearance: positive: No acute distress, Alert Abdomen: positive: Non-tender (soft; protuberant; distension appears to have resolved; not tender; good BS), Nml bowel sounds, No distention Impression/Plan - Problem List Problem List: A/P: SBO - resolved Will advance diet as tolerated and he can likely be d/c'd later today from a surgical standpoint.
[2017-02-03] MEDS: AZITHROMYCIN INJ 250 MG in SODIUM CHLORIDE 0.9% 250 ML IV SCH (09:14)
[2017-02-03] MEDS: NICOTINE 14 MG PATCH TOP SCH (09:15)
[2017-02-03] MEDS: ENOXAPARIN 40 MG/0.4 ML SYRINGE SUBQ SCH (09:15)
[2017-02-03] MEDS: FAMOTIDINE 20 MG/50 ML 50 ML IV SCH (09:15)
--- NOTE | 2017-02-03 10:14 | Discharge Plan ---
Discharge Plan Disposition: 01 Home, Self Care Condition: Stable Diet: Regular Activity Restrictions: Activity as Tolerated Shower Restrictions: No Driving Restrictions: No Weight Bearing: Full Weight Additional Instructions or Follow Up instructions: You were admitted to the hospital for recurrent small bowel obstruction, this has resolved and you have been able to tolerate a regular diet. This can occur again, be aware of signs and symptoms: -constipation/not passing gas -abdominal bloating -nausea -abdominal pain -vomiting If symptoms occur, call your PCP to be seen in the next 24hr. If symptoms worsen and do not resolve then go to the ER. No Smoking: If you smoke, Please STOP! Call for help. Follow-up with: Cynthia Lake PA-C [Primary Care Provider] - 1 Week
[2017-02-03] MEDS ORDERED: PANTOPRAZOLE 40 MG TABLET PO SCH (11:00)
[2017-02-03 11:48] VITALS: BP 150/77
--- NOTE | 2017-02-04 13:45 | DISCHARGE SUMMARY ---
DATE OF ADMISSION: 01/31/2017 DATE OF DISCHARGE: 02/03/2017 ADMITTING PROVIDER: CESIA Ureña DISCHARGING PROVIDER: CESIA Zuniga CONSULTATION: Gladis Ward MD PRIMARY CARE PROVIDER: Cynthia Lake PA-C DISCHARGE DIAGNOSES 1. Partial small-bowel obstruction, resolved. 2. End-stage chronic obstructive pulmonary disease on home oxygen. No acute exacerbation. 3. Gastroesophageal reflux disease. DISCHARGE MEDICATION LIST: There have been no changes to the patient's home medication list. 1. Tylenol 650 mg by mouth every 4 hours as needed for pain or fever. 2. Albuterol 2.5 mg nebulized every 4 hours as needed for shortness of breath or wheezing. 3. Albuterol 2 puffs inhaled every 4 hours as needed for wheezing. 4. Azithromycin 250 mg by mouth every Saturday, Saturday and Saturday. 5. Fluticasone 2 sprays intranasally every evening. 6. Advair 500/50 Diskus 1 puff twice a day. 7. Guaifenesin 600 mg by mouth twice a day. 8. Omeprazole 20 mg by mouth daily before breakfast. 9. Spiriva 1 puff inhaled daily. 10. Trilogy at home per Pulmonary. 11. Cholestyramine 4 g by mouth twice a day. FOLLOWUP APPOINTMENTS 1. The patient will need to follow up at his primary care provider in 1 week for medical followup. 2. Follow up with Dr. [facility]a [facility] in 7-10 days for followup of recurrent small-bowel obst ruction. HOSPITAL COURSE 1. The patient is a very pleasant 76-year-old male with a history of small-bowel obstructio n with perforation in September 2016 status post partial bowel resection with anastomosis. He returned to the emergency room on 01/31 with complaints of abdominal distention and constipation. Imaging rev ealed a partial small-bowel obstruction with dilated loops of bowel near the anastomoses site. The pa tiezaire was initially resistant to NG tube, but after recurrent episodes of nausea and vomiting, finall y agreed. He underwent small bowel follow-through on 02/01/2017 and there was a complete stop of cont rast at the site of anastomosis. That evening, the patient began to have multiple large bowel movemen ts, a total of 14 overnight. The following day, he remained with NG tube intact. Followup x-rays stil l showed some air distention above the anastomoses. Dr. Ward requested 1 additional day of n.p.o. and NG tube to suction. He ambulated in the hallways and continued to have gas and bowel movements. O n 02/03/2017, the NG tube was removed. The patient was able to tolerate diet that was advanced to reg ular. He had no abdominal pain, no nausea or vomiting, abdomen was no longer distended. The patient w ill follow up with General Surgery in the clinic in 7-10 days. 2. End-stage COPD. The patient had no exacerbation of his COPD while in the hospital. He remained on his home dose of 5-6 L of oxygen and used his Trilogy at bedtime. Of note, the patient has been takin g his azithromycin every day instead of as prescribed Saturday, Saturday and Saturday. Again reviewed e appropriate dosing of his medication with the patient. He does continue to smoke 1 to 1-1/2 packs p er day while on oxygen, patient educated on risks and encouraged not to do this. [facility], was given nicotine patch, and his cravings were controlled. 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 3. GERD. No abdominal pain or reflux symptoms. Continued on PPI while inpatient. IMAGING STUDIES 1. On 01/31/2017, CT of abdomen and pelvis reveals partial small-bowel obstruction mid small bowel, t ransition point at the anastomotic site subadjacent to the umbilicus, colonic diverticulosis, small a mount of edema or fibrosis anterolateral left omentum. No abscess or focal fluid collection. Left nep hrolithiasis. Right posterior lung base infiltrate. 2. On 02/01/2017, small-bowel follow-through shows high-grade mid small-bowel obstruction. 3. On 02/02/2017, two-view of abdomen shows dilated small bowel within the left samantha-abdomen. This ma y be due to ileus or partial obstruction. Presence of gas projecting underneath the right hemidiaphra gm. LABS: CBC: WBC 15.5 on admission and 12.2 at discharge, hemoglobin 13.5 and hematocrit 42.3, platelet count 220. Chemistry: Sodium 141, potassium 4.4, chloride 102, carbon dioxide 32, BUN 21, creatinine 0.8, GFR 94, glucose 133. No lactic acidosis. Total bilirubin on admission 1.4. PHYSICAL EXAMINATION VITAL SIGNS: Temperature 36.9 degrees Celsius, heart rate 81 beats per minute, blood pressure 150/77, respiratory rate 17 breaths per minute, O2 saturation 94% on 6 L via nasal cannula. GENERAL: The patient is a well-developed 76-year-old male sitting up in bed in no acute dis tress. He is calm and cooperative with exam, very eager to get out of the hospital. LUNGS: Respiratio ns are equal, unlabored. He has scattered coarse breath sounds, no increased work of breathing. HEART: Regular rate and rhythm. No murmur, gallops or rubs. ABDOMEN: Round, soft, nontender with hyperactive bowel sounds. NEUROLOGIC: No focal neurological deficits. Speech is clear and coherent. Ambulatory with a steady ga it. MUSCULOSKELETAL: No joint swelling or effusion. SKIN: Warm, dry and intact. TIME SPENT ON DISCHARGE: Greater than 30 minutes. JOB #: [id number] EXT JOB #:[id number]
== END 2017-02-03 13:40 | disposition home or self-care (01) | DRG 390 ==
LOC: ED 11:52 → MS 16:08
PROVIDERS: ADMIT Nurse Practitioner; ATTEND Nurse Practitioner Acute Care
DX: K56.60 Unspecified intestinal obstruction (principal); K21.9 Gastro-esophageal reflux disease without esophagitis; J44.9 Chronic obstructive pulmonary disease, unspecified; K57.30 Diverticulosis of large intestine without perforation or abscess without bleeding; F17.200 Nicotine dependence, unspecified, uncomplicated; Z79.51 Long term (current) use of inhaled steroids; Z79.899 Other long term (current) drug therapy; D72.829 Elevated white blood cell count, unspecified; F17.210 Nicotine dependence, cigarettes, uncomplicated; H54.7 Unspecified visual loss; Z99.81 Dependence on supplemental oxygen; Z90.49 Acquired absence of other specified parts of digestive tract; Z86.2 Personal history of diseases of the blood and blood-forming organs and certain disorders involving the immune mechanism
CPT/HCPCS: 36415; 74000; 74020; 74177; 74250; 80048; 80053; 83605; 83690; 83735; 85025; 94640; 96365; 96375; 99283; 99284

== ENCOUNTER 2017-03-23 15:37 | Emergency (ER) | payer MEDICARE, OTHER ==
--- NOTE | 2017-03-23 16:14 | ED Physician Documentation ---
PD HPI DYSPNEA - Stated complaint Stated Complaint: SOA - Chief complaint Chief Complaint: Resp - History obtained from History obtained from: Patient - History of Present Illness Timing - onset: How many days ago (few) Timing - onset during: Light activity, Exertion. No: Rest Timing - duration: Days Timing - details: Gradual onset, Still present Inciting event(s): URI Associated symptoms: Cough, Wheezing. No: Fever, Hemoptysis, Chest pain / discomfort, Palpitations, Bilateral edema Similar symptoms before: Diagnosis (COPD and pneumonia, bronchitis. Is on zithromax 3 days a week as prophylactic. Does not take regular oral steroids.) Recently seen: Not recently seen Review of Systems Constitutional: reports: Myalgias. denies: Fever, Chills Nose: reports: Congestion. denies: Rhinorrhea / runny nose Throat: denies: Sore throat Cardiac: denies: Chest pain / pressure Respiratory: reports: Dyspnea, Cough (chronic), Wheezing. denies: Hemoptysis GI: denies: Nausea, Vomiting, Diarrhea Musculoskeletal: denies: Extremity swelling Neurologic: reports: Generalized weakness. denies: Focal weakness, Numbness, Near syncope PD PAST MEDICAL HISTORY - Past Medical History Cardiovascular: None Respiratory: COPD (home oxygen and nebulizers; chronic cough and wheezing. ) Neuro: None Endocrine/Autoimmune: None GI: GERD : None HEENT: Chronic vision loss Psych: None Musculoskeletal: None Derm: None - Past Surgical History Past Surgical History: Yes General: Cholecystectomy - Present Medications Home Medications: Ambulatory Orders Medication Instructions Recorded Confirmed Albuterol [Proventil Hfa] 2 puffs INH Q4H PRN 12/18/12 03/23/17 Tiotropium [Spiriva] 1 puffs INH DAILY 12/18/12 03/23/17 Fluticasone/Salmeterol [Advair 1 puffs INH BID 10/14/15 03/23/17 500-50 Diskus] Albuterol 2.5 mg INH RTQ4H PRN 09/15/16 03/23/17 Fluticasone [Flonase] 2 sprays BHUPINDER QPM 09/15/16 03/23/17 Acetaminophen [Tylenol] 650 mg PO Q4HR PRN #0 tablet 10/02/16 03/23/17 Azithromycin 250 mg PO MOWEFR 01/31/17 03/23/17 Omeprazole [PriLOSEC] 20 mg PO QDAC 01/31/17 03/23/17 Trilogy 1 tab PO DAILY 01/31/17 03/23/17 Dexamethasone [Decadron] 4 mg PO DAILY #15 tablet 03/23/17 Ipratropium [Atrovent] 0.2 mg INH BID #30 neb 03/23/17 - Allergies Allergies/Adverse Reactions: Allergies Allergy/AdvReac Type Severity Reaction Status Date / Time penicillin G Allergy Unknown Rash Verified 03/23/17 16:32 Penicillins Allergy Rash Verified 03/23/17 16:32 - Social History Does the pt smoke?: Yes Smoking Status: Current every day smoker Does the pt drink ETOH?: No Does the pt have substance abuse?: No - Family History Family history: reports: Non contributory - Immunizations Immunizations are current?: No - POLST Patient has POLST: No PD ED PE NORMAL - Vitals Vital signs reviewed: Yes - General General: Alert and oriented X 3, No acute distress, Well developed/nourished - HEENT HEENT: Ears normal, Moist mucous membranes, Pharynx benign - Neck Neck: Supple, no meningeal sign, No adenopathy - Cardiac Cardiac: RRR, No murmur - Respiratory Respiratory: No: Clear bilaterally (diffuse mild wheezing, no work of breathing. ) - Abdomen Abdomen: Soft, Non tender - Back Back: No CVA TTP - Derm Derm: Normal color, Warm and dry - Extremities Extremities: Normal ROM s pain, No edema, No calf tenderness / cord - Neuro Neuro: Alert and oriented X 3, No motor deficit, Normal speech Results - Vitals Vitals: Oxygen O2 Source [With Activity] 11L via oxymizer O2 Source [Without Activity] Oxymizer O2 Source Room air - Labs Labs: Laboratory Tests 03/23/17 03/23/17 16:49 16:49 WBC 8.3 RBC 4.90 Hgb 13.8 L Hct 43.1 MCV 87.9 MCH 28.2 MCHC 32.1 RDW 15.5 H Plt Count 187 MPV 8.0 Neut # 6.3 Lymph # 1.0 L [place] # 0.7 Eos # 0.2 Baso # 0.0 Absolute Nucleated RBC 0.00 Nucleated RBCs 0.0 Sodium 141 Potassium 4.0 Chloride 99 L Carbon Dioxide 37 H Anion Gap 5.0 L BUN 14 Creatinine 0.8 Estimated GFR (MDRD) 94 Glucose 112 H Calcium 9.1 Magnesium 1.7 Total Bilirubin 0.8 AST 15 ALT 14 Alkaline Phosphatase 69 Total Protein 7.5 Albumin 4.2 Globulin 3.3 Albumin/Globulin Ratio 1.3 Lipase 32 - Rads (name of study) chest Radiology: Prelim report reviewed (chronic changes but no focal infiltrates) PD MEDICAL DECISION MAKING - ED course Complexity details: reviewed results, re-evaluated patient (feels better with duoneb than he did with albuterol alone at home. he is usually on zithromax 3 days per week prophylactic and does not have colored sputum nor pneumonia, so did not add other abx. ), considered differential, d/w patient Departure - Departure Disposition: 01 Home, Self Care Clinical Impression: COPD with acute exacerbation Dyspnea Qualifiers: Dyspnea type: dyspnea on exertion Qualified Code(s): R06.09 - Other forms of dyspnea Condition: Stable Record reviewed to determine appropriate education?: Yes Instructions: ED COPD Flare Follow-Up: Cynthia Lake PA-C [Primary Care Provider] - Prescriptions: Ipratropium [Atrovent] 0.2 mg INH BID #30 neb Dexamethasone [Decadron] 4 mg PO DAILY #15 tablet Comments: Continue usual medications. Continue your albuterol nebulizers as you have been doing. Add ipratropium to it 2-3 times daily. Dexamethasone steroid as directed 1 tablet twice daily for 5 days and then daily for 5 days. Follow-up with your primary care this coming week and return sooner if worse. Discharge Date/Time: 03/23/17 18:30
[2017-03-23] MEDS ORDERED: IPRATROPIUM/ALBUTEROL 3 ML NEB INH STA (16:37)
[2017-03-23] MEDS ORDERED: DEXAMETHASONE 10 MG/ML VIAL PO STA (16:37)
[2017-03-23 16:55] LABS: BASOPHILS % (AUTO) 0.5 %; EOSINOPHILS # (AUTO) 0.2 10^3/uL (0.0-0.7); HGB - HEMOGLOBIN 13.8 g/dL (14.0-18.0); RED CELL DISTRIBUTION WIDTH 15.5 % (12.0-15.0); UNCORRECTED WHITE BLOOD COUNT 8.3 x10^3/uL; WHITE BLOOD COUNT 8.3 x10^3/uL (4.8-10.8)
[2017-03-23 16:58] LABS: EOSINOPHILS % (AUTO) 2.7 %; HCT - HEMATOCRIT 43.1 % (42.0-52.0); MEAN CORPUSCULAR HEMOGLOBIN 28.2 pg (27.0-31.0); MEAN CORPUSCULAR HGB CONC 32.1 g/dL (32.0-36.0); MEAN CORPUSCULAR VOLUME 87.9 fL (80.0-94.0); MONOCYTES # (AUTO) 0.7 10^3/uL (0.0-1.0); MONOCYTES % (AUTO) 8.4 %; NEUTROPHILS # (AUTO) 6.3 10^3/uL (1.5-6.6); NEUTROPHILS % (AUTO) 76.4 %
[2017-03-23 17:07] LABS: ALBUMIN/GLOBULIN RATIO 1.3 (1.0-2.2); BILIRUBIN,TOTAL 0.8 mg/dL (0.2-1.0); CALCIUM 9.1 mg/dL (8.5-10.3); CREATININE 0.8 mg/dL (0.6-1.2); MAGNESIUM 1.7 mg/dL (1.7-2.8); TOTAL PROTEIN 7.5 g/dL (6.7-8.2)
[2017-03-23] MEDS ORDERED: CHERRY SYRUP 10 ML UDC PO ONE (17:12)
[2017-03-23] MEDS ORDERED: DEXAMETHASONE 10 MG/ML VIAL ONE (17:12)
[2017-03-23] MEDS ORDERED: IPRATROPIUM/ALBUTEROL 3 ML NEB INH ONE (17:14)
--- NOTE | 2017-03-23 17:28 | XRAY Preliminary Report ---
Exam: XR Chest 2 View PA/LAT IMPRESSION: 1. Chronic findings of interstitial prominence and mild hyperinflation without focal acute airspace d [facility] SITE ID: [id number]
--- NOTE | 2017-03-23 17:31 | XRAY Report ---
EXAM: CHEST RADIOGRAPHY EXAM DATE: 03/23/2017 05:00 PM. CLINICAL HISTORY: Dyspnea worsening; COPD. . COMPARISON: None. TECHNIQUE: 2 views. FINDINGS: Lungs/Pleura: There are bibasilar pulmonary reticular lung markings with slight flattening of the hem idiaphragms. There is generalized interstitial prominence. These findings appear without significant change. Negative for pleural effusion and pneumothorax. Mediastinum: The heart size is normal. The trachea is midline. Other: None. IMPRESSION: 1. Chronic findings of interstitial prominence and mild hyperinflation without focal acute airspace d isease. [facility] Referring Provider Line: [phone] SITE ID: [id number]
[2017-03-23 18:14] VITALS: BP 136/79
== END 2017-03-23 18:30 | disposition home or self-care (01) ==
LOC: ED 15:37
DX: J44.1 Chronic obstructive pulmonary disease with (acute) exacerbation (principal); F17.200 Nicotine dependence, unspecified, uncomplicated
CPT/HCPCS: 36415; 71020; 80053; 83690; 83735; 85025; 94640; 99283; A9270; J7620

== ENCOUNTER 2017-04-19 14:55 | Outpatient (CLI) | payer MEDICARE, OTHER ==
--- NOTE | 2017-04-19 15:53 | CT Report ---
CT OF THE CHEST WITHOUT CONTRAST: 04/19/2017 CLINICAL INDICATION: Right pulmonary nodule. TECHNIQUE: Axial CT images of the chest were obtained without intravenous contrast. COMPARISON: Plain film of 03/23/2017, CT of 09/27/2016. FINDINGS: The heart and great vessels demonstrate mild atherosclerotic calcification. Calcified medi astinal and hilar lymph nodes are present, and calcified granulomas are again seen in the lungs. No s uspicious noncalcified pulmonary nodule or mass lesion is appreciated. No effusion or pneumothorax is present. Emphysematous changes are noted. The osseous structures demonstrate degenerative changes. L imited evaluation of upper abdominal structures demonstrates normal adrenal glands. Postoperative nataliya nges of cholecystectomy are noted. IMPRESSION: CALCIFIED GRANULOMAS. NO SUSPICIOUS NONCALCIFIED PULMONARY NODULE IS SEEN. EMPHYSEMA. In accordance with CT protocol optimization, one or more of the following dose reduction techniques w ere utilized for this exam: automated exposure control, adjustment of mA and/or KV based on patient size, or use of iterative reconstructive technique. JOB #: [id number] EXT JOB #:[id number]
== END 2017-04-19 14:56 | disposition home or self-care (01) ==
LOC: DI 14:55
PROVIDERS: ATTEND Internal Medicine Critical Care Medicine
DX: J84.10 Pulmonary fibrosis, unspecified (principal); J43.9 Emphysema, unspecified
CPT/HCPCS: 71250

== ENCOUNTER 2017-05-11 21:17 | Outpatient (CLI) | payer MEDICARE, OTHER | END 2017-05-11 21:18 | disposition critical access hospital (66) | LOC: EMS 21:17 | PROVIDERS: ATTEND Surgery | DX: R07.89 Other chest pain (principal) | CPT/HCPCS: A0425; A0427 ==

== ENCOUNTER 2017-05-11 21:36 | Emergency (ER) | payer MEDICARE, OTHER ==
--- NOTE | 2017-05-11 21:39 | ED Physician Documentation ---
PD HPI CHEST PAIN - Stated complaint Stated Complaint: CP/SOA - History obtained from History obtained from: Patient, Family - History of Present Illness Timing - onset: Enter time (20:30), Today Timing - onset during: Rest Timing - duration: Minutes Timing - details: Intermittant Pain level max: 3 Pain level now: 1 Quality: Tightness Location: Left chest Radiation: Back Improved by: Other (no ameliorating factors) Worsened by: Other (no exacerbating factors) Associated symptoms: Shortness of air (baseline) Similar symptoms before: Has not had sx before Recently seen: Not recently seen Review of Systems Cardiac: reports: Chest pain / pressure. denies: Palpitations Respiratory: reports: Dyspnea (baseline) GI: reports: Reviewed and negative PD PAST MEDICAL HISTORY - Past Medical History Cardiovascular: None Respiratory: COPD (home oxygen and nebulizers; chronic cough and wheezing. ) Neuro: None Endocrine/Autoimmune: None GI: GERD : None HEENT: Chronic vision loss Psych: None Musculoskeletal: None Derm: None - Past Surgical History Past Surgical History: Yes General: Cholecystectomy - Present Medications Home Medications: Ambulatory Orders Medication Instructions Recorded Confirmed Albuterol [Proventil Hfa] 2 puffs INH Q4H PRN 12/18/12 05/11/17 Tiotropium [Spiriva] 1 puffs INH DAILY 12/18/12 05/11/17 Fluticasone/Salmeterol [Advair 1 puffs INH BID 10/14/15 03/23/17 500-50 Diskus] Albuterol 2.5 mg INH RTQ4H PRN 09/15/16 05/11/17 Fluticasone [Flonase] 2 sprays BHUPINDER QPM 09/15/16 05/11/17 Acetaminophen [Tylenol] 650 mg PO Q4HR PRN #0 tablet 10/02/16 05/11/17 Azithromycin 250 mg PO MOWEFR 01/31/17 05/11/17 Omeprazole [PriLOSEC] 20 mg PO QDAC 01/31/17 05/11/17 Trilogy 1 tab PO DAILY 01/31/17 03/23/17 Dexamethasone [Decadron] 4 mg PO DAILY #15 tablet 03/23/17 Ipratropium [Atrovent] 0.2 mg INH BID #30 neb 08/19/17 10/07/17 Fluticasone/Salmeterol [Advair 1 each INH BID 05/11/17 05/11/17 500-50 Diskus] - Allergies Allergies/Adverse Reactions: Allergies Allergy/AdvReac Type Severity Reaction Status Date / Time penicillin G Allergy Unknown Rash Verified 05/11/17 21:44 Penicillins Allergy Rash Verified 05/11/17 21:44 - Social History Does the pt smoke?: Yes Smoking Status: Current every day smoker Does the pt drink ETOH?: No Does the pt have substance abuse?: No - Immunizations Immunizations are current?: No - POLST Patient has POLST: No PD ED PE NORMAL - Vitals Vital signs reviewed: Yes - General General: Alert and oriented X 3, No acute distress, Well developed/nourished - HEENT HEENT: Moist mucous membranes - Neck Neck: Supple, no meningeal sign - Cardiac Cardiac: RRR, No murmur - Respiratory Respiratory: No respiratory distress - Abdomen Abdomen: Soft, Non tender - Derm Derm: Normal color, Warm and dry PD ED PE EXPANDED - Respiratory Respiratory: Decreased breath sounds Results - Vitals Vitals: Oxygen O2 Source [] 11L via oxymizer O2 Source [] Oxymizer O2 Source Nasal cannula Oxygen Flow Rate 6 - EKG (time done) No standard instances Rate: Rate (enter#) (101) Rhythm: Sinus tachycardia, LAE Patterson: LAD, Anterior hemiblock Ischemia: Normal ST segments, Q waves (V1, V2) - Labs Labs: Laboratory Tests 05/11/17 05/11/17 05/11/17 22:20 22:20 22:20 WBC 11.5 H RBC 4.84 Hgb 13.8 L Hct 42.6 MCV 88.2 MCH 28.5 MCHC 32.3 RDW 15.6 H Plt Count 180 MPV 8.4 Neut # 9.2 H Lymph # 1.0 L [place] # 1.1 H Eos # 0.1 Baso # 0.0 Absolute Nucleated RBC 0.00 Nucleated RBC % 0.0 Sodium 142 Potassium 4.9 Chloride 102 Carbon Dioxide 34 H Anion Gap 6.0 BUN 23 H Creatinine 1.1 Estimated GFR (MDRD) 65 L Glucose 142 H Calcium 8.7 Total Bilirubin 0.8 AST 14 ALT 16 Alkaline Phosphatase 64 Troponin I 0.07 B-Natriuretic Peptide Total Protein 7.2 Albumin 3.9 Globulin 3.3 Albumin/Globulin Ratio 1.2 Lipase 35 05/11/17 05/12/17 22:20 00:39 WBC RBC Hgb Hct MCV MCH MCHC RDW Plt Count MPV Neut # Lymph # [place] # Eos # Baso # Absolute Nucleated RBC Nucleated RBC % Sodium Potassium Chloride Carbon Dioxide Anion Gap BUN Creatinine Estimated GFR (MDRD) Glucose Calcium Total Bilirubin AST ALT Alkaline Phosphatase Troponin I 0.08 B-Natriuretic Peptide 14 Total Protein Albumin Globulin Albumin/Globulin Ratio Lipase - Rads (name of study) chest xray Radiology: Prelim report reviewed, See rad report PD MEDICAL DECISION MAKING - ED course Complexity details: reviewed old records, reviewed results, re-evaluated patient , considered differential, d/w patient, d/w family ED course: Troponin results in indeterminate range (0.07), and 2 hour repeat without significant change (0.08). I also note previous results (October 2015) include a indeterminate range result (0.05). No acute findings on EKG. 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 Departure - Departure Disposition: 01 Home, Self Care Clinical Impression: Chest pain Qualifiers: Chest pain type: unspecified Qualified Code(s): R07.9 - Chest pain, unspecified Condition: Good Instructions: ED Chest Pain Atypical Unkn Cause Follow-Up: Cynthia Lake PA-C [Primary Care Provider] - Discharge Date/Time: 05/12/17 02:04
[2017-05-11 22:29] LABS: BASOPHILS % (AUTO) 0.3 %; EOSINOPHILS # (AUTO) 0.1 10^3/uL (0.0-0.7); EOSINOPHILS % (AUTO) 1.3 %; HCT - HEMATOCRIT 42.6 % (42.0-52.0); HGB - HEMOGLOBIN 13.8 g/dL (14.0-18.0); MEAN CORPUSCULAR HEMOGLOBIN 28.5 pg (27.0-31.0); MEAN CORPUSCULAR HGB CONC 32.3 g/dL (32.0-36.0); MEAN CORPUSCULAR VOLUME 88.2 fL (80.0-94.0); MEAN PLATELET VOLUME 8.4 fL (7.4-11.4); MONOCYTES # (AUTO) 1.1 10^3/uL (0.0-1.0); MONOCYTES % (AUTO) 9.4 %; NEUTROPHILS # (AUTO) 9.2 10^3/uL (1.5-6.6); RED BLOOD COUNT 4.84 10^6/uL (4.70-6.10); RED CELL DISTRIBUTION WIDTH 15.6 % (12.0-15.0); UNCORRECTED WHITE BLOOD COUNT 11.5 x10^3/uL; WHITE BLOOD COUNT 11.5 x10^3/uL (4.8-10.8)
[2017-05-11 22:44] LABS: ALBUMIN/GLOBULIN RATIO 1.2 (1.0-2.2); BILIRUBIN,TOTAL 0.8 mg/dL (0.2-1.0); CALCIUM 8.7 mg/dL (8.5-10.3); CREATININE 1.1 mg/dL (0.6-1.2); POTASSIUM 4.9 mmol/L (3.5-5.0); TOTAL PROTEIN 7.2 g/dL (6.7-8.2)
--- NOTE | 2017-05-11 23:10 | XRAY Preliminary Report ---
Exam: XR Chest 2 View PA/LAT IMPRESSION: Normal 2-view chest radiography. [facility] SITE ID: [id number]
--- NOTE | 2017-05-11 23:10 | XRAY Report ---
EXAM: CHEST RADIOGRAPHY EXAM DATE: 05/11/2017 10:42 PM. CLINICAL HISTORY: Chest pain. COMPARISON: 03/23/2017 chest x-ray. TECHNIQUE: 2 views. FINDINGS: Lungs/Pleura: No focal opacities evident. No pleural effusion. No pneumothorax. Normal volumes. Mediastinum: Heart and mediastinal contours are unremarkable. Other: None. IMPRESSION: Normal 2-view chest radiography. [facility] Referring Provider Line: [phone] SITE ID: [id number]
[2017-05-12] MEDS ORDERED: IPRATROPIUM/ALBUTEROL 3 ML NEB INH STA (00:30)
[2017-05-12] MEDS ORDERED: IPRATROPIUM/ALBUTEROL 3 ML NEB INH ONE (00:38)
[2017-05-12 01:14] VITALS: BP 156/77
== END 2017-05-12 02:04 | disposition home or self-care (01) ==
LOC: EDUNIT# → ED 21:36
DX: R07.9 Chest pain, unspecified (principal); R00.0 Tachycardia, unspecified; I44.4 Left anterior fascicular block; F17.200 Nicotine dependence, unspecified, uncomplicated
CPT/HCPCS: 36415; 71020; 80053; 83690; 83880; 84484; 85025; 93005; 94640; 99284; J7620

== ENCOUNTER 2017-05-14 13:48 | Outpatient (CLI) | payer MEDICARE, OTHER | END 2017-05-14 13:49 | disposition short-term general hospital (02) | LOC: EMS 13:48 | PROVIDERS: ATTEND Surgery | DX: R07.9 Chest pain, unspecified (principal); R06.02 Shortness of breath | CPT/HCPCS: A0425; A0427 ==

== ENCOUNTER 2017-09-03 11:18 | Outpatient (CLI) | payer MEDICARE, OTHER | END 2017-09-03 11:19 | disposition critical access hospital (66) | LOC: EMS 11:18 | PROVIDERS: ATTEND Surgery | DX: K62.5 Hemorrhage of anus and rectum (principal) | CPT/HCPCS: A0425; A0429 ==

== ENCOUNTER 2017-09-03 11:37 | Inpatient (IN) | payer MEDICARE, OTHER ==
--- NOTE | 2017-09-03 12:46 | ED Physician Documentation ---
PD HPI GI BLEED - Stated complaint Stated Complaint: GI BLEED - Chief complaint Chief Complaint: General - History obtained from History obtained from: Patient - History of Present Illness Timing - onset: Today Timing - duration: Hours (several hours - had red blood with BM this morning. History of loose stool due to stool softener, but has been soft without the softener for the past 1-2 weeks. No diarrhea per se. No abd pain, nausea, nor vomiting. He did feel lightheaded after his second episode of BRBPR.) Timing - details: Abrupt onset, Intermittant Associated symptoms: BRBPR, Maroon stool, Dizzy (did feel lightheaded after second episode.). No: Black/tarry stool, Constipation, Abdominal pain, Chest pain Contributing factors: Aspirin use, Anticoagulated (Plavix for stent placed 3 months ago). No: Sick contact, NSAID use Improved by: No: Eating, Position Worsened by: No: Eating, Moving, Position Similar symptoms before: Has not had sx before Recently seen: Not recently seen Review of Systems Constitutional: denies: Fever, Chills, Myalgias Nose: denies: Rhinorrhea / runny nose Throat: denies: Sore throat Cardiac: denies: Chest pain / pressure, Palpitations Respiratory: reports: Dyspnea (chronic, on home oxygen.), Cough GI: reports: Bloody / black stool. denies: Abdominal Pain, Nausea, Vomiting : denies: Dysuria, Frequency Skin: denies: Rash, Lesions Neurologic: denies: Near syncope (but did feel lightheaded) Endocrine: reports: Easy bruising / bleeding. denies: Weight loss Immunocompromised: denies: Immunocompromised PD PAST MEDICAL HISTORY - Past Medical History Past Medical History: Yes Cardiovascular: None Respiratory: COPD Neuro: None Endocrine/Autoimmune: None GI: GERD : None HEENT: Chronic vision loss Psych: None Musculoskeletal: None Derm: None - Past Surgical History Past Surgical History: Yes General: Cholecystectomy - Present Medications Home Medications: Ambulatory Orders Medication Instructions Recorded Confirmed Albuterol [Proventil Hfa] 2 puffs INH Q4H PRN 12/18/12 09/03/17 Tiotropium [Spiriva] 1 puffs INH DAILY 12/18/12 09/03/17 Fluticasone/Salmeterol [Advair 1 puffs INH BID 10/14/15 09/03/17 500-50 Diskus] Albuterol 2.5 mg INH RTQ4H PRN 09/15/16 09/03/17 Fluticasone [Flonase] 2 sprays BHUPINDER QPM 09/15/16 09/03/17 Acetaminophen [Tylenol] 650 mg PO Q4HR PRN #0 tablet 10/02/16 09/03/17 Omeprazole [PriLOSEC] 20 mg PO QDAC 01/31/17 09/03/17 Trilogy 1 tab PO DAILY 01/31/17 09/03/17 Ipratropium [Atrovent] 0.2 mg INH BID #30 neb 03/23/17 09/03/17 Fluticasone/Salmeterol [Advair 1 each INH BID 05/11/17 09/03/17 500-50 Diskus] Aspirin 81 mg PO 09/03/17 Atorvastatin [Lipitor] 09/03/17 Azithromycin 250 mg PO 09/03/17 Clopidogrel [Plavix] 75 mg PO DAILY 09/03/17 09/03/17 Diltiazem HCl [Diltiazem ER] 180 mg PO 09/03/17 Enalapril [Vasotec] 5 mg PO DAILY 09/03/17 09/03/17 Guaifenesin [Mucinex] 600 mg PO 09/03/17 - Allergies Allergies/Adverse Reactions: Allergies Allergy/AdvReac Type Severity Reaction Status Date / Time penicillin G Allergy Unknown Rash Verified 05/11/17 21:44 Penicillins Allergy Rash Verified 05/11/17 21:44 - Social History Does the pt smoke?: Yes Smoking Status: Current every day smoker Does the pt drink ETOH?: No Does the pt have substance abuse?: No - Family History Family history: reports: Non contributory - Immunizations Immunizations are current?: No - POLST Patient has POLST: No PD ED PE NORMAL - Vitals Vital signs reviewed: Yes (tachycardic) - General General: Alert and oriented X 3, No acute distress - HEENT HEENT: Pharynx benign - Neck Neck: No adenopathy, No bruit - Cardiac Cardiac: RRR (tachycardic), No murmur - Respiratory Respiratory: No: Clear bilaterally (diffuse mild wheezing. ) - Abdomen Abdomen: Normal bowel sounds, Soft, Non tender, Non distended, No organomegaly - Male Male : Deferred - Rectal Rectal: Other (red to slightly maroon colored stool in the vault. He has BM soon after that. No hemorrhoid nor obvious anal cause for the bleeding. ) - Back Back: No CVA TTP - Derm Derm: Normal color, Warm and dry - Extremities Extremities: Normal ROM s pain, No edema, No calf tenderness / cord - Neuro Neuro: Alert and oriented X 3, No motor deficit, Normal speech Results - Vitals Vitals: Vital Signs - 24 hr 09/03/17 09/03/17 11:42 13:50 Temperature 36.7 C Heart Rate 117 H 88 Respiratory 22 24 Rate Blood Pressure 118/77 115/66 O2 Saturation 95 100 Oxygen O2 Source [With Activity] 11L via oxymizer O2 Source [Without Activity] Oxymizer O2 Source Room air - Labs Labs: Laboratory Tests 09/03/17 09/03/17 09/03/17 13:20 13:20 13:20 WBC 13.9 H RBC 4.27 L Hgb 12.2 L Hct 38.2 L MCV 89.3 MCH 28.6 MCHC 32.0 RDW 14.2 Plt Count 245 MPV 7.8 Neut # 12.5 H Lymph # 0.6 L [place] # 0.8 Eos # 0.0 Baso # 0.0 Absolute Nucleated RBC 0.00 Nucleated RBC % 0.0 PT 10.3 INR 0.9 APTT 30.3 Sodium 141 Potassium 5.3 H Chloride 97 L Carbon Dioxide 34 H Anion Gap 10.0 BUN 21 H Creatinine 0.9 Estimated GFR (MDRD) 82 L Glucose 133 H Calcium 9.1 Magnesium 2.0 Total Bilirubin 0.5 AST 19 ALT 18 Alkaline Phosphatase 62 B-Natriuretic Peptide Total Protein 7.5 Albumin 4.2 Globulin 3.3 Albumin/Globulin Ratio 1.3 Lipase 28 09/03/17 13:20 WBC RBC Hgb Hct MCV MCH MCHC RDW Plt Count MPV Neut # Lymph # [place] # Eos # Baso # Absolute Nucleated RBC Nucleated RBC % PT INR APTT Sodium Potassium Chloride Carbon Dioxide Anion Gap BUN Creatinine Estimated GFR (MDRD) Glucose Calcium Magnesium Total Bilirubin AST ALT Alkaline Phosphatase B-Natriuretic Peptide 37 Total Protein Albumin Globulin Albumin/Globulin Ratio Lipase PD MEDICAL DECISION MAKING - ED course Complexity details: considered differential (onset red blood per rectum this morning with more output here in ED. He is on Plavix secondary to stent 3 months ago. No chest pains. Feels lightheaded. Hgb shows drop from 13.8 to 12.2 from prior CBC. I feel he needs to have degree of bleeding and effect of it monitored, kiah in leui of his concurrent heart/lung problems. ), d/w patient Departure - Departure Disposition: 66 [facility] DC/Xfer Clinical Impression: Lower GI bleeding, Lightheadedness, Antiplatelet or antithrombotic long-term use Condition: Stable Record reviewed to determine appropriate education?: Yes
[2017-09-03] MEDS ORDERED: SODIUM CHLORIDE 0.9% 500 ML IV ONE (13:07)
[2017-09-03 13:32] LABS: BASOPHILS % (AUTO) 0.1 %; EOSINOPHILS % (AUTO) 0.1 %; HGB - HEMOGLOBIN 12.2 g/dL (14.0-18.0); LYMPHOCYTES # (AUTO) 0.6 10^3/uL (1.5-3.5); LYMPHOCYTES % (AUTO) 4.1 %; MEAN CORPUSCULAR HEMOGLOBIN 28.6 pg (27.0-31.0); MEAN CORPUSCULAR VOLUME 89.3 fL (80.0-94.0); MEAN PLATELET VOLUME 7.8 fL (7.4-11.4); MONOCYTES # (AUTO) 0.8 10^3/uL (0.0-1.0); MONOCYTES % (AUTO) 5.9 %; NEUTROPHILS # (AUTO) 12.5 10^3/uL (1.5-6.6); NEUTROPHILS % (AUTO) 89.8 %; PLT - PLATELET COUNT 245 10^3/uL (130-450); RED BLOOD COUNT 4.27 10^6/uL (4.70-6.10); RED CELL DISTRIBUTION WIDTH 14.2 % (12.0-15.0); WHITE BLOOD COUNT 13.9 x10^3/uL (4.8-10.8)
[2017-09-03 13:38] LABS: INR 0.9 (0.8-1.2); PT - PROTHROMBIN TIME 10.3 secs (9.9-12.6)
[2017-09-03 13:50] LABS: ALBUMIN 4.2 g/dL (3.2-5.5); ALBUMIN/GLOBULIN RATIO 1.3 (1.0-2.2); BILIRUBIN,TOTAL 0.5 mg/dL (0.2-1.0); CALCIUM 9.1 mg/dL (8.5-10.3); CREATININE 0.9 mg/dL (0.6-1.2); TOTAL PROTEIN 7.5 g/dL (6.7-8.2)
[2017-09-03] MEDS ORDERED: metroNIDAZOLE 250 MG TABLET PO STA (15:18)
[2017-09-03 15:27] LABS: HGB - HEMOGLOBIN 11.4 g/dL (14.0-18.0)
[2017-09-03] MEDS ORDERED: ACETAMINOPHEN 325 MG TABLET PO PRN ×2 (16:06→17:40)
[2017-09-03] MEDS ORDERED: ONDANSETRON 4 MG/2 ML VIAL IVP PRN ×2 (16:06→17:40)
[2017-09-03] MEDS ORDERED: SODIUM CHLORIDE FLUSH 0.9% 10 ML SYRINGE IVP PRN ×2 (16:06→17:40)
[2017-09-03] MEDS ORDERED: SODIUM CHLORIDE 0.9% 1,000 ML IV ONE (16:07)
[2017-09-03] MEDS ORDERED: TRANEXAMIC ACID 1,000 MG in SODIUM CHLORIDE 0.9% 100ML 100 ML IV STA (16:08)
[2017-09-03] MEDS ORDERED: ALBUTEROL NEB 2.5 MG/3 ML INH PRN ×2 (16:19→17:40)
--- NOTE | 2017-09-03 16:49 | HISTORY & PHYSICAL EXAMINATION ---
Chief Complaint - Chief Complaint Chief Complaint: GI bleeding History of Present Illness - Admitted From Admitted From:: ER - History Obtained From History obtained from: Pt - History of Present Illness HPI Comment/Other: is 77-year-old male with a past medical history significant for advanced COPD with nasal cannel of 6 lifer of O2, CAD, HTN, hyperlipidemia, cardiac stents with Plavix for 3 months, chronic vision loss, GERD, partial colectomy, who present ER complaint of GI bleeding. Pt report he had two episodes of fresh blood stool today, each has about two small cup of fresh blood. Pt report this is his first time has blood stool. He report he had some dizziness but denies pre-syncope or syncope, "no real fainting." He denies chest pain, headache. He took Plavix for three months for cardiac stent. He report he just finish his Steroid taper pack for his COPD. He has been on 6 liter of oxygen daily for his COPD. He state he still smokes cigarette half pack per day, " I just can not get rid of cigarette, it is my girlfriend." He report he was used to smoke one and half of cigarette per day, and he cut it down to half pack per day now. He also report he had a diarrhea, " very bad, like water." He denies abdominal pain, nausea, vomiting. No fever, chill, cough. His HGB is 12.2 today in ER. Pt had HGB tested on 05/11/17, was 13.8. His C.Diff PCR test is positive for C.Diff Pt is afebril, HR is down to 88 from 117 after hydration at ER. History - Past Medical History Cardiovascular: reports: None Respiratory: reports: COPD Neuro: reports: None Endocrine/Autoimmune: reports: None GI: reports: GERD : reports: None HEENT: reports: Chronic vision loss Psych: reports: None Musculoskeletal: reports: None Derm: reports: None MRSA Hx?: No - Past Surgical History General: reports: Cholecystectomy - Family & Social History Living arrangement: At home - Substance History Dependence: Experiences withdrawal or developed tolerances: Tobacco Tobacco Details: Cigarettes - POLST Patient has POLST: No POLST Status: Full Code Meds/Allgy - Home Medications Home Medications: Ambulatory Orders Medication Instructions Recorded Confirmed Albuterol [Proventil Hfa] 2 puffs INH Q4H PRN 12/18/12 09/03/17 Tiotropium [Spiriva] 1 puffs INH DAILY 12/18/12 09/03/17 Albuterol 2.5 mg INH RTQ4H PRN 09/15/16 09/03/17 Fluticasone [Flonase] 2 sprays BHUPINDER QPM 09/15/16 09/03/17 Acetaminophen [Tylenol] 650 mg PO Q4HR PRN #0 tablet 10/02/16 09/03/17 Omeprazole [PriLOSEC] 20 mg PO QDAC 01/31/17 09/03/17 Trilogy 1 tab PO DAILY 01/31/17 09/03/17 Ipratropium [Atrovent] 0.2 mg INH BID #30 neb 03/23/17 09/03/17 Fluticasone/Salmeterol [Advair 1 each INH BID 05/11/17 09/03/17 500-50 Diskus] Aspirin 81 mg PO DAILY 09/03/17 09/03/17 Atorvastatin [Lipitor] 40 mg PO DAILY 09/03/17 09/03/17 Azithromycin 250 mg PO MOWEFR 09/03/17 09/03/17 Clopidogrel [Plavix] 75 mg PO DAILY 09/03/17 09/03/17 Diltiazem HCl [Diltiazem ER] 180 mg PO DAILY 09/03/17 09/03/17 Enalapril [Vasotec] 5 mg PO DAILY 09/03/17 09/03/17 Guaifenesin [Mucinex] 600 mg PO BID 09/03/17 09/03/17 - Allergies Allergies/Adverse Reactions: Allergies Allergy/AdvReac Type Severity Reaction Status Date / Time penicillin G Allergy Unknown Rash Verified 05/11/17 21:44 Penicillins Allergy Rash Verified 05/11/17 21:44 Review of Systems - Constitutional Constitutional: denies: Fatigue, Fever, Chills, Malaise, Weakness, Poor appetite , Diaphoresis, Night sweats - Eyes Eyes: denies: Pain, Irritation, Blurred vision, Spots in vision, Field loss, Vision loss, Dipolpia - Ears, Nose & Throat Ears, Nose & Throat: denies: Ear pain, Hearing loss, Hearing aids, Tinnitus, Nasal pain, Nasal discharge, Nosebleeds, Nasal congestion, Sore throat, Mouth lesions, Bleeding gums - Cardiovascular Cariovascular: denies: Irregular heart rate, Palpitations, Chest pain, Edema, Lightheadedness, Syncope, Exertional dyspnea, Decr. exercise tolerance - Respiratory Respiratory: denies: Cough, Sputum production, Wheezing, Snoring, Hemoptysis, Orthopnea, SOB at rest, SOB with exertion - Gastrointestinal Gastrointestinal: reports: Diarrhea, Change in bowel habits, Rectal bleeding, Bloody stools. denies: Abdominal pain, Abdominal distention, Constipation, Black stools, Nausea, Vomiting, Bile emesis, Guero blood emesis, Coffee grounds emesis, Poor appetite - Genitourinary Genitourinary: denies: Dysuria, Frequency, Urgency, Hematuria, Incontinence, Flank pain - Musculoskeletal Musculoskeletal: denies: Muscle pain, Back pain, Muscle aches, Stiffness, Limited range of motion, Muscle weakness, Joint pain, Joint swelling - Integumentary Integumentary: denies: Rash, Pruritis, Lesions, Dryness, Lumps, Acne - Neurological Neurological: denies: General weakness, Focal weakness, Headache, Dizziness, Numbness, Memory problems, Pre-existing deficit, Abnormal gait, Seizures, Incoordination, Slurred speech - Psychiatric Psychiatric: denies: Depression, Anxiety, Suicidal, Delusions, Hallucinations, Homicidal - Endocrine Endocrine: denies: Polyuria, Polydypsia, Polyphagia, Intolerance to cold, Intolerance to heat - Hematologic/Lymphatic Hematologic/Lymphatic: denies: Anemia, Bruising, Petechiae, Blood clots, Lymphadenopathy Exam - Vital Signs Reviewed Vital Signs: Yes Vital Signs: Vital Signs x48h Temp Pulse Resp BP Pulse Ox 09/03/17 13:50 88 24 115/66 100 09/03/17 11:42 36.7 C 117 H 22 118/77 95 - Physical Exam General Appearance: positive: No acute distress, Alert. negative: Lethargic Eyes Bilateral: positive: Normal inspection, PERRL, No lid inflammation, Conjunctivae nml ENT: positive: ENT inspection nml, Pharynx nml, No signs of dehydration. negative: Purulent nasal drainage, Pharyngeal erythema, Oral lesions Neck: positive: Nml inspection, Thyroid nml, No JVD, Trachea midline. negative : Thyromegaly, Lymphadenopathy (R), Lymphadenopathy (L), Stiff neck, Carotid bruit, Swelling/bruising, Tracheal deviation Respiratory: positive: Chest non-tender, No respiratory distress, Breath sounds nml. negative: Wheezes, Rales, Rhonchi Cardiovascular: positive: Regular rate & rhythm, No murmur, No gallop. negative : Irregularly irregular, Extrasystoles, Tachycardia, Bradycardia, Systolic murmur, Diastolic murmur Peripheral Pulses: positive: 2+ Abdomen: positive: Non-tender, No organomegaly, Nml bowel sounds. negative: Tenderness, Guarding, Rebound Back: positive: Nml inspection. negative: CVA tenderness (R), CVA tenderness (L ) Skin: positive: Color nml, No rash, Warm, Dry. negative: Cyanosis, Diaphoresis , Pallor Extremities: positive: Non-tender, Full ROM, Nml appearance. negative: Pedal edema, Calf tenderness, Joint swelling, Darnell's sign/cords Neurologic/Psychiatric: positive: Oriented x3, Motor nml, Sensation nml, Mood/ affect nml. negative: Weakness, Sensory loss, Facial droop, Slurred/abnml speech, Depressed mood/affect Conclusion/Plan - Problem List (1) GI bleeding Conclusion/Plan: HGB 12.2, hemodynamic stable at the time. H&H, follow up consult surgeon, follow up hold Plavix, Aspirin (2) C. difficile diarrhea Conclusion/Plan: Positive C.Diff in the stool test, without abdominal pain Flagyl PO mild hydration daily lab test, follow up C.Diff isolation protocol (3) COPD (chronic obstructive pulmonary disease) Conclusion/Plan: in ER, with 6 liter of O2, Sats 96%, stable. No fever, chill, cough Continue O2 supplement resume home INH treatment consult with RT for evaluation and treatment as the protocol vital, O2 Sats monitor (4) Hx of coronary artery disease Conclusion/Plan: No chest pain, palpitation, hemodynamic stable at the time. hold Plavix, Aspirin because of GI bleeding tele, vital monitor resume home medication Cardizem. (5) HTN (hypertension) Conclusion/Plan: stable, resume home medication Vasotec vital monitor (6) Currently smokes tobacco Conclusion/Plan: consult for current cigarette smoking, advise avoid cigarette smoking (7) Hyperlipidemia Conclusion/Plan: resume home meds Lipitor (8) DVT prophylaxis Conclusion/Plan: SCD (9) Full code status Conclusion/Plan: pt request full code - Lab Results Fish Bones: 09/04/17 02:23 09/03/17 13:20 Core Measures - Anticipated LOS I expect patient to be DC'd or transferred within 96 hours.: Yes
[2017-09-03] MEDS ORDERED: VANCOMYCIN 125 MG CAPSULE PO SCH ×2 (17:00→18:00)
[2017-09-03] MEDS ORDERED: SODIUM CHLORIDE 0.9% 1,000 ML IV SCH (17:00)
[2017-09-03] MEDS ORDERED: NICOTINE 21 MG PATCH TOP SCH ×2 (17:00→18:00)
--- NOTE | 2017-09-03 18:09 | MISCELLANEOUS PROVIDER NOTE ---
Miscellaneous Provider Note - - Note: Spoke at some length with patient - explained that the combination of his cardiac stents (requiring stents) and his continued smoking, which he says he cannot stop (requiring steroids, 6L of O2 and Azithromax), have resulted in his hospitalization. Explained that he tested positive for Clostridium difficile that is a result of his antibiotic use and that his steroid use has blunted his immune response. He should not have a colonoscopy now with an active C difficile infection. My recommendation is treat the infection with oral metronidazole (first line) or oral vancomycin (second line) and see if the patient improves. Should he become septic surgery can certainly be entertained but considering his end stage COPD, poor heart, and steroid use it is clear that surgery would carry an almost prohibitive risk of certainly morbidity and likely . I say almost but it would be very high. This was discussed with the patient in the presence of Dilcia, the nurse, and someone on the phone. No physical examination was done. Our role, as surgeons, is only if the patient becomes septic and surgical intervention is considered. Patient is aware.
[2017-09-03] MEDS: NICOTINE 21 MG PATCH TOP SCH (18:44)
[2017-09-03] MEDS: BUDESONIDE 0.5 MG/2 ML NEB INH SCH (19:11)
[2017-09-03] MEDS: IPRATROPIUM 0.2 MG/ML NEB INH SCH (19:12)
[2017-09-03] MEDS: FORMOTEROL FUMARATE NEB 20 MCG/2 ML INH SCH (19:12)
[2017-09-03] MEDS: SODIUM CHLORIDE 0.9% 1,000 ML IV SCH (20:57)
[2017-09-03] MEDS: metroNIDAZOLE 250 MG TABLET PO SCH (20:58)
[2017-09-03] MEDS: guaiFENesin 600 MG TABLET PO SCH (20:59)
[2017-09-03] MEDS: SODIUM CHLORIDE FLUSH 0.9% 10 ML SYRINGE IVP SCH (20:59)
[2017-09-03] MEDS ORDERED: FLUTICASONE NASAL SPRAY NAS SCH ×2 (21:00)
[2017-09-03] MEDS ORDERED: FLUTICASONE INH SCH (21:00)
[2017-09-03] MEDS ORDERED: ATORVASTATIN 40 MG TABLET PO SCH (21:00)
[2017-09-03] MEDS ORDERED: SALMETEROL INH SCH (21:00)
[2017-09-03] MEDS ORDERED: guaiFENesin 600 MG TABLET PO SCH (21:00)
[2017-09-03] MEDS ORDERED: IPRATROPIUM 0.2 MG/ML NEB INH SCH (21:00)
[2017-09-03] MEDS ORDERED: SODIUM CHLORIDE FLUSH 0.9% 10 ML SYRINGE IVP SCH (22:00)
--- NOTE | 2017-09-03 23:51 | XRAY Report ---
EXAM: CHEST RADIOGRAPHY EXAM DATE: 09/03/2017 09:35 PM. CLINICAL HISTORY: Shortness of breath. COMPARISON: Chest 05/11/2017. TECHNIQUE: 1 view. FINDINGS: Lungs/Pleura: New small bandlike opacity seen at the left lower lung, could represent atelectasis or small loculated pleural effusion in the left major fissure. No pneumothorax. Hyperexpanded lungs. Mediastinum: Within exam limitations, the cardiomediastinal contour is normal. IMPRESSION: New small bandlike opacity seen at the left lower lung, could represent atelectasis or sm all loculated pleural effusion in the left major fissure. [facility] Referring Provider Line: [phone] SITE ID: [id number]
[2017-09-04] MEDS: metroNIDAZOLE 250 MG TABLET PO SCH ×4 (00:35→17:32)
[2017-09-04 02:32] LABS: HGB - HEMOGLOBIN 9.6 g/dL (14.0-18.0)
[2017-09-04 06:20] LABS: BASOPHILS % (AUTO) 0.3 %; EOSINOPHILS # (AUTO) 0.2 10^3/uL (0.0-0.7); HGB - HEMOGLOBIN 9.9 g/dL (14.0-18.0); LYMPHOCYTES # (AUTO) 1.7 10^3/uL (1.5-3.5); LYMPHOCYTES % (AUTO) 17.3 %; MEAN CORPUSCULAR HEMOGLOBIN 28.6 pg (27.0-31.0); MEAN CORPUSCULAR HGB CONC 31.6 g/dL (32.0-36.0); MEAN CORPUSCULAR VOLUME 90.3 fL (80.0-94.0); MEAN PLATELET VOLUME 8.1 fL (7.4-11.4); MONOCYTES # (AUTO) 0.9 10^3/uL (0.0-1.0); MONOCYTES % (AUTO) 8.7 %; NEUTROPHILS # (AUTO) 7.2 10^3/uL (1.5-6.6); NEUTROPHILS % (AUTO) 71.7 %; PLT - PLATELET COUNT 207 10^3/uL (130-450); RED BLOOD COUNT 3.46 10^6/uL (4.70-6.10); RED CELL DISTRIBUTION WIDTH 14.2 % (12.0-15.0); WHITE BLOOD COUNT 10.1 x10^3/uL (4.8-10.8)
[2017-09-04 06:31] LABS: ALBUMIN 3.2 g/dL (3.2-5.5); ALBUMIN/GLOBULIN RATIO 1.4 (1.0-2.2); BILIRUBIN,TOTAL 0.7 mg/dL (0.2-1.0); CALCIUM 7.9 mg/dL (8.5-10.3); CREATININE 0.7 mg/dL (0.6-1.2); MAGNESIUM 1.8 mg/dL (1.7-2.8); TOTAL PROTEIN 5.5 g/dL (6.7-8.2)
[2017-09-04] MEDS: SODIUM CHLORIDE FLUSH 0.9% 10 ML SYRINGE IVP SCH ×2 (06:37→12:59)
[2017-09-04] MEDS ORDERED: ACETAMINOPHEN 325 MG TABLET PO PRN (08:05)
[2017-09-04] MEDS ORDERED: FAMOTIDINE 20 MG TABLET PO SCH ×2 (09:00)
[2017-09-04] MEDS ORDERED: ATORVASTATIN 10 MG TABLET PO SCH (09:00)
[2017-09-04] MEDS ORDERED: ASPIRIN CHEW 81 MG TABLET PO SCH (09:00)
[2017-09-04] MEDS ORDERED: POLYETHYLENE GLYCOL 3350 17 GM PACKET PO SCH ×2 (09:00)
[2017-09-04] MEDS ORDERED: DILTIAZEM HCL 180 MG PO SCH (09:00)
[2017-09-04] MEDS ORDERED: TRILOGY PO SCH ×2 (09:00)
[2017-09-04] MEDS ORDERED: TIOTROPIUM INHALER INH SCH (09:00)
[2017-09-04] MEDS ORDERED: diltiaZEM CD 180 MG CAPSULE PO SCH (09:00)
[2017-09-04] MEDS ORDERED: ENALAPRIL 5 MG TABLET PO SCH ×2 (09:00)
[2017-09-04] MEDS: IPRATROPIUM 0.2 MG/ML NEB INH SCH ×2 (09:15→14:00)
[2017-09-04] MEDS: FORMOTEROL FUMARATE NEB 20 MCG/2 ML INH SCH (09:15)
[2017-09-04] MEDS: BUDESONIDE 0.5 MG/2 ML NEB INH SCH (09:15)
[2017-09-04] MEDS: NICOTINE 21 MG PATCH TOP SCH (10:09)
[2017-09-04] MEDS: SODIUM CHLORIDE 0.9% 1,000 ML IV SCH (10:11)
[2017-09-04] MEDS: VANCOMYCIN 125 MG CAPSULE PO SCH ×3 (10:15→17:32)
[2017-09-04] MEDS: guaiFENesin 600 MG TABLET PO SCH (10:16)
[2017-09-04 14:20] LABS: HGB - HEMOGLOBIN 9.6 g/dL (14.0-18.0)
[2017-09-04 16:35] VITALS: BP 110/60
--- NOTE | 2017-09-04 17:06 | DISCHARGE SUMMARY ---
Discharge Summary Admit Date: 09/03/17 Discharge Date: 09/04/17 Discharging Provider: CESIA Garza Primary Care Provider: Cynthia Lake Code Status: Attempt Resuscitation Condition at Discharge: Good Discharge Disposition: Home, Self Care - DIAGNOSES Admission Diagnoses: Gastrointestinal hemorrhage, unspecified (K92.2) Enterocolitis due to Clostridium difficile, not specified as recurrent (A04.72) Chronic obstructive pulmonary disease, unspecified (J44.9) Nicotine dependence, unspecified, uncomplicated (F17.200) Personal history of other diseases of the circulatory system (Z86.79) Discharge Diagnoses with Status of Each Condition: Gastrointestinal hemorrhage, unspecified (K92.2) resolved at the time of discharge. Enterocolitis due to Clostridium difficile, not specified as recurrent (A04.72) improved, treatment to continue outpatient. Chronic obstructive pulmonary disease, unspecified (J44.9) chronic, stable. Nicotine dependence, unspecified, uncomplicated (F17.200) chronic, cessation encouraged. Personal history of other diseases of the circulatory system (Z86.79) chronic, stable. - HPI History of Present Illness: Dev Schaffer is a 77-year-old white male with a past medical history of oxygen dependent COPD, CAD, HTN, hyperlipidemia, cardiac stents ~3-4 months ago, chronic vision loss, GERD, and partial colectomy. He presented to the ER with complaints of GI and rectal bleeding. Patient admits to two episodes of rigoberto bloody, watery stools today prior to admission with each episode consisting of about two small cups. He states that this has never occurred before and was accompanied by some dizziness. He denies pre-syncope or syncope, "no real fainting", chest pain, abdominal pain, nausea, vomiting or headache. 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 He reports that he just finished his Steroid taper pack for his COPD and continues on 4-6L of oxygen at home. He admits to tobacco dependence that has decreased from one PPD now to 1/2 PPD, and states, " I just can not get rid of cigarettes, it is my girlfriend." Once in the ED, his HGB was 12.2, down from 13.8 on 05/11/17, C.Diff PCR test is positive, and he was mildly tachycardic with a heart rate of 117, down to 88 after hydration. He will be admitted for further work up of C diff, and we will hold Plavix given his rectal bleeding. - CONSULTS | PROCEDURES Consultations: General surgery-Dr. Barboza. - HOSPITAL COURSE Hospital Course: A stool sample was obtained and revealed +C-diff. Although clinical findings did not support this, such as the absence of abdominal pain, stool incontinence , and frequent, explosive, liquid stools. Rectal bleeding was noted that resolved at the time of discharge after stopping his post-cardiac stent Plavix. 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 A hard-copy will be sent to . Patient had an uneventful stay, but was very anxious to go after one night. Plans to discharge based on general well-appearance, labs, course of treatment and planned follow ups. Dr. Barboza' recommendation: "treat the infection with oral metronidazole (first line) or oral vancomycin (second line) and see if the patient improves. Should he become septic surgery can certainly be entertained but considering his end stage COPD, poor heart, and steroid use it is clear that surgery would carry an almost prohibitive risk of certainly morbidity and likely . I say almost but it would be very high. This was discussed with the patient in the presence of Dilcia, the nurse, and someone on the phone". The patient was discharged in stable condition on his usual amount of home oxygen and a resolution of rectal bleeding. Prescriptions were transmitted to pharmacy of choice. - ALLERGIES Allergies/Adverse Reactions: Allergies Allergy/AdvReac Type Severity Reaction Status Date / Time penicillin G Allergy Unknown Rash Verified 05/11/17 21:44 Penicillins Allergy Rash Verified 05/11/17 21:44 - MEDICATIONS Home Medications: Ambulatory Orders Medication Instructions Recorded Confirmed Albuterol [Proventil Hfa] 2 puffs INH Q4H PRN 12/18/12 09/04/17 Tiotropium [Spiriva] 1 puffs INH DAILY 12/18/12 09/03/17 Albuterol 3 ml INH RTQ6H PRN 09/15/16 09/04/17 Fluticasone [Flonase] 2 sprays BHUPINDER QPM PRN 09/15/16 09/03/17 Omeprazole [PriLOSEC] 20 mg PO QDAC 01/31/17 09/03/17 Fluticasone/Salmeterol [Advair 1 puffs INH BID 05/11/17 09/04/17 500-50 Diskus] Aspirin 81 mg PO DAILY 09/03/17 09/03/17 Atorvastatin [Lipitor] 40 mg PO DAILY 09/03/17 09/03/17 Diltiazem HCl [Diltiazem ER] 180 mg PO DAILY 09/03/17 09/03/17 Enalapril [Vasotec] 5 mg PO DAILY 09/03/17 09/03/17 Guaifenesin [Mucinex] 600 mg PO BID PRN 09/03/17 09/03/17 Acetaminophen/Diphenhydramine 1 tab PO QPM PRN 09/04/17 09/04/17 [Tylenol Pm Ex-Strength Caplet] Saccharomyces Boulardii [Florastor] 250 mg PO BID #60 capsule 09/04/17 Vancomycin [Vancocin] 250 mg PO QID 7 Days #28 capsule 09/04/17 metroNIDAZOLE [Flagyl] 500 mg PO BID 7 Days #14 tablet 09/04/17 - PHYSICAL EXAM AT DISCHARGE General Appearance: positive: No acute distress, Alert Eyes Bilateral: positive: Normal inspection, PERRL ENT: positive: ENT inspection nml, Pharynx nml Neck: positive: Nml inspection, Thyroid nml, No JVD, Trachea midline Respiratory: positive: Chest non-tender, No respiratory distress, Other ( diminished.) Cardiovascular: positive: Regular rate & rhythm, No gallop, Systolic murmur, Decreased pulse(s) Peripheral Pulses: positive: 1+ Abdomen: positive: Non-tender, Nml bowel sounds, No distention, Other (obese, soft) Back: positive: Nml inspection Skin: positive: No rash, Warm, Dry Extremities: positive: Non-tender, Full ROM, Nml appearance, Joint swelling Neurologic/Psychiatric: positive: Oriented x3, CN's nml (2-12), Motor nml, Sensation nml, Weakness, Sensory loss, Depressed mood/affect Reflexes: Bicep (R): 3+, Bicep (L): 3+ - LABS Result Diagrams: 09/04/17 14:11 09/04/17 06:10 - DIAGNOSTIC IMAGING Diagnostic Imaging Results: Final report reviewed - FOLLOW UP Follow Up: Disposition: Home, Self Care Condition: Good Prescriptions: metroNIDAZOLE [Flagyl] 500 mg PO BID 7 Days #14 tablet Saccharomyces Boulardii [Florastor] 250 mg PO BID #60 capsule Vancomycin [Vancocin] 250 mg PO QID 7 Days #28 capsule Diet: Cardiac Activity Restrictions: No Restrictions Shower Restrictions: No Driving Restrictions: No Weight Bearing: Full Weight Additional Instructions or Follow Up instructions: You were admitted for rectal/GI bleeding and were found to test positive for clostridium difficile. The treatment for this is vancomycin, that are now available in a PILL form. I have also prescribed flagyl and a probiotic for further treatment and prevention. Possible causes of this are; the PPI (proton pump inhibitor) or omeprazole that you take for acid reflux AND/OR the Azithromycin that you take to prevent COPD exacerbations. PPIs are the most likely culprit and also prevents vitamins and minerals to be absorbed as well, leading to low calcium and increased fracture risk. I suggest that you try cutting the dose down to just once per day. Or even better, trying an H2 brayden called Zantac or ranitidine. Please STOP your Plavix for now and see your cement fittings maker or make a call to his office in regards to when he would like you to re-start this medication. You can continue on a baby aspirin 81mg PO daily. Please report to the ED with any other evidence of bleeding or new onset chest pain. I would LOVE to see you stop your tobacco use. I also recommend cardiac and/or pulmonary rehab as this will promote more good days than bad. Please see your PCP as a follow up to this stay and to give further recommendations to out patient testing if needed. Take all other medications as prescribed. - TIME SPENT Time Spent in Discharge (Minutes): 45
[2017-09-04] MEDS ORDERED: metroNIDAZOLE 250 MG TABLET PO SCH (19:39)
[2017-09-04] MEDS ORDERED: VANCOMYCIN 125 MG CAPSULE PO ONE (19:40)
[2017-09-04] MEDS ORDERED: VANCOMYCIN 125 MG CAPSULE PO SCH (19:45)
== END 2017-09-04 19:58 | disposition home or self-care (01) | DRG 372 ==
LOC: EDUNIT# → EDBD → ED 11:37 → MS2 16:06 → ED 17:15
PROVIDERS: ADMIT Nurse Practitioner Gerontology; ATTEND Nurse Practitioner
DX: A04.72 Enterocolitis due to Clostridium difficile, not specified as recurrent (principal); R42 Dizziness and giddiness; K92.2 Gastrointestinal hemorrhage, unspecified; J44.9 Chronic obstructive pulmonary disease, unspecified; K21.9 Gastro-esophageal reflux disease without esophagitis; F17.210 Nicotine dependence, cigarettes, uncomplicated; E78.5 Hyperlipidemia, unspecified; I10 Essential (primary) hypertension; I25.10 Atherosclerotic heart disease of native coronary artery without angina pectoris; H54.7 Unspecified visual loss; Z99.81 Dependence on supplemental oxygen; Z79.51 Long term (current) use of inhaled steroids; Z79.02 Long term (current) use of antithrombotics/antiplatelets; Z79.82 Long term (current) use of aspirin; Z79.899 Other long term (current) drug therapy; Z90.49 Acquired absence of other specified parts of digestive tract; Z95.5 Presence of coronary angioplasty implant and graft
CPT/HCPCS: 36415; 71045; 80053; 83690; 83735; 83880; 85014; 85018; 85025; 85610; 85730; 86850; 86900; 86901; 87493; 94640; 96361; 96365; 99283; 99284

== ENCOUNTER 2017-10-19 09:25 | Emergency (ER) | payer MEDICARE, OTHER ==
[2017-10-19 09:55] VITALS: BP 112/55
--- NOTE | 2017-10-19 10:38 | XRAY Preliminary Report ---
Exam: XR CHEST 2 VIEW X-RAY IMPRESSION: Mild left basal opacity may reflect atelectasis or infiltrate. [facility] SITE ID: [id number]
--- NOTE | 2017-10-19 10:38 | XRAY Report ---
EXAM: CHEST RADIOGRAPHY EXAM DATE: 10/19/2017 10:22 AM. CLINICAL HISTORY: Cough. COMPARISON: 09/03/2017. TECHNIQUE: 2 views. FINDINGS: Lungs/Pleura: Mild left basal opacity may reflect atelectasis or infiltrate. No significant pleural e ffusion or evidence of pneumothorax. Mediastinum: Heart and mediastinal contours are unremarkable. Other: None. IMPRESSION: Mild left basal opacity may reflect atelectasis or infiltrate. [facility] Referring Provider Line: [phone] SITE ID: [id number]
[2017-10-19] MEDS ORDERED: AZITHROMYCIN 250 MG TABLET PO STA (11:07)
[2017-10-19] MEDS ORDERED: DEXAMETHASONE 10 MG/ML VIAL PO STA (11:07)
--- NOTE | 2017-10-19 11:20 | ED Physician Documentation ---
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 has him on pred 40 X 3 days then taper Review of Systems Constitutional: denies: Fever, Chills Cardiac: denies: Chest pain / pressure Respiratory: reports: Dyspnea, Cough, Wheezing GI: denies: Abdominal Pain Musculoskeletal: denies: Extremity swelling Endocrine: denies: Easy bruising / bleeding Immunocompromised: denies: Immunocompromised PD PAST MEDICAL HISTORY - Past Medical History Past Medical History: Yes Cardiovascular: Coronary artery disease Respiratory: COPD Neuro: None Endocrine/Autoimmune: None GI: GERD : None HEENT: Chronic vision loss Psych: None Musculoskeletal: None Derm: None - Past Surgical History Past Surgical History: Yes General: Cholecystectomy Cardiovascular: Coronary stent - Present Medications Home Medications: Ambulatory Orders Medication Instructions Recorded Confirmed Albuterol [Proventil Hfa] 2 puffs INH Q4H PRN 12/18/12 09/04/17 Tiotropium [Spiriva] 1 puffs INH DAILY 12/18/12 09/03/17 Albuterol 3 ml INH RTQ6H PRN 09/15/16 09/04/17 Fluticasone [Flonase] 2 sprays BHUPINDER QPM PRN 09/15/16 09/03/17 Omeprazole [PriLOSEC] 20 mg PO QDAC 01/31/17 09/03/17 Fluticasone/Salmeterol [Advair 1 puffs INH BID 05/11/17 09/04/17 500-50 Diskus] Aspirin 81 mg PO DAILY 09/03/17 09/03/17 Atorvastatin [Lipitor] 40 mg PO DAILY 09/03/17 09/03/17 Diltiazem HCl [Diltiazem ER] 180 mg PO DAILY 09/03/17 09/03/17 Enalapril [Vasotec] 5 mg PO DAILY 09/03/17 09/03/17 Guaifenesin [Mucinex] 600 mg PO BID PRN 09/03/17 09/03/17 Acetaminophen/Diphenhydramine 1 tab PO QPM PRN 09/04/17 09/04/17 [Tylenol Pm Ex-Strength Caplet] Saccharomyces Boulardii [Florastor] 250 mg PO BID #60 capsule 09/04/17 Vancomycin [Vancocin] 250 mg PO QID 7 Days #28 capsule 09/04/17 metroNIDAZOLE [Flagyl] 500 mg PO BID 7 Days #14 tablet 09/04/17 Azithromycin [Zithromax] 250 mg PO DAILY #6 tablet 10/19/17 predniSONE [Deltasone] 60 mg PO DAILY 2 Days #6 tablet 10/19/17 - Allergies Allergies/Adverse Reactions: Allergies Allergy/AdvReac Type Severity Reaction Status Date / Time penicillin G Allergy Unknown Rash Verified 05/11/17 21:44 Penicillins Allergy Rash Verified 05/11/17 21:44 - Social History Does the pt smoke?: Yes Smoking Status: Current every day smoker Does the pt drink ETOH?: No Does the pt have substance abuse?: No - Immunizations Immunizations are current?: No - POLST Patient has POLST: No POLST Status: Full Code PD ED PE NORMAL - Vitals Vital signs reviewed: Yes - Neck Neck: Supple, no meningeal sign - Cardiac Cardiac: RRR - Respiratory Respiratory: No respiratory distress, Other (mild harris insp exp wheezing - pt declines a neb tx) - Abdomen Abdomen: Soft, Non tender - Extremities Extremities: No edema, No calf tenderness / cord - Neuro Neuro: Alert and oriented X 3 Results - Vitals Vitals: Vital Signs - 24 hr 10/19/17 09:52 Temperature 36.9 C Heart Rate 91 Respiratory 18 Rate Blood Pressure 112/55 L O2 Saturation 93 Oxygen O2 Source [] 11L via oxymizer O2 Source [] Oxymizer O2 Source Nasal cannula Oxygen Flow Rate 6 - Labs Labs: Laboratory Tests 10/19/17 10:33 Influenza A (Rapid) Negative Influenza B (Rapid) Negative Influenza Types A,B Ag - - Rads (name of study) CXR Radiology: See rad report (mild left basilar opacity may be infiltrate) PD MEDICAL DECISION MAKING - ED course ED course: pt has home O2 and nebs and feels OK going home with inc steroids and antibiotics Departure - Departure Disposition: 01 Home, Self Care Clinical Impression: COPD with acute exacerbation Pneumonia Qualifiers: Pneumonia type: due to unspecified organism Laterality: left Lung location: lower lobe of lung Qualified Code(s): J18.1 - Lobar pneumonia, unspecified organism Condition: Good Instructions: ED Pneumonia Adult Follow-Up: Cynthia Lake PA-C [Primary Care Provider] - (for a recheck later this week ) Prescriptions: Azithromycin [Zithromax] 250 mg PO DAILY #6 tablet predniSONE [Deltasone] 60 mg PO DAILY 2 Days #6 tablet Comments: You have a left lung pneumonia Take the antibiotics for a total of five days. Take 3 pills (60 mg) of prednisone for the next two days and then continue the taper prescribed by your gear shaver set up operator Follow up with your PMD for a recheck next week. Return to the ER if worse
[2017-10-19] MEDS ORDERED: CHERRY SYRUP 10 ML UDC PO ONE (11:34)
== END 2017-10-19 12:37 | disposition home or self-care (01) ==
LOC: ED 09:25
DX: J44.1 Chronic obstructive pulmonary disease with (acute) exacerbation (principal); J18.9 Pneumonia, unspecified organism; I25.10 Atherosclerotic heart disease of native coronary artery without angina pectoris; K21.9 Gastro-esophageal reflux disease without esophagitis; Z79.82 Long term (current) use of aspirin; F17.200 Nicotine dependence, unspecified, uncomplicated; Z99.81 Dependence on supplemental oxygen
CPT/HCPCS: 71046; 87275; 87276; 99283; A9270

== ENCOUNTER 2017-10-22 08:01 | Outpatient (CLI) | payer MEDICARE, OTHER ==
[2017-10-22 13:18] LABS: BUN - BLOOD UREA NITROGEN 28 mg/dL (6-20); CARBON DIOXIDE - CO2 34 mmol/L (21-32); CHLORIDE 103 mmol/L (101-111); CHOL/HDL RATIO 2.5 (<5.0); CHOLESTEROL 140 mg/dL; CREATININE 0.7 mg/dL (0.6-1.2); GFR - MDRD 110 (>89); GLUCOSE 87 mg/dL (70-100); HDL CHOLESTEROL 57 mg/dL; LDL CHOLESTEROL,CALCULATED 64 mg/dL; LDL/HDL RATIO 1.1 (<3.6); SODIUM 144 mmol/L (135-145); VLDL CHOLESTEROL 19 mg/dL
== END 2017-10-22 08:02 | disposition home or self-care (01) ==
LOC: LAB.N 08:01
PROVIDERS: ATTEND Internal Medicine Interventional Cardiology
DX: I21.19 ST elevation (STEMI) myocardial infarction involving other coronary artery of inferior wall (principal)
CPT/HCPCS: 36415; 80048; 80061; 83721

== ENCOUNTER 2017-12-20 20:28 | Outpatient (CLI) | payer MEDICARE, OTHER | END 2017-12-20 20:29 | disposition critical access hospital (66) | LOC: EMS 20:28 | PROVIDERS: ATTEND Surgery | DX: R06.02 Shortness of breath (principal); R42 Dizziness and giddiness | CPT/HCPCS: A0425; A0427 ==

== ENCOUNTER 2017-12-20 20:47 | Inpatient (IN) | payer MEDICARE, OTHER ==
[2017-12-20] MEDS ORDERED: DEXAMETHASONE 10 MG/ML VIAL IVP STA (21:12)
[2017-12-20] MEDS ORDERED: ALBUTEROL NEB 2.5 MG/3 ML INH STA (21:12)
[2017-12-20 21:34] LABS: BASOPHILS % (AUTO) 0.3 %; CALCIUM 8.8 mg/dL (8.5-10.3); EOSINOPHILS # (AUTO) 0.1 10^3/uL (0.0-0.7); EOSINOPHILS % (AUTO) 0.9 %; LYMPHOCYTES # (AUTO) 1.2 10^3/uL (1.5-3.5); LYMPHOCYTES % (AUTO) 9.5 %; MEAN CORPUSCULAR HEMOGLOBIN 20.6 pg (27.0-31.0); MEAN CORPUSCULAR HGB CONC 29.4 g/dL (32.0-36.0); MEAN PLATELET VOLUME 6.7 fL (7.4-11.4); MONOCYTES % (AUTO) 8.2 %; NEUTROPHILS # (AUTO) 10.2 10^3/uL (1.5-6.6); NEUTROPHILS % (AUTO) 81.1 %; PLT - PLATELET COUNT 312 10^3/uL (130-450); RED BLOOD COUNT 3.37 10^6/uL (4.70-6.10); RED CELL DISTRIBUTION WIDTH 18.6 % (12.0-15.0); WHITE BLOOD COUNT 12.6 x10^3/uL (4.8-10.8)
[2017-12-20 21:36] LABS: HGB - HEMOGLOBIN 6.9 g/dL (14.0-18.0)
[2017-12-20 21:58] LABS: PLATELET MORPHOLOGY NORMAL APPEARANCE (NORMAL)
[2017-12-20 21:59] LABS: PLATELET ESTIMATE, MANUAL NORMAL (130-450,000) (NORMAL)
--- NOTE | 2017-12-20 22:26 | ED Physician Documentation ---
PD HPI DYSPNEA - Stated complaint Stated Complaint: SOA - Chief complaint Chief Complaint: Resp - History obtained from History obtained from: Patient, EMS - History of Present Illness Timing - onset: How many days ago (5) Timing - details: Gradual onset Pain level max: 0 Pain level now: 0 Improved by: O2, Rest Worsened by: Exertion Associated symptoms: Cough (not worse than baseline). No: Fever, Chest pain / discomfort, Palpitations, Diaphoresis Similar symptoms before: Diagnosis (COPD) Recently seen: Not recently seen - Additional information Additional information: COPD with 6-liter NC oxygen dependence c/o increasing dyspnea x 5 days with decreasing effectiveness of his MDI and nebulized treatments. he started taking prednisone last week, which he takes in bursts on a PRN basis; he had 40 mg QD x 4 days and than 20mg QD Review of Systems Constitutional: reports: Reviewed and negative Nose: reports: Reviewed and negative Throat: reports: Reviewed and negative Cardiac: reports: Reviewed and negative Respiratory: reports: Dyspnea, Cough (baseline) GI: denies: Abdominal Pain, Nausea, Vomiting, Diarrhea, Bloody / black stool : denies: Dysuria, Frequency Musculoskeletal: reports: Reviewed and negative Neurologic: reports: Reviewed and negative PD PAST MEDICAL HISTORY - Past Medical History Cardiovascular: Coronary artery disease Respiratory: COPD Endocrine/Autoimmune: None GI: GERD : None HEENT: Chronic vision loss Psych: None Musculoskeletal: None Derm: None - Past Surgical History Past Surgical History: Yes General: Cholecystectomy Cardiovascular: Coronary stent - Present Medications Home Medications: Ambulatory Orders Medication Instructions Recorded Confirmed Albuterol [Proventil Hfa] 2 puffs INH Q4H PRN 12/18/12 12/21/17 Tiotropium [Spiriva] 1 puffs INH DAILY 12/18/12 12/21/17 Albuterol 3 ml INH 5XD PRN 09/15/16 12/21/17 Fluticasone [Flonase] 2 sprays BHUPINDER QPM PRN 09/15/16 12/21/17 Omeprazole [PriLOSEC] 20 mg PO QDAC 01/31/17 12/21/17 Fluticasone/Salmeterol [Advair 1 puffs INH BID 05/11/17 12/21/17 500-50 Diskus] Diltiazem HCl [Diltiazem ER] 180 mg PO DAILY 09/03/17 12/21/17 Enalapril [Vasotec] 5 mg PO DAILY 09/03/17 12/21/17 Acetaminophen/Diphenhydramine 1 tab PO QPM PRN 09/04/17 12/21/17 [Tylenol Pm Ex-Strength Caplet] Atorvastatin [Lipitor] 40 mg PO DAILY 12/20/17 12/21/17 Clopidogrel [Plavix] 75 mg PO DAILY 12/20/17 12/21/17 Aspirin [Aspirin EC] 81 mg PO DAILY 12/21/17 12/21/17 Roflumilast [Daliresp] 500 mcg PO DAILY 12/21/17 12/21/17 Tamsulosin [Flomax] 0.4 mg PO DAILY 12/21/17 12/21/17 - Allergies Allergies/Adverse Reactions: Allergies Allergy/AdvReac Type Severity Reaction Status Date / Time penicillin G Allergy Unknown Rash Verified 05/11/17 21:44 Penicillins Allergy Rash Verified 12/20/17 20:52 - Social History Does the pt smoke?: Yes Smoking Status: Current every day smoker Does the pt drink ETOH?: No Does the pt have substance abuse?: No - Immunizations Immunizations are current?: No - POLST Patient has POLST: No POLST Status: Full Code PD ED PE NORMAL - Vitals Vital signs reviewed: Yes - General General: Alert and oriented X 3, No acute distress, Well developed/nourished - HEENT HEENT: Moist mucous membranes - Neck Neck: Supple, no meningeal sign - Cardiac Cardiac: RRR, No murmur - Respiratory Respiratory: No respiratory distress - Abdomen Abdomen: Soft, Non tender - Derm Derm: Normal color, Warm and dry - Extremities Extremities: No edema - Neuro Neuro: Alert and oriented X 3 PD ED PE EXPANDED - Respiratory Respiratory: Wheezing, Rhonchi (bilateral upper), Decreased breath sounds ( bilateral lower lung weiss) - Rectal Rectal: Heme Occult Pos - QC +, Hemorrhoid Results - Vitals Vitals: Vital Signs - 24 hr 12/20/17 12/20/17 22:40 22:43 Heart Rate 93 92 Respiratory 17 19 Rate Blood Pressure 149/66 H 149/66 H O2 Saturation 96 96 Oxygen O2 Source [With Activity] 11L via oxymizer O2 Source [Without Activity] Oxymizer O2 Source Room air Oxygen Flow Rate 6 - EKG (time done) No standard instances Rate: Rate (enter#) (98) Rhythm: NSR [place]: LAD Intervals: Normal DC QRS: Normal Ischemia: Normal ST segments, Q waves, Non specific changes (aVF) - Labs Labs: Laboratory Tests 12/20/17 12/20/17 12/20/17 21:19 21:19 21:19 WBC 12.6 H RBC 3.37 L Hgb 6.9 L* Hct 23.6 L MCV 70.0 L MCH 20.6 L MCHC 29.4 L RDW 18.6 H Plt Count 312 MPV 6.7 L Neut # 10.2 H Lymph # 1.2 L Douglas # 1.0 Eos # 0.1 Baso # 0.0 Absolute Nucleated RBC 0.00 Nucleated RBC % 0.0 Manual Slide Review Indicated WBC Morphology NORMAL APPEARANCE Platelet Estimate NORMAL (130-450,000) Platelet Morphology NORMAL APPEARANCE RBC Morph Micro Appear 1+ TARGET CELLS Sodium 141 Potassium 3.0 L Chloride 99 L Carbon Dioxide 34 H Anion Gap 8.0 BUN 23 H Creatinine 1.0 Estimated GFR (MDRD) 73 L Glucose 152 H Calcium 8.8 Troponin I < 0.04 B-Natriuretic Peptide Blood Type Antibody Screen Crossmatch IS Only 12/20/17 12/20/17 12/20/17 21:19 21:47 21:47 WBC RBC Hgb Hct MCV MCH MCHC RDW Plt Count MPV Neut # Lymph # Douglas # Eos # Baso # Absolute Nucleated RBC Nucleated RBC % Manual Slide Review WBC Morphology Platelet Estimate Platelet Morphology RBC Morph Micro Appear Sodium Potassium Chloride Carbon Dioxide Anion Gap BUN Creatinine Estimated GFR (MDRD) Glucose Calcium Troponin I B-Natriuretic Peptide 34 Blood Type A POSITIVE Cancelled Antibody Screen NEGATIVE Cancelled Crossmatch IS Only See Detail 12/20/17 21:47 WBC RBC Hgb Hct MCV MCH MCHC RDW Plt Count MPV Neut # Lymph # Douglas # Eos # Baso # Absolute Nucleated RBC Nucleated RBC % Manual Slide Review WBC Morphology Platelet Estimate Platelet Morphology RBC Morph Micro Appear Sodium Potassium Chloride Carbon Dioxide Anion Gap BUN Creatinine Estimated GFR (MDRD) Glucose Calcium Troponin I B-Natriuretic Peptide Blood Type Cancelled Antibody Screen Cancelled Crossmatch IS Only See Detail PD MEDICAL DECISION MAKING - ED course Complexity details: reviewed old records, reviewed results, re-evaluated patient , considered differential, d/w patient Departure - Departure Disposition: 66 [facility] DC/Xfer Clinical Impression: Severe chronic obstructive pulmonary disease, Anemia Condition: Stable Discharge Date/Time: 12/21/17 01:00
[2017-12-20] MEDS ORDERED: guaiFENesin 600 MG TABLET PO PRN (23:10)
[2017-12-20] MEDS ORDERED: FLUTICASONE NASAL SPRAY NAS PRN (23:10)
[2017-12-20] MEDS ORDERED: SODIUM CHLORIDE FLUSH 0.9% 10 ML SYRINGE IVP PRN (23:11)
[2017-12-20] MEDS ORDERED: ACETAMINOPHEN 325 MG TABLET PO PRN (23:11)
[2017-12-20] MEDS ORDERED: ZOLPIDEM 5 MG TABLET PO PRN (23:11)
[2017-12-20] MEDS ORDERED: MORPHINE 2 MG/ML SYRINGE IVP PRN (23:11)
[2017-12-20] MEDS ORDERED: PROCHLORPERAZINE 10 MG/2 ML VIAL IVP PRN (23:11)
[2017-12-20] MEDS ORDERED: PROMETHAZINE 25 MG/1 ML VIAL IM PRN (23:11)
[2017-12-20] MEDS ORDERED: oxyCODONE 5 MG TABLET PO PRN ×2 (23:11)
[2017-12-20] MEDS ORDERED: ONDANSETRON 4 MG/2 ML VIAL IVP PRN (23:11)
--- NOTE | 2017-12-20 23:28 | HISTORY & PHYSICAL EXAMINATION ---
Chief Complaint - Chief Complaint Chief Complaint: Shortness of breath History of Present Illness - Admitted From Admitted From:: Emergency department - History Obtained From Records Reviewed: Yes History obtained from: Patient Exam Limitations: None - History of Present Illness HPI Comment/Other: Patient is a 77-year-old gentleman with a past medical history significant for end-stage COPD on 6 L of home oxygen, coronary artery disease status post cardiac stent in May 2017 on Plavix, tobacco abuse, status post small bowel resection and anastomosis due to bowel obstruction with perforation in September 2016, GERD, history of erythrocytosis and leukocytosis, 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 The patient states that he has been experiencing shortness of breath off and on for a few weeks now but noticed that it became particularly worse over the last 4-5 days. He states that when he wakes up in the morning he does not feel too bad but as the day progresses he becomes more and more worn out. He states that just walking 10-15 feet he becomes out of breath. He denies any chest pain. He denies having had any wheezing. He states that he has been using his rescue inhaler and his daily Advair and Spiriva without any improvement of his symptoms. He states he has been using more and more of his albuterol over the last 2 days but has not noticed any improvement. He states that he has noticed that he has had increased dizziness the last 2 days. He states that he gets sweaty when he gets short of breath. He however denies any blood in his stools or dark tarry stools. The patient was placed on a tapered dose of prednisone for 1 week which he has been taking but has not improved his symptoms. The patient denies any abdominal pain or change in his appetite. The patient states that he continues to smoke. He denies any alcohol use. He denies any NSAID use. He states he has stopped taking aspirin. Today he states that his shortness of breath just became so severe that he decided to come into the emergency department. The patient denies any headaches, blurred vision, runny nose, sore throat, nasal congestion, difficulty swallowing, orthopnea, PND, increased lower extremity swelling, nausea, vomiting, diarrhea, constipation, urinary urgency, urinary frequency, dysuria, polyuria, polydipsia, increased joint pain, joint swelling, muscle aches, back pain, neck stiffness, hair loss, skin changes, recent unintentional weight loss or weight gain, night sweats or any focal neurologic deficits. On presentation to the emergency department the patient was afebrile and mildly tachycardic with a heart rate of 98. He was saturating around 91% on 6 L. The patient was tachypneic and did appear to be in some respiratory distress. The patient underwent some routine lab work which did reveal a mild leukocytosis with a hemoglobin of 6.9. The patient's previous hemoglobin from 4 months ago was 9.6 and prior to that patient's hemoglobins were in the 12-13 range. The patient was also noted to have hypokalemia with a potassium of 3.0 and an elevated glucose of 152. The patient EKG showed sinus rhythm without any ST elevations or ischemic changes. The patient did not undergo chest x-ray once he was found to be anemic. The patient's troponin was less than 0.04 and his BNP was normal. The patient's stool guaiac was positive in the emergency department. The patient was admitted for GI bleed and will need transfusion and monitoring. The patient states that he does not want EGD or colonoscopy at this time. History - Past Medical History Cardiovascular: reports: Hypertension, High cholesterol, Coronary artery disease Respiratory: reports: COPD Endocrine/Autoimmune: reports: None GI: reports: GERD, GI bleed (History of AVMs in his cecum), C.difficile, Other ( Status post partial small bowel resection secondary to bowel obstruction and perforation) : reports: None HEENT: reports: Chronic vision loss Psych: reports: None Musculoskeletal: reports: None Derm: reports: None MRSA Hx?: No - Past Surgical History General: reports: Cholecystectomy Cardiovascular: reports: Coronary stent - Family & Social History Family History: Mother: , Cancer (Father of stomach cancer and mother of uterine cancer), Father: , Cancer Family History Comment/Other: Patient was an only child Living arrangement: At home Living Situation: With spouse/s.o. Social History Notes: The patient lives in [place] with his . 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 He states that his father and grandfather were both farmers. He has 4 children all boys. 2 of them live in the [place] area and to live in [place]. The patient and his are planning to move to [place] at the end of the year. They just closed on a house in [place]. The patient continues to smoke 1 pack per day of cigarettes and has smoked for almost 60 years now. He does not plan on stopping. He denies any alcohol abuse or illicit drug use. - POLST Patient has POLST: No POLST Status: DNR Meds/Allgy - Home Medications Home Medications: Ambulatory Orders Medication Instructions Recorded Confirmed Albuterol [Proventil Hfa] 2 puffs INH Q4H PRN 12/18/12 09/04/17 Tiotropium [Spiriva] 1 puffs INH DAILY 12/18/12 09/03/17 Albuterol 3 ml INH RTQ6H PRN 09/15/16 09/04/17 Fluticasone [Flonase] 2 sprays BHUPINDER QPM PRN 09/15/16 09/03/17 Omeprazole [PriLOSEC] 20 mg PO QDAC 01/31/17 09/03/17 Fluticasone/Salmeterol [Advair 1 puffs INH BID 05/11/17 09/04/17 500-50 Diskus] Aspirin 81 mg PO DAILY 09/03/17 09/03/17 Diltiazem HCl [Diltiazem ER] 180 mg PO DAILY 09/03/17 09/03/17 Enalapril [Vasotec] 5 mg PO DAILY 09/03/17 09/03/17 Guaifenesin [Mucinex] 600 mg PO BID PRN 09/03/17 09/03/17 Acetaminophen/Diphenhydramine 1 tab PO QPM PRN 09/04/17 09/04/17 [Tylenol Pm Ex-Strength Caplet] predniSONE [Deltasone] 60 mg PO DAILY 2 Days #6 tablet 10/19/17 Atorvastatin [Lipitor] 12/20/17 Azithromycin 250 mg PO 12/20/17 Clopidogrel [Plavix] 75 mg PO DAILY 12/20/17 12/20/17 - Allergies Allergies/Adverse Reactions: Allergies Allergy/AdvReac Type Severity Reaction Status Date / Time penicillin G Allergy Unknown Rash Verified 05/11/17 21:44 Penicillins Allergy Rash Verified 12/20/17 20:52 Review of Systems - Other Findings Other Findings: A comprehensive review of systems was performed the pertinent positives and negatives are stated above in the HPI and the remainder of the review of systems is negative. Exam - Vital Signs Reviewed Vital Signs: Yes Vital Signs: Vital Signs x48h Temp Pulse Resp BP Pulse Ox 12/20/17 23:25 18 12/20/17 22:43 92 19 149/66 H 96 12/20/17 22:40 93 17 149/66 H 96 12/20/17 21:17 98 21 12/20/17 20:49 36.9 C 98 28 H 91 L - Physical Exam General Appearance: positive: Alert, Mild distress (Respiratory), Other ( Patient is a obese gentleman on chronic oxygen and becomes easily short of breath just during conversation and with minimal exertion.) Eyes Bilateral: positive: Normal inspection, PERRL, EOMI, No lid inflammation, No scleral icterus, Other (Conjunctival pallor) ENT: positive: ENT inspection nml, Pharynx nml, Dry mucous membranes. negative : Purulent nasal drainage, Pharyngeal erythema, Oral lesions Neck: positive: Nml inspection, Thyroid nml, No JVD, Trachea midline. negative : Thyromegaly, Lymphadenopathy (R), Lymphadenopathy (L), Stiff neck, Carotid bruit, Tracheal deviation Respiratory: positive: Chest non-tender, Rales (Crackles in the upper lungs bilaterally, expiratory), Other (Decreased breath sounds throughout especially in the lower lungs) Cardiovascular: positive: Regular rate & rhythm, No murmur, No gallop Peripheral Pulses: positive: 2+ Abdomen: positive: Non-tender, No organomegaly, Nml bowel sounds, No distention. negative: Guarding, Rebound, Hepatomegaly Rectal: positive: Stool - heme POS Back: positive: Nml inspection. negative: CVA tenderness (R), CVA tenderness (L ) Skin: positive: No rash, Warm, Dry. negative: Cyanosis, Diaphoresis, Pallor Extremities: positive: Non-tender, Full ROM, Nml appearance, No pedal edema Neurologic/Psychiatric: positive: Oriented x3, CN's nml (2-12), Motor nml, Sensation nml, Mood/affect nml Conclusion/Plan - Problem List (1) GI bleeding Conclusion/Plan: The patient presented to the emergency department with increasing shortness of breath over the last 4 days. The patient was also experiencing dizziness and fatigue. The patient initially thought that it was his COPD but it was not getting better despite being started on steroids, antibiotics and increased neb treatments. On presentation to the emergency department the patient was found to have a hemoglobin of 6.9 and had a positive stool guaiac. The patient has multiple risk factors for GI bleed. Including history of previous GI bleed from 2 AV malformations in the cecum. He also has history of tobacco abuse, is on Plavix for recent coronary artery stent in May 2017, is on steroids with prednisone and up until recently was using aspirin. Given the patient has not been having bright red blood cells likely a slow chronic bleed from an upper GI source. However given his history of AV malformations that cannot be completely ruled out. Plan: Transfuse 2 units of packed RBCs Monitor H&H every 6 IV Protonix twice daily for at least 24 hours Patient is refusing colonoscopy and EGD at this time therefore we will not consult surgery and treat him conservatively with transfusions and monitoring as well as Protonix. We will hold the patient's Plavix but given that he has had stents within the last year we will need to continue Plavix as soon as bleeding is stable. We will hold the patient's prednisone given his active GI bleeding. We will use SCDs for DVT prophylaxis Patient will be advised to quit smoking and avoid NSAIDs Qualifiers: GI bleed type/associated pathology: unspecified gastrointestinal hemorrhage type Qualified Code(s): K92.2 - Gastrointestinal hemorrhage, unspecified (2) COPD (chronic obstructive pulmonary disease) Conclusion/Plan: Patient has end-stage COPD and is on 6 L of oxygen at home. He has chronic respiratory failure. Patient presented with shortness of breath but this appears to be secondary to anemia. The patient's lung exam revealed upper airway crackles and decreased breath sounds in the lower lungs but no active wheezing. The patient has not been improving with steroids, antibiotics and nebulizer treatments. His shortness of breath seems to be secondary to anemia and his severe COPD. Plan: Patient will be continued on nebulizer treatments with albuterol every 4 hours as needed Patient will be placed on budesonide and formoterol twice daily while he is hospitalized Patient will be continued on his home dose of oxygen We will hold prednisone given active GI bleeding We will continue azithromycin Saturday Palliative care consult as inpatient versus outpatient Qualifiers: COPD type: unspecified COPD Qualified Code(s): J44.9 - Chronic obstructive pulmonary disease, unspecified (3) Hx of coronary artery disease Conclusion/Plan: The patient has a history of coronary artery disease status post stent in May 2017. Patient is currently on Plavix given his recent stent. Assuming that it was a drug-eluting stent the patient will need to be continued on Plavix for 1 year. The patient does not appear to be having a brisk GI bleed and rather he appears to have a slow chronic GI bleed. For now the patient's Plavix will be held until we transfuse him and hemoglobin remained stable. Given how recent his stents were the patient will need to continue on Plavix but will have to be monitored closely for any further bleeding. Patient is not currently having any chest pain and troponin and EKG were negative on presentation. (4) HTN (hypertension) Conclusion/Plan: The patient's blood pressure is well controlled on presentation he will be continued on his home medications and we will continue to monitor his blood pressure Stable Qualifiers: Hypertension type: essential hypertension Qualified Code(s): I10 - Essential (primary) hypertension (5) Hyperlipidemia Conclusion/Plan: The patient has history of hyperlipidemia and is on statin at home. We will continue his home dose of statin. Stable Qualifiers: Hyperlipidemia type: unspecified Qualified Code(s): E78.5 - Hyperlipidemia , unspecified (6) Tobacco abuse Conclusion/Plan: The patient has a history of tobacco abuse and continues to smoke. The patient states that he is not interested in smoking. We did talk to him about the risks of continued smoking including worsening of his COPD and increased risk of further coronary artery disease. Also spoke to him about smoking and relationship with GI bleeds. The patient was interested in having a nicotine patch and states he has cut down his smoking but is not interested in stopping. (7) Hypokalemia Conclusion/Plan: On presentation patient's potassium is 3.0 The patient is not on Lasix it is unclear as to why his potassium is low at this time We will replace potassium and continue to monitor. - Lab Results Lab results reviewed: Yes Fish Bones: 12/20/17 23:30 12/20/17 21:19 Other Lab Results: Laboratory Results WBC 13.2 x10^3/uL (4.8-10.8) H 12/20/17 23:30 RBC 3.49 10^6/uL (4.70-6.10) L 12/20/17 23:30 Hgb 6.9 g/dL (14.0-18.0) L* 12/20/17 23: Hct 24.5 % (42.0-52.0) L 12/20/17 23:30 MCV 70.1 fL (80.0-94.0) L 12/20/17 23: MCH 19.8 pg (27.0-31.0) L 12/20/17 23: MCHC 28.2 g/dL (32.0-36.0) L 12/20/17 23: RDW 18.4 % (12.0-15.0) H 12/20/17 23: Plt Count 340 10^3/uL (130-450) 12/20/17 23: MPV 6.9 fL (7.4-11.4) L 12/20/17 23:30 Neut # 12.0 10^3/uL (1.5-6.6) H 12/20/17 23:30 Lymph # 0.5 10^3/uL (1.5-3.5) L 12/20/17 23:30 Boyle # 0.6 10^3/uL (0.0-1.0) 12/20/17 23: Eos # 0.1 10^3/uL (0.0-0.7) 12/20/17 23:30 Baso # 0.0 10^3/uL (0.0-0.1) 12/20/17: Absolute Nucleated RBC 0.00 x10^3/uL 12/20/17 23: Nucleated RBC % 0.0 /100WBC 12/20/17 23:30 Manual Slide Review Indicated 12/20/17 21: WBC Morphology NORMAL APPEARANCE (NORMAL) 12/20/17: Platelet Estimate NORMAL (130-450,000) (NORMAL) 12/20/17: Platelet Morphology NORMAL APPEARANCE (NORMAL) 12/20/17: RBC Morph Micro Appear 2+ ANISOCYTOSIS (NORMAL) 3+ HYPOCHROMASIA (NORMAL) 2 + MICROCYTOSIS (NORMAL) 1+ OVALOCYTES (NORMAL) 1+ TARGET CELLS (NORMAL) 05/ 18/18 21:19 RBC Morph Micro Appear 2+ ANISOCYTOSIS (NORMAL) 3+ HYPOCHROMASIA (NORMAL) 2 + MICROCYTOSIS (NORMAL) 1+ OVALOCYTES (NORMAL) 1+ TARGET CELLS (NORMAL) 21:19 RBC Morph Micro Appear 2+ ANISOCYTOSIS (NORMAL) 3+ HYPOCHROMASIA (NORMAL) 2 + MICROCYTOSIS (NORMAL) 1+ OVALOCYTES (NORMAL) 1+ TARGET CELLS (NORMAL) 21:19 RBC Morph Micro Appear 2+ ANISOCYTOSIS (NORMAL) 3+ HYPOCHROMASIA (NORMAL) 2 + MICROCYTOSIS (NORMAL) 1+ OVALOCYTES (NORMAL) 1+ TARGET CELLS (NORMAL) 21:19 RBC Morph Micro Appear 2+ ANISOCYTOSIS (NORMAL) 3+ HYPOCHROMASIA (NORMAL) 2 + MICROCYTOSIS (NORMAL) 1+ OVALOCYTES (NORMAL) 1+ TARGET CELLS (NORMAL) 21:19 Sodium 141 mmol/L (135-145) 12/20/17 21:19 Potassium 3.0 mmol/L (3.5-5.0) L 12/20/17 21: Chloride 99 mmol/L (101-111) L 12/20/17 21:19 Carbon Dioxide 34 mmol/L (21-32) H 12/20/17 21: Anion Gap 8.0 (6-13) 12/20/17 21:19 BUN 23 mg/dL (6-20) H 12/20/17 21:19 Creatinine 1.0 mg/dL (0.6-1.2) 12/20/17 21: Estimated GFR (MDRD) 73 (>89) L 12/20/17 21:19 Glucose 152 mg/dL (70-100) H 12/20/17 21: Calcium 8.8 mg/dL (8.5-10.3) 12/20/17 21: Troponin I < 0.04 ng/mL (<0.49) 12/20/17 21: B-Natriuretic Peptide 34 pg/mL (5-100) 12/20/17 21: Blood Type A POSITIVE 12/20/17:47 Antibody Screen NEGATIVE 12/20/17:47 Crossmatch IS Only See Detail 12/20/17: - EKG Results EKG Interpreted Independently: Yes EKG Comparison: Unchanged from prior EKG Core Measures - Anticipated LOS I expect patient to be DC'd or transferred within 96 hours.: Yes - DVT/VTE - Prophylaxis VTE/DVT Device ordered at admit?: Yes
[2017-12-20 23:42] LABS: BASOPHILS % (AUTO) 0.3 %; EOSINOPHILS # (AUTO) 0.1 10^3/uL (0.0-0.7); EOSINOPHILS % (AUTO) 0.7 %; LYMPHOCYTES # (AUTO) 0.5 10^3/uL (1.5-3.5); LYMPHOCYTES % (AUTO) 3.6 %; MEAN CORPUSCULAR HEMOGLOBIN 19.8 pg (27.0-31.0); MEAN CORPUSCULAR HGB CONC 28.2 g/dL (32.0-36.0); MEAN CORPUSCULAR VOLUME 70.1 fL (80.0-94.0); MEAN PLATELET VOLUME 6.9 fL (7.4-11.4); MONOCYTES # (AUTO) 0.6 10^3/uL (0.0-1.0); MONOCYTES % (AUTO) 4.5 %; NEUTROPHILS % (AUTO) 90.9 %; PLT - PLATELET COUNT 340 10^3/uL (130-450); RED BLOOD COUNT 3.49 10^6/uL (4.70-6.10); RED CELL DISTRIBUTION WIDTH 18.4 % (12.0-15.0); WHITE BLOOD COUNT 13.2 x10^3/uL (4.8-10.8)
[2017-12-20 23:49] LABS: HGB - HEMOGLOBIN 6.9 g/dL (14.0-18.0)
[2017-12-21] MEDS ORDERED: POTASSIUM CHLORIDE 20 MEQ TABLET PO SCH (01:14)
--- NOTE | 2017-12-21 01:19 | ADVANCE CARE PLANNING NOTE ---
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 He is now presenting with GI bleeding and given his comorbid conditions has a very poor prognosis going forward. Today we discussed his goals of care, CODE STATUS and his future goals for treatment. - Parties in attendance Parties in attendance: Myself Dr. Castillo and the patient Alphonso Schaffer - Decisional capacity Decisional capacity of: Patient has full decisional capacity. He is alert and oriented 3 and has good insight on his condition. - Subjective/Patient's story Subjective/Patient's story: The patient is a 77-year-old gentleman with history of end-stage COPD on 6 L of oxygen who has had a recent coronary artery stent placed in May 2017 on Plavix and now presents with anemia, increasing shortness of breath and GI bleeding. The patient continues to smoke and is not interested in getting colonoscopy or EGD at this time. He is being admitted to the hospital for GI bleed. 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 Given all the patient's comorbid conditions he has poor prognosis going forward. His GI bleeding is complicated by the fact that he needs to remain on Plavix due to his recent coronary artery stent. It is also complicated by the fact that patient has end-stage COPD and is not a great candidate for any kind of procedures including EGD and colonoscopy. It is also complicated by the fact that with worsening anemia the patient has increasing shortness of breath due to his already compromised respiratory status. - Goals of Care Goals of care determinations: Set with the patient and discussed goals of care. The patient made it very apparent that he is not interested in quitting smoking. He is also not interested in doing an EGD or colonoscopy during this hospitalization and states that he would never drink the GoLYTELY necessary to do a colonoscopy in the future. The patient understands that he has a poor prognosis given the severity of his COPD and wondered today what would look like for him and whether he would suffer. I explained to the patient that there are methods by which we can reduce suffering at the end of life and the patient expressed interest in palliative care. The patient made it clear that he does not want to be resuscitated nor does he want to be intubated in the future. He also made it clear that his main goal for treatment is to be comfortable and to maximize the quality of life that he has remaining. At this time he does not want invasive procedure like EGD or colonoscopy but he states that he continues to bleed and it continues to cause him trouble breathing that he would consider it in the future. - Plan Plan: 1. Patient's CODE STATUS changed to DNR/DNI 2. Patient will be referred for palliative care consult. Patient states he is planning to move to [place], [place] at the end of this year but is still interested in establishing a relationship with palliative care prior to leaving. 3. During this hospitalization the patient will be transfused and we will monitor his hemoglobin as well as treat him with Protonix IV. We will not consult surgery as the patient is not interested in EGD or colonoscopy at this time. - Code Status Code Status: Do Not Attempt Resuscitation - Time Spent on Advance Care Planning Time spent on advance care plannin minutes
[2017-12-21] MEDS: ALBUTEROL NEB 2.5 MG/3 ML INH PRN ×6 (01:40→21:51)
[2017-12-21] MEDS: SODIUM CHLORIDE FLUSH 0.9% 10 ML SYRINGE IVP SCH ×3 (03:41→16:37)
[2017-12-21] MEDS: PANTOPRAZOLE 40 MG VIAL IVP SCH ×3 (03:41→21:42)
[2017-12-21 05:44] LABS: BASOPHILS % (AUTO) 0.2 %; LYMPHOCYTES # (AUTO) 0.3 10^3/uL (1.5-3.5); LYMPHOCYTES % (AUTO) 2.4 %; MEAN CORPUSCULAR HEMOGLOBIN 21.4 pg (27.0-31.0); MEAN CORPUSCULAR HGB CONC 29.8 g/dL (32.0-36.0); MEAN CORPUSCULAR VOLUME 71.9 fL (80.0-94.0); MEAN PLATELET VOLUME 7.5 fL (7.4-11.4); MONOCYTES # (AUTO) 0.1 10^3/uL (0.0-1.0); MONOCYTES % (AUTO) 1.2 %; NEUTROPHILS # (AUTO) 10.1 10^3/uL (1.5-6.6); NEUTROPHILS % (AUTO) 96.2 %; PLT - PLATELET COUNT 305 10^3/uL (130-450); RED BLOOD COUNT 3.73 10^6/uL (4.70-6.10); RED CELL DISTRIBUTION WIDTH 19.6 % (12.0-15.0); WHITE BLOOD COUNT 10.5 x10^3/uL (4.8-10.8)
[2017-12-21 05:49] LABS: ALBUMIN 3.8 g/dL (3.2-5.5); ALBUMIN/GLOBULIN RATIO 1.2 (1.0-2.2); BILIRUBIN,TOTAL 2.2 mg/dL (0.2-1.0); CREATININE 0.9 mg/dL (0.6-1.2); TOTAL PROTEIN 7.1 g/dL (6.7-8.2)
[2017-12-21] MEDS: FORMOTEROL FUMARATE NEB 20 MCG/2 ML INH SCH ×3 (05:51→18:13)
[2017-12-21] MEDS: BUDESONIDE 0.5 MG/2 ML NEB INH SCH ×3 (05:51→18:13)
[2017-12-21 05:54] LABS: PT - PROTHROMBIN TIME 11.1 secs (9.9-12.6)
[2017-12-21 05:55] LABS: % IRON SATURATION 50 % (20-50); IRON 232 ug/dL (45-182); TOTAL IRON BINDING CAPACITY 465 ug/dL (250-450); TRANSFERRIN 332 mg/dL (180-329)
[2017-12-21 06:11] LABS: FERRITIN 5.5 ng/mL (23.9-336.2)
[2017-12-21] MEDS ORDERED: ENOXAPARIN 40 MG/0.4 ML SYRINGE SUBQ SCH (09:00)
[2017-12-21] MEDS: ATORVASTATIN 40 MG TABLET PO SCH (10:07)
[2017-12-21] MEDS: ENALAPRIL 5 MG TABLET PO SCH (10:08)
[2017-12-21] MEDS: diltiaZEM CD 180 MG CAPSULE PO SCH (10:14)
[2017-12-21] MEDS: POLYETHYLENE GLYCOL 3350 17 GM PACKET PO SCH (10:15)
[2017-12-21] MEDS ORDERED: NICOTINE 21 MG PATCH TOP SCH (11:00)
[2017-12-21 12:22] LABS: BASOPHILS % (AUTO) 0.1 %; LYMPHOCYTES # (AUTO) 0.4 10^3/uL (1.5-3.5); MEAN CORPUSCULAR HEMOGLOBIN 22.3 pg (27.0-31.0); MEAN CORPUSCULAR HGB CONC 30.5 g/dL (32.0-36.0); MEAN PLATELET VOLUME 7.4 fL (7.4-11.4); MONOCYTES # (AUTO) 0.5 10^3/uL (0.0-1.0); MONOCYTES % (AUTO) 3.7 %; NEUTROPHILS # (AUTO) 12.9 10^3/uL (1.5-6.6); NEUTROPHILS % (AUTO) 93.2 %; PLT - PLATELET COUNT 324 10^3/uL (130-450); RED BLOOD COUNT 4.04 10^6/uL (4.70-6.10); RED CELL DISTRIBUTION WIDTH 20.2 % (12.0-15.0); WHITE BLOOD COUNT 13.9 x10^3/uL (4.8-10.8)
--- NOTE | 2017-12-21 12:50 | PROVIDER PROGRESS NOTE ---
Subjective - Prog Note Date Prog Note Date: 12/21/17 - Subjective Pt reports feeling: Improved Subjective: pt report he breath better. Pt is transfusion of 2 units of blood. Pt tells me he declines to have EGD and colonoscopy at this time. Pt report no acute GI bleeding now. No CP, fever,and chill. Current Medications - Current Medications Current Medications: Active Medications Acetaminophen (Tylenol) 650 mg PO Q4HR PRN PRN Reason: Pain 1 to 4 Albuterol () 2.5 mg INH Q4HR PRN PRN Reason: Wheezing Last Admin: 12/21/17 10:39 Dose: 2.5 mg Atorvastatin Calcium (Lipitor) 40 mg PO DAILY [facility] Last Admin: 12/21/17 10:07 Dose: 40 mg Budesonide (Pulmicort) 0.5 mg INH RTBID [facility] Last Admin: 12/21/17 10:47 Dose: Not Given Diltiazem HCl (Cardizem Cd) 180 mg PO DAILY [facility] Last Admin: 12/21/17 10:14 Dose: 180 mg Enalapril Maleate (Vasotec) 5 mg PO DAILY [facility] Last Admin: 12/21/17 10:08 Dose: 5 mg Fluticasone Propionate (Flonase) 0 sprays BHUPINDER QPM PRN PRN Reason: ALLERGIC RHINITIS Formoterol Fumarate (Perforomist) 20 mcg INH RTBID [facility] Last Admin: 12/21/17 10:47 Dose: Not Given Guaifenesin (Mucinex) 600 mg PO BID PRN PRN Reason: CONGESTION Morphine Sulfate (Morphine) 2 mg IVP Q2H PRN PRN Reason: Pain 8 to 10 Nicotine (Nicoderm) 1 patch TOP Q24H [facility] Last Admin: 12/21/17 10:53 Dose: 1 patch Ondansetron HCl (Zofran Inj) 4 mg IVP Q6HR PRN PRN Reason: Nausea / Vomiting Oxycodone HCl (Roxicodone) 5 mg PO Q4HR PRN PRN Reason: Pain 5 to 7 Oxycodone HCl (Roxicodone) 10 mg PO Q4HR PRN PRN Reason: Pain 8 to 10 Pantoprazole Sodium (Protonix) 40 mg IVP BID [facility] Last Admin: 12/21/17 10:08 Dose: 40 mg Polyethylene Glycol (Miralax) 17 gm PO DAILY [facility] Last Admin: 05/19/18 10:15 Dose: Not Given Prochlorperazine Edisylate (Compazine Inj) 10 mg IVP Q6HR PRN PRN Reason: Nausea / Vomiting Promethazine HCl (Phenergan Inj) 25 mg IM Q6HR PRN PRN Reason: Nausea / Vomiting Sodium Chloride (Normal Saline Flush 0.9%) 10 ml IVP PRN PRN PRN Reason: NEEDED PER PROVIDER ORDERS Sodium Chloride (Normal Saline Flush 0.9%) 10 ml IVP 0100,0900,1700 [facility] Last Admin: 12/21/17 10:08 Dose: 10 ml Zolpidem Tartrate (Ambien) 5 mg PO QPM PRN PRN Reason: Insomnia Albuterol [Proventil Hfa] 2 puffs INH Q4H PRN 12/18/12 Tiotropium [Spiriva] 1 puffs INH DAILY 12/18/12 Albuterol 3 ml INH 5XD PRN 09/15/16 Fluticasone [Flonase] 2 sprays BHUPINDER QPM PRN 09/15/16 Omeprazole [PriLOSEC] 20 mg PO QDAC 01/31/17 Fluticasone/Salmeterol [Advair 500-50 Diskus] 1 puffs INH BID 05/11/17 Diltiazem HCl [Diltiazem ER] 180 mg PO DAILY 09/03/17 Enalapril [Vasotec] 5 mg PO DAILY 09/03/17 Acetaminophen/Diphenhydramine [Tylenol Pm Ex-Strength Caplet] 1 tab PO QPM PRN 09/04/17 Atorvastatin [Lipitor] 40 mg PO DAILY 12/20/17 Clopidogrel [Plavix] 75 mg PO DAILY 12/20/17 Aspirin [Aspirin EC] 81 mg PO DAILY 12/21/17 Roflumilast [Daliresp] 500 mcg PO DAILY 12/21/17 Tamsulosin [Flomax] 0.4 mg PO DAILY 12/21/17 Objective - Vital Signs/Intake & Output Reviewed Vital Signs: Yes Vital Signs: Vital Signs x48h Temp Pulse Pulse Resp BP BP Pulse Ox 12/21/17 10:20 84 20 12/21/17 09:33 37.1 C 97 20 146/74 H 05/19/18 07:53 37.0 C 85 20 148/83 H 95 12/21/17 07:03 36.8 C 85 18 134/73 H 12/21/17 06:45 37 C 87 16 135/77 H 12/21/17 06:12 36.8 C 88 18 135/73 H 93 12/21/17 05:55 88 12 Intake & Output: Intake & Output 12/18/17 12/19/17 12/20/17 12/21/17 23:59 23:59 23:59 23:59 Intake Total 1160 Output Total 100 Balance 1060 - Objective General Appearance: positive: No acute distress, Alert. negative: Lethargic Eyes Bilateral: positive: Normal inspection, PERRL, No lid inflammation, Conjunctivae nml ENT: positive: ENT inspection nml, Pharynx nml, No signs of dehydration. negative: Purulent nasal drainage, Pharyngeal erythema, Oral lesions Neck: positive: Nml inspection, Thyroid nml, No JVD, Trachea midline. negative : Thyromegaly, Lymphadenopathy (R), Lymphadenopathy (L), Stiff neck, Carotid bruit, Swelling/bruising, Tracheal deviation Respiratory: positive: Chest non-tender, No respiratory distress, Other ( reduced lung bilaterally). negative: Wheezes, Rales Cardiovascular: positive: Regular rate & rhythm, No murmur, No gallop. negative : Irregularly irregular, Extrasystoles, Tachycardia, Bradycardia, JVD present, Systolic murmur, Diastolic murmur Peripheral Pulses: 2+ Radial (R), 2+ Radial (L), 2+ Dorsalis pedis (R), 2+ Dorsalis pedis (L) Abdomen: positive: Non-tender, No organomegaly, Nml bowel sounds, No distention. negative: Tenderness, Guarding, Rebound Back: positive: Nml inspection. negative: CVA tenderness (R), CVA tenderness (L ) Skin: positive: Color nml, No rash, Warm, Dry. negative: Cyanosis, Diaphoresis , Pallor Extremities: positive: Non-tender, Full ROM, Nml appearance. negative: Calf tenderness, Joint swelling, Darnell's sign/cords Neurologic/Psychiatric: positive: Oriented x3, Motor nml, Sensation nml, Mood/ affect nml. negative: Sensory loss, Facial droop, Slurred/abnml speech, Depressed mood/affect - Lab Results Fish Bones: 12/21/17 12:00 12/21/17 04:55 Other Labs: Lab Results x24hrs 12/21/17 12/21/17 12/21/17 Range/Units 12:00 04:55 04:55 WBC 13.9 H (4.8-10.8) x10^3/uL RBC 4.04 L (4.70-6.10) 10^6/uL Hgb 9.0 L (14.0-18.0) g/dL Hct 29.5 L (42.0-52.0) % MCV 73.0 L (80.0-94.0) fL MCH 22.3 L (27.0-31.0) pg MCHC 30.5 L (32.0-36.0) g/dL RDW 20.2 H (12.0-15.0) % Plt Count 324 (130-450) 10^3/uL MPV 7.4 (7.4-11.4) fL Neut # 12.9 H (1.5-6.6) 10^3/uL Lymph # 0.4 L (1.5-3.5) 10^3/uL [place] # 0.5 (0.0-1.0) 10^3/uL Eos # 0.0 (0.0-0.7) 10^3/uL Baso # 0.0 (0.0-0.1) 10^3/uL Absolute Nucleated RBC 0.04 x10^3/uL Nucleated RBC % 0.3 /100WBC PT (9.9-12.6) secs INR (0.8-1.2) Sodium (135-145) mmol/L Potassium (3.5-5.0) mmol/L Chloride (101-111) mmol/L Carbon Dioxide (21-32) mmol/L Anion Gap (6-13) BUN (6-20) mg/dL Creatinine (0.6-1.2) mg/dL Estimated GFR (MDRD) (>89) Glucose (70-100) mg/dL Calcium (8.5-10.3) mg/dL Iron (45-182) ug/dL TIBC (250-450) ug/dL % Saturation (20-50) % Transferrin (180-329) mg/dL Ferritin 5.5 L (23.9-336.2) ng/mL Total Bilirubin (0.2-1.0) mg/dL AST (10-42) IU/L ALT (10-60) IU/L Alkaline Phosphatase (42-121) IU/L Total Protein (6.7-8.2) g/dL Albumin (3.2-5.5) g/dL Globulin (2.1-4.2) g/dL Albumin/Globulin Ratio (1.0-2.2) Vitamin B12 230 (180-914) pg/mL Folate 7.16 (5.90 - >24.8) ng/mL 12/21/17 12/21/17 12/21/17 Range/Units 04:55 04:55 04:55 WBC 10.5 (4.8-10.8) x10^3/uL RBC 3.73 L (4.70-6.10) 10^6/uL Hgb 8.0 L (14.0-18.0) g/dL Hct 26.8 L (42.0-52.0) % MCV 71.9 L (80.0-94.0) fL MCH 21.4 L (27.0-31.0) pg MCHC 29.8 L (32.0-36.0) g/dL RDW 19.6 H (12.0-15.0) % Plt Count 305 (130-450) 10^3/uL MPV 7.5 (7.4-11.4) fL Neut # 10.1 H (1.5-6.6) 10^3/uL Lymph # 0.3 L (1.5-3.5) 10^3/uL [place] # 0.1 (0.0-1.0) 10^3/uL Eos # 0.0 (0.0-0.7) 10^3/uL Baso # 0.0 (0.0-0.1) 10^3/uL Absolute Nucleated RBC 0.01 x10^3/uL Nucleated RBC % 0.1 /100WBC PT (9.9-12.6) secs INR (0.8-1.2) Sodium 141 (135-145) mmol/L Potassium 4.2 (3.5-5.0) mmol/L Chloride 102 (101-111) mmol/L Carbon Dioxide 32 (21-32) mmol/L Anion Gap 7.0 (6-13) BUN 23 H (6-20) mg/dL Creatinine 0.9 (0.6-1.2) mg/dL Estimated GFR (MDRD) 82 L (>89) Glucose 157 H (70-100) mg/dL Calcium 9.0 (8.5-10.3) mg/dL Iron 232 H (45-182) ug/dL TIBC 465 H (250-450) ug/dL % Saturation 50 (20-50) % Transferrin 332 H (180-329) mg/dL Ferritin (23.9-336.2) ng/mL Total Bilirubin 2.2 H (0.2-1.0) mg/dL AST 18 (10-42) IU/L ALT 13 (10-60) IU/L Alkaline Phosphatase 73 (42-121) IU/L Total Protein 7.1 (6.7-8.2) g/dL Albumin 3.8 (3.2-5.5) g/dL Globulin 3.3 (2.1-4.2) g/dL Albumin/Globulin Ratio 1.2 (1.0-2.2) Vitamin B12 (180-914) pg/mL Folate (5.90 - >24.8) ng/mL 12/21/17 12/20/17 Range/Units 04:55 23:30 WBC 13.2 H (4.8-10.8) x10^3/uL RBC 3.49 L (4.70-6.10) 10^6/uL Hgb 6.9 L* (14.0-18.0) g/dL Hct 24.5 L (42.0-52.0) % MCV 70.1 L (80.0-94.0) fL MCH 19.8 L (27.0-31.0) pg MCHC 28.2 L (32.0-36.0) g/dL RDW 18.4 H (12.0-15.0) % Plt Count 340 (130-450) 10^3/uL MPV 6.9 L (7.4-11.4) fL Neut # 12.0 H (1.5-6.6) 10^3/uL Lymph # 0.5 L (1.5-3.5) 10^3/uL [place] # 0.6 (0.0-1.0) 10^3/uL Eos # 0.1 (0.0-0.7) 10^3/uL Baso # 0.0 (0.0-0.1) 10^3/uL Absolute Nucleated RBC 0.00 x10^3/uL Nucleated RBC % 0.0 /100WBC PT 11.1 (9.9-12.6) secs INR 1.0 (0.8-1.2) Sodium (135-145) mmol/L Potassium (3.5-5.0) mmol/L Chloride (101-111) mmol/L Carbon Dioxide (21-32) mmol/L Anion Gap (6-13) BUN (6-20) mg/dL Creatinine (0.6-1.2) mg/dL Estimated GFR (MDRD) (>89) Glucose (70-100) mg/dL Calcium (8.5-10.3) mg/dL Iron (45-182) ug/dL TIBC (250-450) ug/dL % Saturation (20-50) % Transferrin (180-329) mg/dL Ferritin (23.9-336.2) ng/mL Total Bilirubin (0.2-1.0) mg/dL AST (10-42) IU/L ALT (10-60) IU/L Alkaline Phosphatase (42-121) IU/L Total Protein (6.7-8.2) g/dL Albumin (3.2-5.5) g/dL Globulin (2.1-4.2) g/dL Albumin/Globulin Ratio (1.0-2.2) Vitamin B12 (180-914) pg/mL Folate (5.90 - >24.8) ng/mL ABX Reporting Has patient been on IV antibiotics over the past 48 hours?: No Assessment/Plan - Problem List (1) GI bleeding Impression: Conclusion/Plan: finish the transfusion of 2 units of blood. Pt decline to have EGD or colonoscopy H&H called pt's staff developer, but no response call yet. Will call again for recommendation if stopping Plavix, since pt had Plavix since he had cardiac stents on 05/2018. The patient presented to the emergency department with increasing shortness of breath over the last 4 days. The patient was also experiencing dizziness and fatigue. The patient initially thought that it was his COPD but it was not getting better despite being started on steroids, antibiotics and increased neb treatments. On presentation to the emergency department the patient was found to have a hemoglobin of 6.9 and had a positive stool guaiac. The patient has multiple risk factors for GI bleed. Including history of previous GI bleed from 2 AV malformations in the cecum. He also has history of tobacco abuse, is on Plavix for recent coronary artery stent in May 2017, is on steroids with prednisone and up until recently was using aspirin. Given the patient has not been having bright red blood cells likely a slow chronic bleed from an upper GI source. However given his history of AV malformations that cannot be completely ruled out. Plan: Transfuse 2 units of packed RBCs Monitor H&H every 6 IV Protonix twice daily for at least 24 hours Patient is refusing colonoscopy and EGD at this time therefore we will not consult surgery and treat him conservatively with transfusions and monitoring as well as Protonix. We will hold the patient's Plavix but given that he has had stents within the last year we will need to continue Plavix as soon as bleeding is stable. We will hold the patient's prednisone given his active GI bleeding. We will use SCDs for DVT prophylaxis Patient will be advised to quit smoking and avoid NSAIDs (2) COPD (chronic obstructive pulmonary disease) Conclusion/Plan: 95% Sats on 6 liter of O2, stable as home continue O2 supplement continue INH treatment Palliative care consult as inpatient versus outpatient continue vital monitor Patient has end-stage COPD and is on 6 L of oxygen at home. He has chronic respiratory failure. Patient presented with shortness of breath but this appears to be secondary to anemia. The patient's lung exam revealed upper airway crackles and decreased breath sounds in the lower lungs but no active wheezing. The patient has not been improving with steroids, antibiotics and nebulizer treatments. His shortness of breath seems to be secondary to anemia and his severe COPD. Plan: Patient will be continued on nebulizer treatments with albuterol every 4 hours as needed Patient will be placed on budesonide and formoterol twice daily while he is hospitalized Patient will be continued on his home dose of oxygen We will hold prednisone given active GI bleeding We will continue azithromycin Saturday Palliative care consult as inpatient versus outpatient (3) Hx of coronary artery disease Conclusion/Plan: continue to contact pt's staff developer to determine if pt need to be continued on Plavix The patient has a history of coronary artery disease status post stent in May 2017. Patient is currently on Plavix given his recent stent. Assuming that it was a drug-eluting stent the patient will need to be continued on Plavix for 1 year. The patient does not appear to be having a brisk GI bleed and rather he appears to have a slow chronic GI bleed. For now the patient's Plavix will be held until we transfuse him and hemoglobin remained stable. Given how recent his stents were the patient will need to continue on Plavix but will have to be monitored closely for any further bleeding. Patient is not currently having any chest pain and troponin and EKG were negative on presentation. (4) HTN (hypertension) Conclusion/Plan: stable, continue treatment. The patient's blood pressure is well controlled on presentation he will be continued on his home medications and we will continue to monitor his blood pressure Stable (5) Hyperlipidemia Conclusion/Plan: The patient has history of hyperlipidemia and is on statin at home. We will continue his home dose of statin. Stable (6) Tobacco abuse Conclusion/Plan: add Nicotin patch, consult pt quit cigarette smoking The patient has a history of tobacco abuse and continues to smoke. The patient states that he is not interested in smoking. We did talk to him about the risks of continued smoking including worsening of his COPD and increased risk of further coronary artery disease. Also spoke to him about smoking and relationship with GI bleeds. The patient was interested in having a nicotine patch and states he has cut down his smoking but is not interested in stopping. (7) Hypokalemia Conclusion/Plan: resolved On presentation patient's potassium is 3.0 The patient is not on Lasix it is unclear as to why his potassium is low at this time We will replace potassium and continue to monitor. Qualifiers: GI bleed type/associated pathology: unspecified gastrointestinal hemorrhage type Qualified Code(s): K92.2 - Gastrointestinal hemorrhage, unspecified
[2017-12-21 14:10] LABS: HGB - HEMOGLOBIN 9.1 g/dL (14.0-18.0)
[2017-12-21 17:27] LABS: BASOPHILS % (AUTO) 0.1 %; HGB - HEMOGLOBIN 8.4 g/dL (14.0-18.0); LYMPHOCYTES # (AUTO) 0.7 10^3/uL (1.5-3.5); LYMPHOCYTES % (AUTO) 4.2 %; MEAN CORPUSCULAR HEMOGLOBIN 21.6 pg (27.0-31.0); MEAN CORPUSCULAR HGB CONC 29.8 g/dL (32.0-36.0); MEAN CORPUSCULAR VOLUME 72.4 fL (80.0-94.0); MEAN PLATELET VOLUME 7.6 fL (7.4-11.4); MONOCYTES # (AUTO) 1.9 10^3/uL (0.0-1.0); MONOCYTES % (AUTO) 10.7 %; NEUTROPHILS # (AUTO) 14.8 10^3/uL (1.5-6.6); PLT - PLATELET COUNT 318 10^3/uL (130-450); RED BLOOD COUNT 3.89 10^6/uL (4.70-6.10); RED CELL DISTRIBUTION WIDTH 20.4 % (12.0-15.0); WHITE BLOOD COUNT 17.4 x10^3/uL (4.8-10.8)
[2017-12-21 18:15] LABS: PLATELET ESTIMATE, MANUAL NORMAL (130-450,000) (NORMAL); PLATELET MORPHOLOGY NORMAL APPEARANCE (NORMAL)
--- NOTE | 2017-12-21 19:51 | XRAY Report ---
EXAM: CHEST RADIOGRAPHY EXAM DATE: 12/21/2017 07:31 PM. CLINICAL HISTORY: Shortness of breath COMPARISON: Chest x-ray 10/19/2017. TECHNIQUE: 1 view. FINDINGS: Lungs/Pleura: Hyperinflated chest with some basilar patchy and linear opacities. No pneumothorax or p leural effusion. Mediastinum: Within exam limitations, the cardiomediastinal contour is normal. Other: None. IMPRESSION: Hyperinflation suggesting underlying emphysema or reactive airways disease with basilar p atchy and linear opacities, likely atelectasis. [facility] Referring Provider Line: [phone] SITE ID: [id number]
[2017-12-21 20:31] LABS: BILIRUBIN,URINE NEGATIVE (NEGATIVE); GLUCOSE, URINE (UA) NEGATIVE (NEGATIVE); KETONES,URINE (UA) NEGATIVE (NEGATIVE); LEUKOCYTE ESTERASE, URINE NEGATIVE (NEGATIVE); NITRITE,URINE NEGATIVE (NEGATIVE); OCCULT BLOOD,URINE NEGATIVE (NEGATIVE); PROTEIN,URINE 30 mg/dL (NEGATIVE); UROBILINOGEN,URINE 0.2 (NORMAL) E.U./dL (NORMAL)
[2017-12-21 20:49] LABS: BACTERIA,URINE None Seen /HPF (None Seen); CLARITY,URINE CLEAR (CLEAR); RBC,URINE 0-5 /HPF (0-5); SQUAMOUS EPITHELIAL CELL,UR RARE Squamous (<= Few)
[2017-12-21 20:50] LABS: AMORPHOUS SEDIMENT,UR Rare /LPF; MUCUS,URINE Marked Strands; SPERM,URINE PRESENT
[2017-12-21] MEDS: predniSONE 20 MG TABLET PO SCH (21:42)
[2017-12-21 23:50] LABS: BASOPHILS % (AUTO) 0.1 %; HGB - HEMOGLOBIN 8.4 g/dL (14.0-18.0); LYMPHOCYTES # (AUTO) 0.8 10^3/uL (1.5-3.5); LYMPHOCYTES % (AUTO) 5.1 %; MEAN CORPUSCULAR HEMOGLOBIN 21.9 pg (27.0-31.0); MEAN CORPUSCULAR HGB CONC 30.3 g/dL (32.0-36.0); MEAN CORPUSCULAR VOLUME 72.4 fL (80.0-94.0); MEAN PLATELET VOLUME 7.6 fL (7.4-11.4); MONOCYTES # (AUTO) 1.2 10^3/uL (0.0-1.0); MONOCYTES % (AUTO) 7.3 %; NEUTROPHILS # (AUTO) 13.9 10^3/uL (1.5-6.6); NEUTROPHILS % (AUTO) 87.5 %; PLT - PLATELET COUNT 289 10^3/uL (130-450); RED BLOOD COUNT 3.83 10^6/uL (4.70-6.10); RED CELL DISTRIBUTION WIDTH 20.2 % (12.0-15.0); WHITE BLOOD COUNT 15.9 x10^3/uL (4.8-10.8)
[2017-12-22] MEDS: SODIUM CHLORIDE FLUSH 0.9% 10 ML SYRINGE IVP SCH ×2 (00:51→08:25)
[2017-12-22] MEDS: ALBUTEROL NEB 2.5 MG/3 ML INH PRN ×3 (01:54→10:01)
[2017-12-22 05:15] LABS: ALBUMIN 3.6 g/dL (3.2-5.5); ALBUMIN/GLOBULIN RATIO 1.2 (1.0-2.2); BILIRUBIN,TOTAL 0.3 mg/dL (0.2-1.0); CALCIUM 9.2 mg/dL (8.5-10.3); CREATININE 0.8 mg/dL (0.6-1.2); TOTAL PROTEIN 6.7 g/dL (6.7-8.2)
[2017-12-22 05:22] LABS: BASOPHILS % (AUTO) 0.1 %; HGB - HEMOGLOBIN 8.5 g/dL (14.0-18.0); LYMPHOCYTES # (AUTO) 0.6 10^3/uL (1.5-3.5); LYMPHOCYTES % (AUTO) 3.8 %; MEAN CORPUSCULAR HEMOGLOBIN 21.3 pg (27.0-31.0); MEAN CORPUSCULAR HGB CONC 29.5 g/dL (32.0-36.0); MEAN CORPUSCULAR VOLUME 72.3 fL (80.0-94.0); MEAN PLATELET VOLUME 7.5 fL (7.4-11.4); MONOCYTES # (AUTO) 0.7 10^3/uL (0.0-1.0); MONOCYTES % (AUTO) 4.5 %; NEUTROPHILS # (AUTO) 13.4 10^3/uL (1.5-6.6); NEUTROPHILS % (AUTO) 91.6 %; PLT - PLATELET COUNT 310 10^3/uL (130-450); RED BLOOD COUNT 4.01 10^6/uL (4.70-6.10); RED CELL DISTRIBUTION WIDTH 20.3 % (12.0-15.0); WHITE BLOOD COUNT 14.6 x10^3/uL (4.8-10.8)
[2017-12-22 08:00] VITALS: BP 125/66
[2017-12-22] MEDS: diltiaZEM CD 180 MG CAPSULE PO SCH (08:24)
[2017-12-22] MEDS: ATORVASTATIN 40 MG TABLET PO SCH (08:25)
[2017-12-22] MEDS: PANTOPRAZOLE 40 MG VIAL IVP SCH (08:25)
[2017-12-22] MEDS: ENALAPRIL 5 MG TABLET PO SCH (08:25)
[2017-12-22] MEDS: predniSONE 20 MG TABLET PO SCH (08:27)
[2017-12-22] MEDS: POLYETHYLENE GLYCOL 3350 17 GM PACKET PO SCH (08:29)
[2017-12-22] MEDS ORDERED: TAMSULOSIN 0.4 MG CAPSULE PO SCH (09:00)
[2017-12-22] MEDS: BUDESONIDE 0.5 MG/2 ML NEB INH SCH (09:55)
[2017-12-22] MEDS: FORMOTEROL FUMARATE NEB 20 MCG/2 ML INH SCH (09:56)
--- NOTE | 2017-12-22 10:37 | Discharge Plan ---
Discharge Plan Disposition: 01 Home, Self Care Condition: Poor Diet: Regular Activity Restrictions: Activity as Tolerated Shower Restrictions: No (caregiver closely monitor, fall precaution) Weight Bearing: Full Weight Instruction Topics: Clopidogrel Bisulfate Oral tablet, Bleeding Gastrointestinal, COPD Additional Instructions or Follow Up instructions: You may follow up your PCP 2-3 days, and your form press operator in one week. You decline EGD and Colonoscopy in this time hospitalization. Surgical Nurse Practitioner in [facility] advised holding your Plavix until your form press operator see you. Should your symptoms return or worsen, you may present ER or call 911 for help. [facility]-Up Care: [facility], [facility] No Smoking: If you smoke, Please STOP! Call for help. Follow-up with: Cynthia Lake PA-C [Primary Care Provider] -
--- NOTE | 2017-12-22 10:46 | DISCHARGE SUMMARY ---
"Discharge Summary Discharge Date: 12/22/17 Discharging Provider: CISNEROS Condition at Discharge: Poor Discharge Disposition: 01 Home, Self Care Discharge Facility Name: home - DIAGNOSES Admission Diagnoses: (1) GI bleeding (2) COPD (chronic obstructive pulmonary disease) (3) Hx of coronary artery disease (4) HTN (hypertension) (5) Hyperlipidemia (6) Tobacco abuse (7) Hypokalemia Discharge Diagnoses with Status of Each Condition: (1) GI bleeding resolved. No acute bleeding at hospital. pt decline EGD and colonoscopy. Pt's Plavix is holding per [facility] public policy analyst Dr. Hays's recommendation until pt is seen by his public policy analyst. Pt had 2 units of blood. HGB is 8.5 and stable. Pt is asymptomatic and hemodynamic stable. (2) COPD (chronic obstructive pulmonary disease) stable, resume home regime. continue to be managed by PCP (3) Hx of coronary artery disease stable. continue to be managed by PCP and public policy analyst Hold Plavix, per public policy analyst recommendation, until pt is seen by his public policy analyst (4) HTN (hypertension) stable (5) Hyperlipidemia stable (6) Tobacco abuse advise pt quit. But pt is not ready to quit tobacco yet. (7) Hypokalemia resolved. - HPI History of Present Illness: referred from Dr. 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 The patient states that he has been experiencing shortness of breath off and on for a few weeks now but noticed that it became particularly worse over the last 4-5 days. He states that when he wakes up in the morning he does not feel too bad but as the day progresses he becomes more and more worn out. He states that just walking 10-15 feet he becomes out of breath. He denies any chest pain. He denies having had any wheezing. He states that he has been using his rescue inhaler and his daily Advair and Spiriva without any improvement of his symptoms. He states he has been using more and more of his albuterol over the last 2 days but has not noticed any improvement. He states that he has noticed that he has had increased dizziness the last 2 days. He states that he gets sweaty when he gets short of breath. He however denies any blood in his stools or dark tarry stools. The patient was placed on a tapered dose of prednisone for 1 week which he has been taking but has not improved his symptoms. The patient denies any abdominal pain or change in his appetite. The patient states that he continues to smoke. He denies any alcohol use. He denies any NSAID use. He states he has stopped taking aspirin. Today he states that his shortness of breath just became so severe that he decided to come into the emergency department. The patient denies any headaches, blurred vision, runny nose, sore throat, nasal congestion, difficulty swallowing, orthopnea, PND, increased lower extremity swelling, nausea, vomiting, diarrhea, constipation, urinary urgency, urinary frequency, dysuria, polyuria, polydipsia, increased joint pain, joint swelling, muscle aches, back pain, neck stiffness, hair loss, skin changes, recent unintentional weight loss or weight gain, night sweats or any focal neurologic deficits. On presentation to the emergency department the patient was afebrile and mildly tachycardic with a heart rate of 98. He was saturating around 91% on 6 L. The patient was tachypneic and did appear to be in some respiratory distress. The patient underwent some routine lab work which did reveal a mild leukocytosis with a hemoglobin of 6.9. The patient's previous hemoglobin from 4 months ago was 9.6 and prior to that patient's hemoglobins were in the 12-13 range. The patient was also noted to have hypokalemia with a potassium of 3.0 and an elevated glucose of 152. The patient EKG showed sinus rhythm without any ST elevations or ischemic changes. The patient did not undergo chest x-ray once he was found to be anemic. The patient's troponin was less than 0.04 and his BNP was normal. The patient's stool guaiac was positive in the emergency department. The patient was admitted for GI bleed and will need transfusion and monitoring. The patient states that he does not want EGD or colonoscopy at this time. - CONSULTS | PROCEDURES Consultations: [facility] Procedures: hold Plavix until pt is seen by his public policy analyst - ALLERGIES Allergies/Adverse Reactions: Allergies Allergy/AdvReac Type Severity Reaction Status Date / Time penicillin G Allergy Unknown Rash Verified 05/11/17 21:44 Penicillins Allergy Rash Verified 12/20/17 20:52 - MEDICATIONS Home Medications: Ambulatory Orders Medication Instructions Recorded Confirmed Albuterol [Proventil Hfa] 2 puffs INH Q4H PRN 12/18/12 12/21/17 Tiotropium [Spiriva] 1 puffs INH DAILY 12/18/12 12/21/17 Albuterol 3 ml INH 5XD PRN 09/15/16 12/21/17 Fluticasone [Flonase] 2 sprays BHUPINDER QPM PRN 09/15/16 12/21/17 Omeprazole [PriLOSEC] 20 mg PO QDAC 01/31/17 12/21/17 Fluticasone/Salmeterol [Advair 1 puffs INH BID 05/11/17 12/21/17 500-50 Diskus] Diltiazem HCl [Diltiazem ER] 180 mg PO DAILY 09/03/17 12/21/17 Enalapril [Vasotec] 5 mg PO DAILY 09/03/17 12/21/17 Acetaminophen/Diphenhydramine 1 tab PO QPM PRN 09/04/17 12/21/17 [Tylenol Pm Ex-Strength Caplet] Atorvastatin [Lipitor] 40 mg PO DAILY 12/20/17 12/21/17 Roflumilast [Daliresp] 500 mcg PO DAILY 12/21/17 12/21/17 Tamsulosin [Flomax] 0.4 mg PO DAILY 12/21/17 12/21/17 guaiFENesin [Mucinex] 600 mg PO BID 12/22/17 12/22/17 - PHYSICAL EXAM AT DISCHARGE General Appearance: positive: No acute distress, Alert. negative: Lethargic Eyes Bilateral: positive: Normal inspection, PERRL, No lid inflammation, Conjunctivae nml ENT: positive: ENT inspection nml, Pharynx nml, No signs of dehydration Neck: positive: Nml inspection, Thyroid nml, No JVD, Trachea midline. negative : Thyromegaly, Lymphadenopathy (R), Lymphadenopathy (L), Stiff neck, Swelling/ bruising, Tracheal deviation Respiratory: positive: Chest non-tender, No respiratory distress, Breath sounds nml. negative: Wheezes, Rales, Rhonchi Cardiovascular: positive: Regular rate & rhythm, No murmur, No gallop, Irregularly irregular. negative: Extrasystoles, Tachycardia, Bradycardia, JVD present, Systolic murmur, Diastolic murmur Peripheral Pulses: positive: 2+ Abdomen: positive: Non-tender, No organomegaly, Nml bowel sounds, No distention. negative: Tenderness, Guarding, Rebound Back: positive: Nml inspection. negative: CVA tenderness (R), CVA tenderness (L ) Skin: positive: Color nml, No rash, Warm, Dry. negative: Cyanosis, Diaphoresis , Pallor Extremities: positive: Full ROM, Nml appearance. negative: Calf tenderness, Joint swelling, Darnell's sign/cords Neurologic/Psychiatric: positive: Oriented x3, Motor nml, Sensation nml, Mood/ affect nml. negative: Weakness, Sensory loss, Facial droop, Slurred/abnml speech, Depressed mood/affect - LABS Result Diagrams: 12/22/17 04:50 12/22/17 04:50 - FOLLOW UP Follow Up: You may follow up your PCP 2-3 days, and your public policy analyst in one week. You decline EGD and Colonoscopy in this time hospitalization. [facility] in [facility] advised holding your Plavix until you is seen by your public policy analyst. Should your symptoms return or worsen, you may present ER or call 911 for help. [facility]-Up Care: [facility], [facility] - TIME SPENT Time Spent in Discharge (Minutes): 45"
== END 2017-12-22 11:41 | disposition home or self-care (01) | DRG 812 ==
LOC: EDUNIT# → ED 20:47 → MS3 23:12
PROVIDERS: ADMIT Internal Medicine; ATTEND Nurse Practitioner Gerontology
PROC: 30233N1 Transfusion of Nonautologous Red Blood Cells into Peripheral Vein, Percutaneous Approach (ICD-10-PCS; principal; 2017-12-21)
DX: D64.9 Anemia, unspecified (principal); K92.2 Gastrointestinal hemorrhage, unspecified; J44.9 Chronic obstructive pulmonary disease, unspecified; I25.10 Atherosclerotic heart disease of native coronary artery without angina pectoris; Z95.5 Presence of coronary angioplasty implant and graft; K21.9 Gastro-esophageal reflux disease without esophagitis; Z79.02 Long term (current) use of antithrombotics/antiplatelets; Z79.82 Long term (current) use of aspirin; E87.6 Hypokalemia; I10 Essential (primary) hypertension; E78.5 Hyperlipidemia, unspecified; Z99.81 Dependence on supplemental oxygen; H54.7 Unspecified visual loss; F17.210 Nicotine dependence, cigarettes, uncomplicated; Z66 Do not resuscitate
CPT/HCPCS: 36415; 71045; 80048; 80053; 81001; 82274; 82607; 82728; 82746; 83540; 83880; 84466; 84484; 85014; 85018; 85025; 85610; 86850; 86900; 86901; 86920; 87086; 93005; 94640; 96374; 99284

== ENCOUNTER 2017-12-28 20:24 | Outpatient (CLI) | payer MEDICARE, OTHER | END 2017-12-28 20:25 | disposition critical access hospital (66) | LOC: EMS 20:24 | PROVIDERS: ATTEND Surgery | DX: R06.00 Dyspnea, unspecified (principal) | CPT/HCPCS: A0425; A0427 ==

== ENCOUNTER 2017-12-28 20:47 | Emergency (ER) | payer MEDICARE, OTHER ==
--- NOTE | 2017-12-28 21:07 | ED Physician Documentation ---
PD HPI DYSPNEA - Stated complaint Stated Complaint: SOA - Chief complaint Chief Complaint: Resp - History obtained from History obtained from: Patient, Family, EMS - History of Present Illness Timing - onset: Enter time (12:00 (noon)), Today Timing - onset during: Light activity Timing - details: Gradual onset, Waxing and waning Pain level max: 0 Pain level now: 0 Improved by: O2, Inhaler/neb, Rest Worsened by: Exertion Similar symptoms before: Diagnosis (COPD) Recently seen: Admitted - Additional information Additional information: patient has COPD, uses 6 liters [place] oxygen. he was discharged from this hospital last week after RBC transfusion for anemia. He presents today c/o increasing dyspnea above baseline since noon today with inadequate response to his MDI and neb treatments. given duoneb en route Review of Systems Constitutional: denies: Fever, Chills, Sweats Cardiac: reports: Reviewed and negative Respiratory: reports: Dyspnea, Cough (baseline ("I always cough", per patient, but not worse than usual)), Wheezing. denies: Hemoptysis GI: reports: Reviewed and negative PD PAST MEDICAL HISTORY - Past Medical History Cardiovascular: Coronary artery disease Respiratory: COPD Endocrine/Autoimmune: None GI: GERD : None HEENT: Chronic vision loss Psych: None Musculoskeletal: None Derm: None - Past Surgical History Past Surgical History: Yes General: Cholecystectomy Cardiovascular: Coronary stent - Present Medications Home Medications: Ambulatory Orders Medication Instructions Recorded Confirmed Albuterol [Proventil Hfa] 2 puffs INH Q4H PRN 12/18/12 12/21/17 Tiotropium [Spiriva] 1 puffs INH DAILY 12/18/12 12/21/17 Albuterol 3 ml INH 5XD PRN 09/15/16 12/21/17 Fluticasone [Flonase] 2 sprays BHUPINDER QPM PRN 09/15/16 12/21/17 Omeprazole [PriLOSEC] 20 mg PO QDAC 01/31/17 12/21/17 Fluticasone/Salmeterol [Advair 1 puffs INH BID 05/11/17 12/21/17 500-50 Diskus] Diltiazem HCl [Diltiazem ER] 180 mg PO DAILY 09/03/17 12/21/17 Enalapril [Vasotec] 5 mg PO DAILY 09/03/17 12/21/17 Acetaminophen/Diphenhydramine 1 tab PO QPM PRN 09/04/17 12/21/17 [Tylenol Pm Ex-Strength Caplet] Atorvastatin [Lipitor] 40 mg PO DAILY 12/20/17 12/21/17 Roflumilast [Daliresp] 500 mcg PO DAILY 12/21/17 12/21/17 Tamsulosin [Flomax] 0.4 mg PO DAILY 12/21/17 12/21/17 guaiFENesin [Mucinex] 600 mg PO BID 12/22/17 12/22/17 predniSONE [Prednisone] 20 mg PO DAILY #12 tablet 12/28/17 - Allergies Allergies/Adverse Reactions: Allergies Allergy/AdvReac Type Severity Reaction Status Date / Time penicillin G Allergy Unknown Rash Verified 12/28/17 20:52 Penicillins Allergy Rash Verified 12/28/17 20:52 - Social History Does the pt smoke?: Yes Smoking Status: Current every day smoker Does the pt drink ETOH?: No Does the pt have substance abuse?: No - Immunizations Immunizations are current?: No - POLST Patient has POLST: No POLST Status: Full Code PD ED PE NORMAL - Vitals Vital signs reviewed: Yes - General General: Alert and oriented X 3, No acute distress, Well developed/nourished, Other (speaks in full sentences, NAD) - HEENT HEENT: Moist mucous membranes - Neck Neck: Supple, no meningeal sign - Cardiac Cardiac: RRR, No murmur - Respiratory Respiratory: No respiratory distress PD ED PE EXPANDED - Respiratory Respiratory: Wheezing (expiratory wheezes bilaterally all lung weiss). No: Rhonchi, Decreased breath sounds, Absent Breath Sounds Results - Vitals Vitals: Vital Signs - 24 hr 12/28/17 12/28/17 12/28/17 20:49 21:28 22:17 Temperature 36.7 C Heart Rate 109 H 89 85 Respiratory 22 17 17 Rate Blood Pressure 187/70 H 187/70 H 138/71 H O2 Saturation 95 97 99 12/28/17 22:50 Temperature 36.3 C L Heart Rate 84 Respiratory 20 Rate Blood Pressure 106/58 L O2 Saturation 99 Oxygen O2 Source [With Activity] 11L via oxymizer O2 Source [Without Activity] Oxymizer O2 Source Nasal cannula Oxygen Flow Rate 6 - EKG (time done) No standard instances Rate: Rate (enter#) (89) Rhythm: NSR Page: LAD Intervals: Normal [place] QRS: Normal Ischemia: Normal ST segments - Labs Labs: Laboratory Tests 12/28/17 12/28/17 12/28/17 20:56 20:56 20:56 WBC 12.3 H RBC 4.03 L Hgb 8.7 L Hct 30.0 L MCV 74.6 L MCH 21.5 L MCHC 28.9 L RDW 22.6 H Plt Count 292 MPV 7.9 Neut # 9.6 H Lymph # 1.4 L [place] # 1.0 Eos # 0.3 Baso # 0.1 Absolute Nucleated RBC 0.00 Nucleated RBC % 0.0 Manual Slide Review Indicated Platelet Estimate NORMAL (130-450,000) RBC Morph Micro Appear 1+ OVALOCYTES Sodium 137 Potassium 3.9 Chloride 98 L Carbon Dioxide 35 H Anion Gap 4.0 L BUN 20 Creatinine 0.8 Estimated GFR (MDRD) 94 Glucose 153 H Calcium 8.9 Troponin I < 0.04 B-Natriuretic Peptide 12/28/17 20:56 WBC RBC Hgb Hct MCV MCH MCHC RDW Plt Count MPV Neut # Lymph # Costilla # Eos # Baso # Absolute Nucleated RBC Nucleated RBC % Manual Slide Review Platelet Estimate RBC Morph Micro Appear Sodium Potassium Chloride Carbon Dioxide Anion Gap BUN Creatinine Estimated GFR (MDRD) Glucose Calcium Troponin I B-Natriuretic Peptide 55 PD MEDICAL DECISION MAKING - ED course Complexity details: reviewed old records, reviewed results, re-evaluated patient , considered differential, d/w patient, d/w family ED course: On reevaluation, after tests resulted, patient reports feeling well (at baseline ) and wants to go home. He speaks in full sentences and reexamination of lungs reveals residual end-expiratory wheezing bilaterally but good air flow Departure - Departure Disposition: Home, Self Care Clinical Impression: COPD (chronic obstructive pulmonary disease) Condition: Good Instructions: ED COPD Flare Prescriptions: predniSONE [Prednisone] 20 mg PO DAILY #12 tablet Discharge Date/Time: 12/28/17 22:53
[2017-12-28] MEDS ORDERED: DEXAMETHASONE 10 MG/ML VIAL IVP STA (21:19)
[2017-12-28 21:33] LABS: BASOPHILS # (AUTO) 0.1 10^3/uL (0.0-0.1); BASOPHILS % (AUTO) 0.4 %; EOSINOPHILS # (AUTO) 0.3 10^3/uL (0.0-0.7); EOSINOPHILS % (AUTO) 2.3 %; HGB - HEMOGLOBIN 8.7 g/dL (14.0-18.0); LYMPHOCYTES # (AUTO) 1.4 10^3/uL (1.5-3.5); LYMPHOCYTES % (AUTO) 11.3 %; MEAN CORPUSCULAR HEMOGLOBIN 21.5 pg (27.0-31.0); MEAN CORPUSCULAR HGB CONC 28.9 g/dL (32.0-36.0); MEAN CORPUSCULAR VOLUME 74.6 fL (80.0-94.0); MEAN PLATELET VOLUME 7.9 fL (7.4-11.4); MONOCYTES % (AUTO) 8.2 %; NEUTROPHILS # (AUTO) 9.6 10^3/uL (1.5-6.6); NEUTROPHILS % (AUTO) 77.8 %; PLT - PLATELET COUNT 292 10^3/uL (130-450); RED BLOOD COUNT 4.03 10^6/uL (4.70-6.10); RED CELL DISTRIBUTION WIDTH 22.6 % (12.0-15.0); WHITE BLOOD COUNT 12.3 x10^3/uL (4.8-10.8)
[2017-12-28 21:35] LABS: CALCIUM 8.9 mg/dL (8.5-10.3); CREATININE 0.8 mg/dL (0.6-1.2)
[2017-12-28 21:48] LABS: PLATELET ESTIMATE, MANUAL NORMAL (130-450,000) (NORMAL)
[2017-12-28 22:53] VITALS: BP 106/58
== END 2017-12-28 22:53 | disposition home or self-care (01) ==
LOC: EDUNIT# → ED 20:47
DX: J44.9 Chronic obstructive pulmonary disease, unspecified (principal); I25.10 Atherosclerotic heart disease of native coronary artery without angina pectoris; F17.200 Nicotine dependence, unspecified, uncomplicated; Z95.5 Presence of coronary angioplasty implant and graft
CPT/HCPCS: 36415; 80048; 83880; 84484; 85025; 93005; 96374; 99283; 99284

== ENCOUNTER 2018-01-01 14:56 | Outpatient (CLI) | payer MEDICARE, OTHER ==
[2018-01-01 18:59] LABS: BASOPHILS % (AUTO) 0.2 %; EOSINOPHILS % (AUTO) 0.2 %; HGB - HEMOGLOBIN 9.4 g/dL (14.0-18.0); LYMPHOCYTES # (AUTO) 0.4 10^3/uL (1.5-3.5); LYMPHOCYTES % (AUTO) 2.5 %; MEAN CORPUSCULAR HEMOGLOBIN 21.7 pg (27.0-31.0); MEAN CORPUSCULAR HGB CONC 28.9 g/dL (32.0-36.0); MEAN CORPUSCULAR VOLUME 75.1 fL (80.0-94.0); MEAN PLATELET VOLUME 8.1 fL (7.4-11.4); MONOCYTES # (AUTO) 0.5 10^3/uL (0.0-1.0); MONOCYTES % (AUTO) 3.1 %; NEUTROPHILS # (AUTO) 14.9 10^3/uL (1.5-6.6); PLT - PLATELET COUNT 291 10^3/uL (130-450); RED BLOOD COUNT 4.34 10^6/uL (4.70-6.10); RED CELL DISTRIBUTION WIDTH 23.5 % (12.0-15.0); WHITE BLOOD COUNT 15.8 x10^3/uL (4.8-10.8)
[2018-01-01 19:37] LABS: % IRON SATURATION 3 % (20-50); IRON 12 ug/dL (45-182); TOTAL IRON BINDING CAPACITY 456 ug/dL (250-450); TRANSFERRIN 326 mg/dL (180-329)
[2018-01-01 20:26] LABS: PLATELET ESTIMATE, MANUAL NORMAL (130-450,000) (NORMAL); PLATELET MORPHOLOGY NORMAL APPEARANCE (NORMAL)
== END 2018-01-01 14:57 | disposition home or self-care (01) ==
LOC: LAB.WCP 14:56
PROVIDERS: ATTEND Physician Assistant Medical
DX: D50.9 Iron deficiency anemia, unspecified (principal)
CPT/HCPCS: 36415; 82728; 83540; 84466; 85025

== ENCOUNTER 2018-01-16 10:17 | Outpatient (CLI) | payer MEDICARE, OTHER ==
[2018-01-16 12:22] LABS: BASOPHILS # (AUTO) 0.1 10^3/uL (0.0-0.1); BASOPHILS % (AUTO) 0.5 %; EOSINOPHILS # (AUTO) 0.3 10^3/uL (0.0-0.7); EOSINOPHILS % (AUTO) 2.9 %; HGB - HEMOGLOBIN 9.2 g/dL (14.0-18.0); LYMPHOCYTES # (AUTO) 0.9 10^3/uL (1.5-3.5); LYMPHOCYTES % (AUTO) 9.4 %; MEAN CORPUSCULAR HEMOGLOBIN 23.5 pg (27.0-31.0); MEAN CORPUSCULAR HGB CONC 30.4 g/dL (32.0-36.0); MEAN CORPUSCULAR VOLUME 77.4 fL (80.0-94.0); MEAN RETIC VALUE 103.3; MONOCYTES # (AUTO) 0.5 10^3/uL (0.0-1.0); MONOCYTES % (AUTO) 5.3 %; NEUTROPHILS # (AUTO) 7.8 10^3/uL (1.5-6.6); NEUTROPHILS % (AUTO) 81.9 %; PLT - PLATELET COUNT 228 10^3/uL (130-450); RED BLOOD COUNT 3.91 10^6/uL (4.70-6.10); WHITE BLOOD COUNT 9.5 x10^3/uL (4.8-10.8)
[2018-01-16 12:47] LABS: PLATELET ESTIMATE, MANUAL NORMAL (130-450,000) (NORMAL); PLATELET MORPHOLOGY NORMAL APPEARANCE (NORMAL)
[2018-01-16 12:57] LABS: FERRITIN 10.1 ng/mL (23.9-336.2)
[2018-01-16 13:00] LABS: FOLATE 9.55 ng/mL (5.90 - >24.8)
[2018-01-16 13:02] LABS: CALCIUM 9.2 mg/dL (8.5-10.3); CREATININE 0.8 mg/dL (0.6-1.2)
== END 2018-01-16 23:59 | disposition home or self-care (01) ==
LOC: LAB.WCP 10:17
PROVIDERS: ATTEND Physician Assistant Medical
DX: E87.6 Hypokalemia (principal); D50.9 Iron deficiency anemia, unspecified
CPT/HCPCS: 36415; 80048; 82607; 82728; 82746; 83540; 84466; 85025; 85044

== ENCOUNTER 2018-01-30 17:54 | Outpatient (CLI) | payer MEDICARE, OTHER ==
--- NOTE | 2018-01-30 18:54 | CONSULTATION NOTE ---
Palliative Care Consultation - Referral Referring Provider: Cynthia Lake PA-C Time of Visit: 01/30/2018. 9:40 - 11:10 Referral setting: Home (Seen in home setting due to taxing and considerable effort required to leave the home due to severe shortness of breath and being on continuous 6 L of oxygen secondary to end-stage COPD.) Referral Reason: Chronic SOB / Progressive End Stage COPD - Information Sources Records reviewed: Previous records reviewed History/Review of Systems obtained from: Patient, Family Exam limitations: No limitations - History of Present Illness Brief History of Present Illness: -Thank you, Cynthia Lake PA-C, for asking the palliative care consult service to be involved in the care of your patient. I am asked to provide support regarding progressive COPD, assistance with symptom management, and advanced care planning and transition to Hospice when appropriate. -77 year old male with severe, chronic shortness of air, secondary to end-stage COPD. He is on 6L oxygen via nasal cannula. -He and his plan to move to [facility], timeframe undecided, but they have already purchased a home there. 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 Sep 2016: S/P small bowel resection & anastomosis 2/2 bowel obstruction with perforation, declined EGD or colonoscopy. May 2017: [place] and [place] May 2017 was on Plavix, now on aspirin 81. Aug 2017: GI bleed and C dff December 2017: GI Bleed and anemia, RBC transfusion. Most recent ED visit was Dec 28 2017 for COPD exacerbation/increasing dyspnea. -His COPD is managed by PCP Cynthia Lake. -He is consulting with Dr Genie Patel in pulmonology. -He is being followed by Dr Fraser, hematology, for anemia. -He is scheduled for iron infusion tomorrow. His Hgb is 9.2, the goal is 12. -He is now off prednisone, due to his h/o GI problems. -His main complaint is increased SOB and fatigue. -He feels morphine has been one of the most useful medications for his SOA ( 0.125mL (2.5mg) morphine 20mg/mL Q8h prn. Dr Parimi wants him to limit his use of it -He does not think Trilogy helps any longer; previously he had felt very good after every treatment. He uses it during the day now, no longer at night due to drying out his mouth. Dr patel strongly encourages better compliance with Trilogy. -He uses his inhaled medications as prescribed, also finds they help. -He declines raising the head of bed for his SOB, or getting a hospital bed. He likes to sleep propped up on his forearm, it helps drain his sinuses. -He manages the SOA and fatigue by minimizing his activity, using the inhalers and morphine, and Trilogy sporadically. -Unfortunately he continues to smoke daily. Medical/Surgical History - Past Medical History Cardiovascular: reports: Coronary artery disease Respiratory: reports: COPD Neuro: reports: None Endocrine/Autoimmune: reports: None GI: reports: GERD, C.difficile : reports: None, Benign prostate hypertrophy HEENT: reports: Chronic vision loss Psych: reports: None Musculoskeletal: reports: None Derm: reports: None MRSA Hx?: No Other Past Medical History: Anemia, polycythemia - Past Surgical History General: reports: Cholecystectomy, Bowel surgery (bowel blockage) Cardiovascular: reports: Coronary stent (2017) - Substance History Dependence: Experiences withdrawal or developed tolerances: Tobacco (current smoker; 1 PPD x 60 years), Alcohol (Never uses) Social History - Living Situation Living arrangement: At home Living Situation: With spouse/s.o. Support System: His is his sole caregiver. 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 They have 4 sons, 2 live [place] of [place], 2 in [facility]. They plan to move to [facility], timeframe undecided. They have already purchased a home there. Family History - Family History Family History Comment/Other: Father age 88, stomach cancer. Mother age 89, gynecologic cancer. Medications/Allergies - Medications Home Medications: Ambulatory Orders Medication Instructions Recorded Confirmed Albuterol [Proventil Hfa] 2 puffs INH Q4H PRN 12/18/12 01/31/18 Tiotropium [Spiriva] 1 puffs INH DAILY 12/18/12 01/31/18 Albuterol 3 ml INH 5XD PRN 09/15/16 01/31/18 Fluticasone [Flonase] 2 sprays BHUPINDER QPM PRN 09/15/16 01/31/18 Omeprazole [PriLOSEC] 20 mg PO QDAC 01/31/17 01/31/18 Fluticasone/Salmeterol [Advair 1 puffs INH BID 05/11/17 01/31/18 500-50 Diskus] Diltiazem HCl [Diltiazem ER] 180 mg PO DAILY 09/03/17 01/31/18 Enalapril [Vasotec] 5 mg PO BID 09/03/17 01/31/18 Acetaminophen/Diphenhydramine 2 tab PO QPM PRN 09/04/17 01/31/18 [Tylenol Pm Ex-Strength Caplet] Atorvastatin [Lipitor] 40 mg PO DAILY 12/20/17 01/31/18 Roflumilast [Daliresp] 500 mcg PO DAILY 12/21/17 01/31/18 Tamsulosin [Flomax] 0.4 mg PO DAILY 12/21/17 01/31/18 guaiFENesin [Mucinex] 600 mg PO BID 12/22/17 01/31/18 Aspirin [Adult Low Dose Aspirin EC] 1 tab PO DAILY 01/28/18 01/31/18 Azithromycin 250 mg PO .M,W,F 01/28/18 01/31/18 Morphine Sulfate 0.125 ml PO Q8H PRN 01/28/18 01/31/18 Nitroglycerin 1 tab PO PRN PRN 01/28/18 01/31/18 - Allergies Allergies/Adverse Reactions: Allergies Allergy/AdvReac Type Severity Reaction Status Date / Time penicillin G Allergy Unknown Rash Verified 12/28/17 20:52 Penicillins Allergy Rash Verified 12/28/17 20:52 Review of Systems - Constitutional Constitutional: reports: Fatigue, Weight loss (Currently 206 lbs, down from 240 lbs. Has less appetite.) - Eyes Eyes: reports: Other (eye disease or injury, unspecified) - Ears, Nose & Throat Ears, Nose & Throat: reports: Hearing loss, Tinnitus, Postnasal drainage, Other (sinus problems) - Cardiovascular Cardiovascular: reports: Exertional dyspnea, Decr. exercise tolerance. denies: Palpitations, Chest pain - Respiratory Respiratory: reports: Other (doesn't like using Trilogy at night; dries his mouth out, doesn't think it makes any difference anymore.) - Gastrointestinal Gastrointestinal: reports: Diarrhea (loose stools, multiple times daily), Change in bowel habits, Poor appetite (less appetite than his normal baseline.) . denies: Constipation - Genitourinary Genitourinary: reports: Frequency. denies: Dysuria, Incontinence - Neurological Neurological: reports: Memory problems - Psychiatric Psychiatric: reports: Depression - Hematologic/Lymphatic Hematologic/Lymphatic: reports: Anemia, Bruising, Bleeding tendencies (now on aspirin) Physical Exam - Vital Signs Temperature: 96.8 F Pulse Rate: 91 O2 Saturation: 97 (on 6L O2) Blood Pressure: 129/85 - Physical Exam General Appearance: positive: No acute distress, Alert, Other (Prickly, easily roused) Eyes Bilateral: positive: No lid inflammation, Conjunctivae nml, No scleral icterus ENT: positive: No signs of dehydration Neck: positive: Trachea midline Cardiovascular: positive: Regular rate & rhythm Respiratory: positive: Diminished throughout (significantly), Rhonchi Abdomen: positive: Obese Skin: positive: No symptoms Extremities: positive: Pedal edema (1+) Neurologic/Psychiatric: positive: Oriented x3, Mood/affect nml Palliative Care - POLST Patient has POLST: Yes POLST Status: Full Code Pain: No pain Tiredness/Fatigue: Mild (1-3) Drowsiness/Sedation: None Nausea: None Anxiety: Mild (1-3) Dyspnea: Moderate (4-6) Anorexia: Mild (1-3) Feelings of wellbeing/Perceived Quality of Life: Fair Performance Status: Does his own ADLs, but he is confined to his chair most of the day, SOA with any exertion, can't lean forward or tilt his head forward without SOA. Unable to do any household tasks. Ambulatory Current smoker, no intention of quitting. - Palliative Care Discussion: -He and his have lived on [facility] since the . Two of their sons live south of [place], and two sons live in [facility]. The patient and his just purchased a home in [facility] [place], in [facility], about [place] from the [facility] ([place] One sone and his family live in [place], the other is nearby in [place]. Their great-grandchild, 4 years old, is in [place], she has a congenital kidney disease and is waiting for a kidney transplant. -Bringing up the subject of the move to [facility] seemed to hit a nerve. Patient displays reluctance to move there, though apparently he had originally agreed. -Discussed the plan since he can't participate in any of the actual move. Jesusita, his , states that the sons come over on the weekends. They haven't started packing yet, but we started the conversation about the plan, hiring movers, etc. They do not have a date set yet.; they still have to sell their house. -Patient's POLST is full code, he is "not ready to yet." He is agreeable to CPR and intubation for a limited time. He does not want a tracheostomy. He does not want long-term life support. He has been intubated three times in the past, two of whic were postop, and he has come off the ventilator within 2-3 days each time. The last ventilation was more than a year ago. -He does know his COPD is progressive and eventually terminal. He is agreeable to Hospice eventually, but wants to remain full code as long as there is a chance of reversing an acute condition. -He does not want to quit smoking. -He acknowledges that his is his DPOA. When I offered them DPOA papers, they declined. They may have them already, it is not clear. -I offered education on using morphine for respiratory crises and air hunger. There are times in the night he wakes up and cannot catch his breath and experiences air hunger, and he can't get back to sleep. I did health counselor that his low dose of morphine is appropriate at those times. I offered education and reassurance about his concern that he will become addicted to morphine. Impression and Recommendations - Palliative Care Impression: 77 year old male with severe, chronic shortness of air, secondary to end-stage COPD, on continuous 6L oxygen via nasal cannula. His SOB and fatigue is increasing, etiology COPD but also low RBC and anemia (Hgb 9.2). Iron transfusion is scheduled for tomorrow, he is hopeful this will alleviate the fatigue and SOA. Patient has his POLST which he wants to remain full code with the possibility of intubation, but does not want an extended period on life support, or tracheostomy. He is agreeable to Hospice eventually. He and his are in the early stages of planning and preparing a move to [facility] to be close to family, timeline is currently undetermined. Palliative care will monitor, providing support and symptom management and advance care planning. Recommendations/Counseling Done: End-stage COPD: Worsening. On 6L continuous oxygen. 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 Next pulmonology appointment is February 12, but managed overall by PCP. On Advair, albuterol nebulizer, Spiriva, roflumilast/Daliresp (to decrease occurrence of COPD exacerbations). Anemia/low RBCs: Hospitalized in December for GI bleed, had blood transfusion (2 pints). Iron transfusion is scheduled for 01/31. Goal is to get Hgb to 12 (it's 9.2). Next consultation with Dr Fraser in hemotology is February 25. SOA, chronic: Continue 6L O2, Trilogy (using it sporadically during day, not at night), and inhalers. Using morphine solution 20mg/mL 0.125ml (2.5mg) TID, and also may use for respiratory crises/SOA at night. Constipation: Denies. Has loose stools several times a day, doesn't know if it' s C diff. Is taking azithromycin 250mg M,,. CAD: Continue cardiac medications: diltiazem, enalapril and atorvastatin. BP today 129/85. Advanced care planning: POLST signed for full code, reviewed today with no changes. He does not want to be on ventilator long-term, no tracheostomy. He has been on ventilator 3x in the past, each time for only a few days. Last ventilation was over one year ago. Follow up visit: February 27 11:00 Time Spent: 90 minutes were spent with more than 50% of the time spent on counseling, education, and coordination of care.
== END 2018-01-30 17:55 | disposition home or self-care (01) ==
LOC: PC 17:54
PROVIDERS: ATTEND Nurse Practitioner
DX: Z51.5 Encounter for palliative care (principal); J44.9 Chronic obstructive pulmonary disease, unspecified; Z99.81 Dependence on supplemental oxygen; F17.210 Nicotine dependence, cigarettes, uncomplicated; D64.9 Anemia, unspecified; R19.4 Change in bowel habit; I25.10 Atherosclerotic heart disease of native coronary artery without angina pectoris; Z79.51 Long term (current) use of inhaled steroids; Z79.82 Long term (current) use of aspirin; Z79.2 Long term (current) use of antibiotics
CPT/HCPCS: 99345

== ENCOUNTER 2018-02-27 14:59 | Outpatient (CLI) | payer MEDICARE, OTHER ==
--- NOTE | 2018-02-27 20:52 | CONSULTATION NOTE ---
Palliative Care Follow Up - Referral Referring Provider: ANDREW Richardson Time of Visit: 02/27/2018. 11:15 - 12:25 Referral setting: Home (Seen in home setting due to taxing and considerable effort required to leave the home due to severe shortness of breath and being on continuous 6 L of oxygen secondary to end-stage COPD.) Referral Reason: Chronic SOA - Information Sources Records reviewed: Previous records reviewed History/Review of Systems obtained from: Patient, Family Exam limitations: No limitations - History of Present Illness Update Brief HPI Update: -77-year-old male with severe, chronic shortness of air and hypoxia, secondary to end-stage COPD. He is on 6 L oxygen via nasal cannula. 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 Sep 2016: S/P small bowel resection and [place] ecchymosis secondary to bowel obstruction reduction with perforation, declined EGD or colonoscopy. May 2017: [place] and cardiac stent, was on Plavix, now on aspirin 81. August 2017: GI bleed and C. difficile December 2017: GI bleed and anemia, RBC transfusion. December 2017: ED visit for COPD exacerbation/increasing dyspnea, -COPD managed by PCP Kemi Lake. -Consult team with Dr. Constantino para me in pulmonology. -Today the patient is doing much better than my initial visit, he says he is feeling very well thanks to two blood infusions, the most recent one being 2 weeks ago. -Hgb is 11.2, up from 9.2. The goal is 12. -His breathing hasn't improved, but his legs are much better, and he is enjoying increased ambulation and activity. -He is using his Trilogy about 4 hours a day. Ralph Kahn of [employer] is visiting him more frequently than previous representatives, and helping him with the ventilator. -Patient notes white colored phlegm whenever he smokes a cigarette. This is a new development. He has no desire or intention to quit smoking. -Performed O2 saturation testing: -96% on 6L O2 at rest -83% on room air, at rest, after 5-6 minutes -78% on room air after 1.5-2 minutes of exertion -Patient has been told by previous providers that his oxygen saturations while on O2 should be 93% maximum but he does not like this level, he doesn't feel well. He prefers it at 96%. -Patient and his are still planning to move to [facility], on a slow timeframe. They just took possession of their new house, and have yet to start the process of preparing their [employer] house for sale. Social History - Living Situation Living arrangement: At home Living Situation: With spouse/s.o. Support System: Spouse, Jesusita, is his sole caregiver. 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 They have 4 sons, 2 live in [facility], 2 live south of [place]. They plan to move to [facility], time frame still to be determined. They just took possession of their new home there. Medications/Allergies - Medications Home Medications: Ambulatory Orders Medication Instructions Recorded Confirmed Albuterol [Proventil Hfa] 2 puffs INH Q4H PRN 12/18/12 02/25/18 Tiotropium [Spiriva] 1 puffs INH DAILY 12/18/12 02/25/18 Albuterol 3 ml INH 5XD PRN 09/15/16 02/25/18 Fluticasone [Flonase] 2 sprays BHUPINDER QPM PRN 09/15/16 02/25/18 Omeprazole [PriLOSEC] 20 mg PO QDAC 01/31/17 02/25/18 Fluticasone/Salmeterol [Advair 1 puffs INH BID 05/11/17 02/25/18 500-50 Diskus] Diltiazem HCl [Diltiazem ER] 180 mg PO DAILY 09/03/17 02/25/18 Enalapril [Vasotec] 5 mg PO BID 09/03/17 02/25/18 Acetaminophen/Diphenhydramine 2 tab PO QPM PRN 09/04/17 02/25/18 [Tylenol Pm Ex-Strength Caplet] Atorvastatin [Lipitor] 40 mg PO DAILY 12/20/17 02/25/18 Roflumilast [Daliresp] 500 mcg PO DAILY 12/21/17 02/25/18 Tamsulosin [Flomax] 0.4 mg PO DAILY 12/21/17 02/25/18 guaiFENesin [Mucinex] 600 mg PO BID 12/22/17 02/25/18 Aspirin [Adult Low Dose Aspirin EC] 1 tab PO DAILY 01/28/18 02/25/18 Azithromycin 250 mg PO .M,W,F 01/28/18 02/25/18 Morphine Sulfate 0.125 ml PO Q8H PRN 01/28/18 02/25/18 Nitroglycerin 1 tab PO PRN PRN 01/28/18 02/25/18 - Allergies Allergies/Adverse Reactions: Allergies Allergy/AdvReac Type Severity Reaction Status Date / Time penicillin G Allergy Unknown Rash Verified 12/28/17 20:52 Penicillins Allergy Rash Verified 12/28/17 20:52 Review of Systems - Constitutional Constitutional: reports: Fatigue (improved), Poor appetite (less appetite than previously), Weight loss (was 206 lbs, down from 240 lbs) - Ears, Nose & Throat Ears, Nose & Throat: reports: Hearing loss, Tinnitus, Postnasal drainage, Other (sinus problems) - Cardiovascular Cardiovascular: reports: Exertional dyspnea, Decr. exercise tolerance - Respiratory Respiratory: reports: Sputum production (recent onset of phlegm after smoking a cigarette. Does not want to quite smoking.), SOB at rest, SOB with exertion - Gastrointestinal Gastrointestinal: reports: Diarrhea (loose stools), Other (Less appetite than previous baseline). denies: Constipation - Genitourinary Genitourinary: reports: Dysuria, Incontinence - Musculoskeletal Musculoskeletal: denies: Assistive devices, Transfer issues - Neurological Neurological: denies: Memory problems Physical Exam - Vital Signs Temperature: 96.9 F Pulse Rate: 97 O2 Saturation: 96 (6L O2) Blood Pressure: 128/60 - Physical Exam General Appearance: positive: No acute distress, Alert Eyes Bilateral: positive: EOMI, No lid inflammation, Conjunctivae nml, No scleral icterus ENT: positive: No signs of dehydration Cardiovascular: positive: Regular rate & rhythm, Systolic murmur (2/6) Respiratory: positive: No respiratory distress, Diminished throughout Abdomen: positive: Obese Skin: positive: No symptoms Extremities: positive: Pedal edema (1+) Neurologic/Psychiatric: positive: Oriented x3, Mood/affect nml Palliative Care - POLST Patient has POLST: Yes POLST Status: Full Code Performance Status: Improved since having two blood transfusions. Legs don't feel as weak, ambulation is easier. - Palliative Care Discussion: Jesusita, his , pointed out that his old POLST was CPR and Full code, which seemed to contradict advanced care directives he had signed a few years previously. So we created a new POLST to add caveats and explanations to the goals section. He continues to want CPR and intubation/full code if his condition is treatable and reversible. He wants prolongation of life if possibe, but does not want long -term intubation to be put on indefinite life support. If the prognosis is that he can only survue on long-term life support, take him of life support. He only wants intubation for a few days, to stabilize. Otherwise let him go. He wants no tracheostomy and no tube feeding. I discussed the [employer] pamphlet with them, which is a useful tool. I will mail them a copy. Patient asked about what to expect when dying of respiratory illness, so we discussed this and I provided anticipatory guidance, including physical and emotional trajectories of end of life journey, risks and most common scenarios, continuum of care and how hospice is involved. We reviewed administration of morphine solution for respiratory distress, air hunger, and anxiety. I provided another 1mL syringe and demonstrated how to fill and administer it. Impression and Recommendations - Palliative Care Impression: 77-year-old male with severe, chronic shortness of air, secondary to end-stage COPD, on continuous 6 L oxygen via nasal cannula. His condition has improved since having 2 blood transfusions. His lungs do not feel any better but his legs do and he feels more energy. He continues to have a severe functional and quality of life deficits due to his respiratory disease. Palliative care will continue to provide support and oversight while the patient and his family are still living in this area. They plan to move sometime over the next half year or so. Recommendations/Counseling Done: End-stage COPD: At baseline. Uses Trilogy 4 hours a day, doesn't like it at night, it dries his mouth. Ralph Down from [employer] is his student services representative and he is visiting more frequently than previous reps and helping him use it correctly. I performed O2 saturation tests for his oxygen Certificate of Medical Necessity and faxed it back to [facility] [place]: -96% on 6L O2 at rest -83% on room air, at rest after 5-6 minutes -78% on room air after 1.5-2 minutes of exertion Note that patient has been told to maintain O2 levels maximum 93% but doesn't feel well at that level, he keeps it at 96%. Anemia/Low RBCs: Improved after two blood transfusions, he feels much better. The most recent one was 2 weeks ago. Hbg now 11.2 instead of 9.2. Goal is 12. Advanced care planning: Filled out new POLST, still Full Code, included goals of care. See palliative care discussion for details. Spouse provided copy of DPOA papers. I discussed [employer] Wishes pamphlet with patient and spouse, and mailed him a copy. Next visit 03/27/18, 10:30-11:00 Time Spent: 70 minutes were spent with more than 50% of the time spent on counseling, anticipatory guidance, education, and coordination of care.
== END 2018-02-27 15:00 | disposition home or self-care (01) ==
LOC: PC 14:59
PROVIDERS: ATTEND Nurse Practitioner
DX: Z51.5 Encounter for palliative care (principal); J44.9 Chronic obstructive pulmonary disease, unspecified; Z99.81 Dependence on supplemental oxygen; D64.9 Anemia, unspecified; J96.11 Chronic respiratory failure with hypoxia; D75.1 Secondary polycythemia; F17.210 Nicotine dependence, cigarettes, uncomplicated; Z79.82 Long term (current) use of aspirin; Z79.891 Long term (current) use of opiate analgesic
CPT/HCPCS: 99350

== ENCOUNTER 2018-03-27 14:51 | Outpatient (CLI) | payer MEDICARE, OTHER ==
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
== END 2018-03-27 14:52 | disposition home or self-care (01) ==
LOC: PC 14:51
PROVIDERS: ATTEND Nurse Practitioner
DX: Z51.5 Encounter for palliative care (principal); J44.9 Chronic obstructive pulmonary disease, unspecified; Z99.81 Dependence on supplemental oxygen; F17.200 Nicotine dependence, unspecified, uncomplicated; R09.02 Hypoxemia; Z79.82 Long term (current) use of aspirin; F41.9 Anxiety disorder, unspecified; F32.9 Major depressive disorder, single episode, unspecified; Z79.891 Long term (current) use of opiate analgesic
CPT/HCPCS: 99349

== ENCOUNTER 2018-04-24 10:25 | Outpatient (CLI) | payer MEDICARE, OTHER ==
--- NOTE | 2018-04-24 16:55 | CONSULTATION NOTE ---
Palliative Care Follow Up - Referral Referring Provider: Cynthia Lake PA-C Time of Visit: 04/24/2018. 10:25 - 11:15 Referral setting: Home (Seen in home setting due to taxing and considerable effort required to leave the home due to severe shortness of breath secondary to end-stage COPD.) Referral Reason: SOA / Medicine management - Information Sources Records reviewed: Previous records reviewed History/Review of Systems obtained from: Patient, Family Exam limitations: No limitations - History of Present Illness Update Brief HPI Update: -78-year-old male with severe, chronic shortness of air and hypoxia, secondary to end-stage COPD. He is on 6 L oxygen via nasal cannula. 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 Sep 2016: S/P small bowel resection and anastomosis secondary to bowel obstruction with perforation, declined EGD or colonoscopy. May 2017: DC and cardiac stent, was on Plavix, now on aspirin 81. August 2017: GI bleed and C. difficile December 2017: GI bleed and anemia, RBC transfusion. December 2017: ED visit for COPD exacerbation/increasing dyspnea, -COPD managed by PCP Kemi Lake. -Consult team with Dr. Vira abdi in pulmonology. -Patient and his are preparing to relocate to [facility], the nearest town will be [place], [place]. -We discussed transferring their medical care to a clinic or practice in their new town. I provided information about Palliative Care through the [facility] in the [facility] ([facility]). -[facility]'s Palliative care ([phone]) currently accepts only referrals from the [facility]. They provide an outpatient clinic once a week, and there is a long wait to get an appointment. -The patient reports being back at his baseline. -He and his drove to their [facility] home last week, and he "spent 2 days running around" and found that he "went down" for three days (Fri,Sat,Sun), felt like he recuperated on Saturday and was able to drive back to [facility] on Saturday. He did the driving and felt fine. -Today he feels fine and at his baseline. He most recent blood transfusion was in February 2017. -His biggest concern today is the most recent scripts (written by Dr Patel) for his two Albuterol medications do not have the proper quantity and they have not been successful at contacting her. They like to get 3 months' worth of medicine at a time. Social History - Living Situation Living arrangement: At home Living Situation: With spouse/s.o. Support System: He and his , Jesusita, have purchased a home in [place] [facility] [place] [place] and plan to move there later in the year, June at the earliest. Jesusita travels there regularly and is setting up the home. They have 4 sons, 2 in [facility] and 2 live south of [place]. Medications/Allergies - Medications Home Medications: Ambulatory Orders Medication Instructions Recorded Confirmed Albuterol [Proventil Hfa] 2 puffs INH Q4H PRN 12/18/12 03/27/18 Tiotropium [Spiriva] 1 puffs INH DAILY 12/18/12 03/27/18 Albuterol 3 ml INH 5XD PRN 09/15/16 03/27/18 Fluticasone [Flonase] 2 sprays BHUPINDER QPM PRN 09/15/16 03/27/18 Omeprazole [PriLOSEC] 20 mg PO QDAC 01/31/17 03/27/18 Fluticasone/Salmeterol [Advair 1 puffs INH BID 05/11/17 03/27/18 500-50 Diskus] Diltiazem HCl [Diltiazem ER] 180 mg PO DAILY 09/03/17 03/27/18 Enalapril [Vasotec] 5 mg PO BID 09/03/17 03/27/18 Acetaminophen/Diphenhydramine 2 tab PO QPM PRN 09/04/17 03/27/18 [Tylenol Pm Ex-Strength Caplet] Atorvastatin [Lipitor] 40 mg PO DAILY 12/20/17 03/27/18 Roflumilast [Daliresp] 500 mcg PO DAILY 12/21/17 03/27/18 Tamsulosin [Flomax] 0.4 mg PO DAILY 12/21/17 03/27/18 guaiFENesin [Mucinex] 600 mg PO BID 12/22/17 03/27/18 Aspirin [Adult Low Dose Aspirin EC] 1 tab PO DAILY 01/28/18 03/27/18 Azithromycin 250 mg PO .M,W,F 01/28/18 03/27/18 Morphine Sulfate 0.125 ml PO Q8H PRN 01/28/18 03/27/18 Nitroglycerin 1 tab PO PRN PRN 01/28/18 03/27/18 Senna [Senokot] 1 - 2 tab PO QPM 04/24/18 04/24/18 Tolterodine Tartrate [Tolterodine 2 mg PO QPM 04/24/18 04/24/18 Tartrate ER] - Allergies Allergies/Adverse Reactions: Allergies Allergy/AdvReac Type Severity Reaction Status Date / Time penicillin G Allergy Unknown Rash Verified 12/28/17 20:52 Penicillins Allergy Rash Verified 12/28/17 20:52 Review of Systems - Constitutional Constitutional: reports: Poor appetite, Weight stable (Range is 202-206 lbs. Previously weighed 240 lbs) - Ears, Nose & Throat Ears, Nose & Throat: reports: Hearing loss, Tinnitus - Cardiovascular Cardiovascular: reports: Exertional dyspnea, Decr. exercise tolerance - Respiratory Respiratory: reports: SOB at rest (felt SOA in [facility]), SOB with exertion - Gastrointestinal Gastrointestinal: reports: Other (appetite less than in previous years). denies: Constipation - Genitourinary Genitourinary: reports: Other (retention; started on tolterodine) Physical Exam - Vital Signs Temperature: 97.4 F Pulse Rate: 94 O2 Saturation: 96 (on 6L O2) Blood Pressure: 109/56 (wrist cuff) - Physical Exam General Appearance: positive: No acute distress, Alert Eyes Bilateral: positive: EOMI, No lid inflammation, Conjunctivae nml, No scleral icterus ENT: positive: No signs of dehydration Neck: positive: Trachea midline Cardiovascular: positive: Regular rate & rhythm, No murmur Respiratory: positive: Chest non-tender, No respiratory distress, Diminished throughout, Wheezes, Rhonchi Abdomen: positive: Obese Skin: positive: No symptoms Extremities: positive: No pedal edema Neurologic/Psychiatric: positive: Oriented x3, Mood/affect nml Palliative Care - POLST Patient has POLST: Yes Pain: No pain Anxiety: Moderate (4-6) (regarding moving to [facility]) Sleep: Sleeps well Constipation: No Performance Status: At baseline: ambulatory, continent, chronic SOA. - Palliative Care Discussion: The patient has reservations about leaving their current home and moving to [facility], but it's a "done deal." This comes out in ways, such as being unhappy that he won't be near a [employer] base to buy cheap cigarettes, or that he has worse SOA there because there is less oxygen in the air in [facility] due to its higher elevation. His worries seem to come out in peevishness and a short temper. He and his were in their new home in [facility] last week and he admits to overdoing it for several days, and it took about 3 days to recuperate. By Saturday he felt better and was able to drive all the way back to [facility] on Saturday. We discussed their need to find new providers over there, and I provided the information about [facility]. I did provide education on the morphine solution he uses is very concentrated and some pharmacies may not fill the script since he is not on Hosp[facility]. I did explain his provider could use a less concentrated solution and he should not have problems getting that filled. His current dosing is low, 2.5mg. Impression and Recommendations - Palliative Care Impression: 78-year-old male with severe, chronic shortness of air, secondary to end-stage COPD, on continuous 6 L oxygen via nasal cannula. He is at his baseline SOA but overstretched himself on a recent trip to their new home in [facility]. He feels stressed and discontent with the planned move to [facility] in the next few months. Palliative care will continue to provide support and oversight while the patient still lives on [facility], and has provided information on the palliative care program in the [facility]. Recommendations/Counseling Done: End-stage COPD: Baseline SOA; Continue Trilogy, spiriva, Proventil/albuterol, Advair, roflumilast, and morphine solution 0.125ml (2.5mg). On 6L O2, keeps the O2 sats at 96% though he has been advised to keep it at 93%. Provided scripts for 3 month supply of his two Albuterol scripts from Dr Patel: Albuterol/ProAir HFA 90mcg, inhale 2 puffs Q4h PRN, 12 boxes; and Albuterol inhaler 0.083% 2.5mg/3mL solution. Use 1 ampule via nebulizer 5 times per day PRN for SOB - 54 boxes. Tobacco use disorder: Patient is a current smoker, no desire to quite. Advanced care planning: Provided information on the [facility] program - [phone]. There is a long waitlist for a clinical appointment, and they accept referrals only from [facility] providers. 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 Next visit - 05/30 12:30pm Time Spent: 15 minutes were spent with more than 50% of the time spent on counseling, education, anticipatory guidance, and coordination of CARE.
== END 2018-04-24 10:26 | disposition home or self-care (01) ==
LOC: PC 10:25
PROVIDERS: ATTEND Nurse Practitioner
DX: Z51.5 Encounter for palliative care (principal); J44.9 Chronic obstructive pulmonary disease, unspecified; F17.200 Nicotine dependence, unspecified, uncomplicated; Z99.81 Dependence on supplemental oxygen; J96.11 Chronic respiratory failure with hypoxia; F41.9 Anxiety disorder, unspecified
CPT/HCPCS: 99349

== ENCOUNTER 2018-05-30 16:22 | Outpatient (CLI) | payer MEDICARE, OTHER ==
--- NOTE | 2018-05-30 17:14 | CONSULTATION NOTE ---
Palliative Care Follow Up - Referral Referring Provider: Cynthia Lake PA-C Time of Visit: 05/30/2018 Referral setting: Home Referral Reason: Chronic SOA - Information Sources Records reviewed: Previous records reviewed History/Review of Systems obtained from: Patient, Family Exam limitations: No limitations - History of Present Illness Update Brief HPI Update: -78-year-old male with severe, chronic shortness of air and hypoxia, secondary to end-stage COPD. He is on 6 L oxygen via nasal cannula. 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 Sep 2016: S/P small bowel resection and anastomosis secondary to bowel obstruction with perforation, declined EGD or colonoscopy. May 2017: MT and cardiac stent, was on Plavix, now on aspirin 81. August 2017: GI bleed and C. difficile December 2017: GI bleed and anemia, RBC transfusion. December 2017: ED visit for COPD exacerbation/increasing dyspnea, -COPD managed by PCP Kemi Lake. -Consult team with Dr. Vira Patel, manager channel. -Patient reports he is stable, feels at his baseline. He reiterates that he doesn't want to move from [facility], he likes it here, everything he knows is here. -He appears well and has improved skin tone. -He is argumentive and impatient with his , which appears to be baseline. -They estimate they'll be out of the house and relocated over in [facility] by mid-June, so today is likely the last palliative care visit, unless an unexpected need arises. -The patient states he will not quit smoking and he's tired of medical people talking to him about smoking. He will smoke until the day he dies. -He also will not use the Trilogy respirator anymore because he doesn't feel any better when he uses it. His manager channel advises him to use it to lower CO2 levels. He declines. -He uses the nebulizer 4-5x/day. Social History - Living Situation Living arrangement: At home Living Situation: With spouse/s.o. Support System: He and his , Jesusita, are moving to [place] in [facility] next month, so palliative care will be terminated. They have 4 sons, 2 in [facility] and 2 live south of [place]. Medications/Allergies - Medications Home Medications: Ambulatory Orders Medication Instructions Recorded Confirmed Albuterol [Proventil Hfa] 2 puffs INH Q4H PRN 12/18/12 03/27/18 Tiotropium [Spiriva] 1 puffs INH DAILY 12/18/12 03/27/18 Albuterol 3 ml INH 5XD PRN 09/15/16 03/27/18 Fluticasone [Flonase] 2 sprays BHUPINDER QPM PRN 09/15/16 03/27/18 Omeprazole [PriLOSEC] 20 mg PO QDAC 01/31/17 03/27/18 Fluticasone/Salmeterol [Advair 1 puffs INH BID 05/11/17 03/27/18 500-50 Diskus] Diltiazem HCl [Diltiazem ER] 180 mg PO DAILY 09/03/17 03/27/18 Enalapril [Vasotec] 5 mg PO BID 09/03/17 03/27/18 Acetaminophen/Diphenhydramine 2 tab PO QPM PRN 09/04/17 03/27/18 [Tylenol Pm Ex-Strength Caplet] Atorvastatin [Lipitor] 40 mg PO DAILY 12/20/17 03/27/18 Roflumilast [Daliresp] 500 mcg PO DAILY 12/21/17 03/27/18 Tamsulosin [Flomax] 0.4 mg PO DAILY 12/21/17 03/27/18 guaiFENesin [Mucinex] 600 mg PO BID 12/22/17 03/27/18 Aspirin [Adult Low Dose Aspirin EC] 1 tab PO DAILY 01/28/18 03/27/18 Azithromycin 250 mg PO .M,W,F 01/28/18 03/27/18 Morphine Sulfate 0.125 ml PO Q8H PRN 01/28/18 03/27/18 Nitroglycerin 1 tab PO PRN PRN 01/28/18 03/27/18 Senna [Senokot] 1 - 2 tab PO QPM 04/24/18 04/24/18 Tolterodine Tartrate [Tolterodine 2 mg PO QPM 04/24/18 04/24/18 Tartrate ER] - Allergies Allergies/Adverse Reactions: Allergies Allergy/AdvReac Type Severity Reaction Status Date / Time penicillin G Allergy Unknown Rash Verified 12/28/17 20:52 Penicillins Allergy Rash Verified 12/28/17 20:52 Review of Systems - Constitutional Constitutional: reports: Weight loss (200 lbs now. He was previously 202-206 lbs. Prior baseline was 240 lbs.), Other (Appetite is not poor, but less robust than previously.) - Ears, Nose & Throat Ears, Nose & Throat: reports: Hearing loss, Tinnitus - Cardiovascular Cardiovascular: reports: Exertional dyspnea - Respiratory Respiratory: reports: SOB with exertion (Immediate SOA when he leans forward/bends over) - Gastrointestinal Gastrointestinal: denies: Constipation - Genitourinary Genitourinary: reports: Other (on Tolterodine for retention). denies: Inconti nence - Musculoskeletal Musculoskeletal: denies: Assistive devices, Transfer issues Physical Exam - Vital Signs Temperature: 96.6 F Pulse Rate: 98 O2 Saturation: 95 (6L O2) Blood Pressure: 119/71 - Physical Exam General Appearance: positive: No acute distress, Alert Eyes Bilateral: positive: EOMI, No lid inflammation, Conjunctivae nml, No scleral icterus ENT: positive: No signs of dehydration Neck: positive: No JVD, Trachea midline Cardiovascular: positive: Regular rate & rhythm, No murmur Respiratory: positive: Chest non-tender, No respiratory distress, Diminished throughout (more on left side) Skin: positive: No symptoms Extremities: positive: No pedal edema Neurologic/Psychiatric: positive: Oriented x3, Mood/affect nml Palliative Care - POLST Patient has POLST: Yes POLST Status: Full Code Pain: No pain Dyspnea: Comment (at baseline. Continuous O2, 6L/minute) - Palliative Care Discussion: Patient continues to express his unhappiness at moving to [facility]. His spouse is looking forward to it. They have received referrals to two pulmonologists in the [facility] system, and the one they really like still accepts new patients. I have already supplied them information regarding the palliative care service with [facility]. The patient is still able to drive, but on the [address] he goes through between 3-4 large cannisters of O2. Impression and Recommendations - Palliative Care Impression: 78-year-old male with severe, chronic shortness of air, secondary to end-stage COPD, on continuous 6 L oxygen via nasal cannula. He is stable and appears improved. He and his will move to [facility] next month and so will discontinue [facility] palliative care services. They have received referrals for a manager channel in the [facility] system and also are researching for a new PCP. Recommendations/Counseling Done: End-stage COPD: At this baseline SOA. He no longer uses Trilogy respirator. He continues spiriva, Proventil/albuterol, Advair, roflumilast, and morphine solution 0.125ml (2.5mg), and nebulizer 4-5x/day. He is on continuous 6L O2, keeps the O2 sats at 96% though he has been advised to keep it at 93%. Last month I provided scripts for 3 month supply of his two Albuterol scripts from Dr Patel: Albuterol/ProAir HFA 90mcg, inhale 2 puffs Q4h PRN, 12 boxes; and Albuterol inhaler 0.083% 2.5mg/3mL solution. Use 1 ampule via nebulizer 5 times per day PRN for SOB - 54 boxes. Tobacco use disorder: Patient "will smoke until the day I ." Advanced care planning: Patient is full code, wants to prolong life as much as possible. They are moving to [facility] in June. They have received referrals for a PCP and manager channel over there, and it appears there is a manager channel at [facility] they like and she is accepting new patients. Palliative care will put him on hold for one month, then once it is confirmed they have relocated to [facility], will close his file. Time Spent: 25 minutes were spent with more than 50% of the time spent on counseling, education, and coordination of care.
== END 2018-05-30 16:23 | disposition home or self-care (01) ==
LOC: PC 16:22
PROVIDERS: ATTEND Nurse Practitioner
DX: J44.9 Chronic obstructive pulmonary disease, unspecified (principal); Z99.81 Dependence on supplemental oxygen; I25.2 Old myocardial infarction; F17.200 Nicotine dependence, unspecified, uncomplicated; Z95.5 Presence of coronary angioplasty implant and graft; Z79.82 Long term (current) use of aspirin; Z79.51 Long term (current) use of inhaled steroids
CPT/HCPCS: 99348